=== PATIENT | female | born 1975 | race Caucasian/White ===

== ENCOUNTER 2020-12-21 11:19 | Outpatient (REF) | payer OTHER, SELFPAY ==
[2020-12-21 11:38] LABS: COVID-19 Test Negative (Negative)
== END 2020-12-21 11:20 | disposition home or self-care (01) ==
LOC: HO.EMPCOV 11:19
PROVIDERS: Visit Provider Internal Medicine
DX: Z20.822 Contact with and (suspected) exposure to COVID-19 (principal)
CPT/HCPCS: 36415; 87635; C9803

== ENCOUNTER 2023-04-30 18:46 | Emergency (ER) | payer OTHER, SELFPAY ==
--- NOTE | ~2023-04-30 | CT_ITS ---
EXAMINATION: CT ABDOMEN AND PELVIS WITHOUT CONTRAST CLINICAL INFORMATION: Left flank pain with question of kidney stones COMPARISON: CT abdomen pelvis 08/05/2016 TECHNIQUE: Multidetector volumetric imaging was performed from the superior aspect of the liver through the pubic symphysis. Sagittal and coronal reformatted images were obtained on the technologist's workstation. This CT examination was performed using dose optimization techniques as appropriate, variously including the following: *Automated exposure control *Adjustment of mA and/or kV according to patient size (this includes techniques or standardized protocols for targeted exams where dose is matched to indication/reason for exam; i.e. extremities or head) *Use of iterative reconstruction technique DLP: 709 mGy-cm FINDINGS: LUNG BASES: Some small micronodules are present at the lung bases (for example 3 mm right middle lobe 4:47). No pleural effusions or consolidations. LIVER, GALLBLADDER, AND BILIARY TREE: The liver is enlarged measuring 20.8 cm in cephalocaudad dimension and demonstrates decreased attenuation consistent with hepatic steatosis. No focal hepatic lesion or biliary ductal dilatation is present. Status post cholecystectomy. PANCREAS: Unremarkable. Some coarse calcifications are seen in the tail of the pancreas. SPLEEN: Unremarkable. ADRENAL GLANDS: Unremarkable. KIDNEYS AND URETERS: The kidneys are normal in size and shape. Again seen are findings consistent with medullary nephrocalcinosis with faint calcifications throughout the medullary regions of both kidneys. Some larger calculi are present the largest being in the left upper pole measuring 3 mm. There is mild left-sided pelvocaliectasis with dilatation of the ureter down to the level of a 6 mm stone in the mid to distal ureter. The stone measures 677 Hounsfield units. BLADDER: Unremarkable. GASTROINTESTINAL TRACT: The small and large bowel are unremarkable. The appendix is not seen with certainty but there is no evidence of appendicitis appendicitis. ABDOMINAL WALL: Small periumbilical hernia seen containing only fat. LYMPH NODES: No retroperitoneal lymphadenopathy. VASCULAR: Unremarkable. PELVIC VISCERA: Unremarkable. OSSEOUS STRUCTURES: Unremarkable. CT/CT abdomen pelvis wo IV con IMPRESSION: 1. Obstructing 6 mm mid to distal left ureteral calculus with associated hydronephrosis. 2. Incidental note made of enlarged fatty liver, cholecystectomy and coarse calcifications in the tail of the pancreas. Fleischner guidelines were followed.
[2023-04-30 20:00] VITALS: BP 122/77; PULSE 77; RESP 18; TEMP 36.8; O2SAT 94; BMI 37.8
--- NOTE | 2023-04-30 20:01 | ED.ABDPAIN ---
HPI - Abdominal Pain General Chief Complaint: General Medical Stated Complaint: kidney stones Time Seen by Provider: 05/01/23 00:59 Source: patient Mode of arrival: ambulatory Limitations: no limitations History of Present Illness HPI narrative: Patient's history of frequent kidney stones lastone was 2 years ago comes here for for 3 days of left flank pain getting worse with nausea no vomiting does have hematuria no fever no chills no vomiting Related Data Previous Rx's Medication Instructions Recorded hydromorphone 2 mg tablet 2 mg PO Q6H PRN pain #14 tabs 05/01/23 (Dilaudid) ondansetron 4 mg disintegrating 4 mg PO Q6-8H PRN nausea and 05/01/23 tablet vomiting #10 tabs tamsulosin 0.4 mg capsule (Flomax) 0.4 mg PO BEDTIME #10 caps 05/01/23 Allergies Allergy/AdvReac Type Severity Reaction Status Date / Time erythromycin base Allergy Severe HIVES, Unverified 08/12/20 16:58 [ERYTHROMYCIN BASE] SWELLING morphine [MORPHINE] Allergy Severe SWELLING,HI Unverified 08/12/20 16:58 VES mushroom Allergy Severe SWELLING/HI Unverified 08/12/20 16:58 VES codeine [Codeine] Allergy Intermediate HIVES/SWELL Unverified 08/12/20 16:58 ING meperidine [From Demerol] Allergy Intermediate HIVES/SWELL Unverified 08/12/20 16:58 ING metronidazole [From Flagyl] Allergy Intermediate HIVES/SWELL Unverified 08/12/20 16:58 ING oxycodone [From Tylox] Allergy Intermediate HIVES/SWELL Unverified 08/12/20 16:58 ING Penicillins Allergy Intermediate HIVES/SWELL Unverified 08/12/20 16:58 ING Sulfa (Sulfonamide Allergy Intermediate HIVES/SWELL Unverified 08/12/20 16:58 Antibiotics) ING tramadol [TRAMADOL] Allergy Unknown SWELLING Unverified 08/12/20 16:58 ondansetron [From ZOFRAN] AdvReac Intermediate VOMITING Unverified 08/12/20 16:58 codeine Allergy Unknown swelling, Uncoded 08/07/16 00:00 hives demerol Allergy Unknown swelling Uncoded 08/07/16 00:00 hives e-mycin Allergy Unknown swelling, Uncoded 08/07/16 00:00 hives morphine Allergy Unknown swelling, Uncoded 08/07/16 00:00 hives PCN Allergy Unknown swelling, Uncoded 08/07/16 00:00 hives sulfa Allergy Unknown swelling, Uncoded 08/07/16 00:00 hives toradol Allergy Unknown swelling, Uncoded 08/07/16 00:00 hives vicodin Allergy Unknown vomiting Uncoded 08/07/16 00:00 zofran Allergy Unknown vomiting Uncoded 08/07/16 00:00 From TORADOL AdvReac Severe VOMITING Uncoded 08/12/20 16:58 Review of Systems Review of Systems Yes all other systems are reviewed and are negative PMFSH Social History Social History Advance Directives: No Advance Directives Information Provided: Yes Physical Exam ED Vital Signs: Vital Signs - 24 hr 04/30/23 20:00 04/30/23 22:29 Temperature 98.3 F 97.3 F Pulse Rate 77 79 Respiratory Rate 18 16 Blood Pressure 122/77 142/72 H Pulse Oximetry 94 98 Oxygen Delivery Method Room Air Room Air BMI result Body Mass Index 37.8 Appearance: Alert. Oriented X3. Mild distress pain level 6/10 ENT: Pharynx normal. Oral Mucosa moist Neck: Normal inspection. Neck supple. CVS: Normal heart rate and rhythm. Pulses normal. Respiratory: No respiratory distress. Equal air entry bilateral, Abdomen: Soft and nontender. Bowel sounds are present, , left CVA tenderness Skin: Skin warm and dry. Normal skin color. Normal skin turgor. Neuro: Oriented X 3. Course Course Course Narrative: Patient complains of left flank pain radiating to left groin typical of multiple prior episodes of kidney stones, she is nauseous no vomiting no fever She has had stones which needed to be treated with lithotripsy CT scan urinalysis labs ordered, patient is given Toradol in triage as well as Zofran This is rapid medical exam in triage pending full evaluation in the department by provider Medical Decision Making Lab Data MDM Lab Attestation statement: I reviewed the patient's lab results. 04/30/23 22:41 04/30/23 22:41 Labs: Lab Results 04/30/23 04/30/23 04/30/23 Range/Units 22:41 22:41 22:41 WBC 10.7 (4.8-10.8) X10*3/uL RBC 4.96 (4.20-5.50) X10*6/uL Hgb 13.4 (12.0-16.0) g/dl Hct 41.8 (37.0-47.0) % MCV 84.3 (80.0-98.0) fL MCH 27.0 (27.0-33.0) pg MCHC 32.1 (31.0-35.0) g/dl RDW 14.3 (11.0-16.0) % Plt Count 244 (160-400) X10*3/uL MPV 9.5 (9.4-12.3) fL Immature Gran % (Auto) 0.9 H (0.0-0.4) % Neut % (Auto) 47.8 (45-73) % Lymph % (Auto) 43.1 H (20-40) % [place] % (Auto) 5.5 (2-11) % Eos % (Auto) 2.2 (0-4) % Baso % (Auto) 0.5 (0-2) % Lymph # (Auto) 4.6 (1.2-4.9) X10*3/uL [place] # (Auto) 0.6 (0.1-1.2) X10*3/uL Eos # (Auto) 0.2 (0.0-0.4) X10*3/uL Baso # (Auto) 0.1 (0.0-0.2) X10*3/uL Abs Immat Gran (auto) 0.10 H (0.00-0.03) X10*3/uL Absolute Neuts (auto) 5.1 (2.0-8.3) x10*3/uL Absolute Nucleated RBC 0.000 (0.0-0.012) X10*3/uL Nucleated RBC % (auto) 0.0 (0.0-0.2) /100WBC Sodium 142 (135-145) mmol/L Potassium 4.1 (3.3-5.1) mmol/L Chloride 110 H (96-108) mmol/L Carbon Dioxide 20 L (22-29) mmol/L Anion Gap 16 (12-20) BUN 11 (9-16) mg/dL Creatinine 0.68 (0.5-1.4) mg/dL Estim Creat Clear Calc 104.9 Estimated GFR > 60 Random Glucose 98 (60-115) mg/dL Calcium 8.9 (8.4-10.2) mg/dL Urine Color Yellow Urine Appearance Cloudy Urine pH 6.0 (5.0-9.0) Ur Specific [place] 1.025 (1.005-1.025) Urine Protein 30 (1+) H (Neg-Trace) mg/dL Urine Glucose (UA) Negative (Negative) mg/dL Urine Ketones Trace (Negative) mg/dL Urine Blood Large (3+) H (Negative) Urine Nitrite Negative (Negative) Ur Leukocyte Esterase Negative (Negative) Urine RBC >20 H (0-2) /HPF Urine WBC 6-10 H (0-5) /HPF Ur Squamous Epith Cells 11-20 (0-2) /HPF Urine Bacteria 1+ (None Seen) Hyaline Casts 3-5 (0-2) /LPF Radiology Impression Discussion of test interpretation with radiology: I have reviewed the radiologist's reading. Radiologist Impression: RDER #: [id number] CT/CT abdomen pelvis wo IV con IMPRESSION: 1.? Obstructing 6 mm mid to distal left ureteral calculus with associated hydronephrosis. 2.? Incidental note made of enlarged fatty liver, cholecystectomy and coarse calcifications in the tail of the pancreas. ? Discharge Plan Discharge Clinical Impression: Left ureteral calculus Patient Disposition: Home, Self-Care Instructions: Ureteral Stones (ED) Additional Instructions: Drink plenty of fluids pain medication as prescribed Flomax 1 tablet daily until stone passes follow-up with your urologist if pain continues Prescriptions: New hydromorphone [Dilaudid] 2 mg tablet 2 mg PO Q6H PRN (Reason: pain) Qty: 14 0RF Rx Instructions: Partial Fill upon patient request. ondansetron 4 mg tablet,disintegrating 4 mg PO Q6-8H PRN (Reason: nausea and vomiting) Qty: 10 0RF tamsulosin [Flomax] 0.4 mg capsule 0.4 mg PO BEDTIME Qty: 10 0RF
[2023-04-30 22:29] VITALS: BP 142/72; PULSE 79; RESP 16; TEMP 36.3; O2SAT 98
--- NOTE | 2023-04-30 22:43 | MHC.EDTECH ---
PATIENT BLOOD DRAWN ,URINE SAMPLE COLLECTED AND SENT TO LAB ,VITALS SIGN RE CHECK .
[2023-04-30 22:45] LABS: MANUAL DIFF FLAG NO
[2023-04-30 22:46] LABS: Basophils Absolute Auto 0.1 X10*3/uL (0.0-0.2); Basophils Percent Auto 0.5 % (0-2); Eosinophils Absolute Auto 0.2 X10*3/uL (0.0-0.4); Eosinophils Percent Auto 2.2 % (0-4); Hematocrit 41.8 % (37.0-47.0); Hemoglobin 13.4 g/dl (12.0-16.0); Imm Gran Pct Auto 0.9 % (0.0-0.4); Lymphocytes Absolute Auto 4.6 X10*3/uL (1.2-4.9); Lymphocytes Percent Auto 43.1 % (20-40); Mean Corpuscular HGB Conc 32.1 g/dl (31.0-35.0); Mean Corpuscular Volume 84.3 fL (80.0-98.0); Mean Platelet Volume 9.5 fL (9.4-12.3); Monocytes Absolute Auto 0.6 X10*3/uL (0.1-1.2); Monocytes Percent Auto 5.5 % (2-11); Neutrophils Absolute Auto 5.1 x10*3/uL (2.0-8.3); Neutrophils Percent Auto 47.8 % (45-73); Platelet Count 244 X10*3/uL (160-400); Red Blood Count 4.96 X10*6/uL (4.20-5.50); Red Cell Distribution Width 14.3 % (11.0-16.0); White Blood Count 10.7 X10*3/uL (4.8-10.8)
[2023-04-30 22:47] LABS: Appearance Urine Cloudy; Color Urine Yellow; Glucose Urine UA Negative (Negative); Leukocyte Esterase Urine Negative (Negative); Nitrite Urine Negative (Negative); Specific Gravity - Urine 1.025 (1.005-1.025); UMIC TRIGGER UACC YES; Urine Blood Large (3+) (Negative); Urine Ketones Trace mg/dL (Negative); Urine Protein 30 (1+) mg/dL (Neg-Trace)
[2023-04-30 22:49] LABS: Bacteria Urine 1+ (None Seen); RBC Urine >20 /HPF (0-2); UACC Culture Trigger YES
[2023-04-30 23:04] LABS: Anion Gap 16 (12-20); Blood Urea Nitrogen 11 mg/dL (9-16); Calcium 8.9 mg/dL (8.4-10.2); Carbon Dioxide 20 mmol/L (22-29); Chloride 110 mmol/L (96-108); Creatinine Clr Calc Pharmacy 104.9; Estimated Glomerular Filt Rate > 60; Glucose Random 98 mg/dL (60-115); Potassium 4.1 mmol/L (3.3-5.1); Sodium 142 mmol/L (135-145)
[2023-05-01 02:05] VITALS: BP 141/71; PULSE 68; RESP 12; O2SAT 96
[2023-05-01] MEDS: HYDROmorphone HCl 2 MG/ML VIAL IVPUSH (02:17)
[2023-05-01] MEDS: ondansetron HCL 4 MG/2 ML VIAL IVPUSH (02:18)
[2023-05-01] MEDS: Ketorolac Tromethamine 30 MG/ML VIAL IVPUSH (02:18)
[2023-05-01] MEDS: Tamsulosin HCL 0.4 MG CAPSULE PO (02:19)
[2023-05-01] MEDS: 0.9 % Sodium Chloride 1,000 ML 999 ML IV (02:20)
[2023-05-01] MEDS: Prochlorperazine Edisylate 10 MG/2 ML VIAL IVPUSH (03:15)
--- NOTE | 2023-05-01 03:18 | PC.NURSE ---
Pt reports feeling nausea. MD notified and new orders entered. Pt medicated as ordered. Tolerated well.
[2023-05-01] MEDS: Ondansetron ODT 4 MG TAB.RAPDIS TRANSLINGU (05:43)
== END 2023-05-01 05:45 | disposition home or self-care (01) ==
PROVIDERS: Physician Assistant Medical; Emergency Provider Internal Medicine
DX: N13.2 Hydronephrosis with renal and ureteral calculous obstruction (principal); R10.9 Unspecified abdominal pain; K76.0 Fatty (change of) liver, not elsewhere classified; K86.89 Other specified diseases of pancreas; Z87.442 Personal history of urinary calculi
CPT/HCPCS: 36415; 74176; 80048; 81001; 85025; 87086; 96361; 96374; 96375; 99284; J1170; J1885; J2405

== ENCOUNTER 2024-09-08 00:41 | Emergency (ER) | payer SELFPAY ==
--- NOTE | ~2024-09-08 | CT_ITS ---
EXAMINATION: CT ABDOMEN AND PELVIS WITHOUT CONTRAST CLINICAL INFORMATION: Pain. COMPARISON: April 30, 2023. TECHNIQUE: Multidetector volumetric imaging was performed from the superior aspect of the liver through the pubic symphysis. Sagittal and coronal reformatted images were obtained on the technologist's workstation. This CT examination was performed using dose optimization techniques as appropriate, variously including the following: *Automated exposure control *Adjustment of mA and/or kV according to patient size (this includes techniques or standardized protocols for targeted exams where dose is matched to indication/reason for exam; i.e. extremities or head) *Use of iterative reconstruction technique DLP: 846 mGy-cm FINDINGS: LUNG BASES: The visualized lung bases are unremarkable. LIVER, GALLBLADDER, AND BILIARY TREE: The liver is of mild diminished attenuation. No focal liver lesions are seen. There is no intrahepatic biliary duct dilatation. There has been a prior cholecystectomy. PANCREAS: Unremarkable. SPLEEN: Unremarkable. ADRENAL GLANDS: Unremarkable. KIDNEYS AND URETERS: The kidneys are normal in size and position. The renal pyramids are hyperdense. There multiple bilateral renal calculi measuring up to 9 mm lower pole right kidney. There is mild left hydronephrosis and hydroureter extending into the pelvis to the level of a 5 mm calculus distal left ureter. BLADDER: Unremarkable. GASTROINTESTINAL TRACT: The small and large bowel are unremarkable. The appendix is unremarkable. ABDOMINAL WALL: No significant hernia is appreciated. LYMPH NODES: Normal. VASCULAR: Unremarkable. PELVIC VISCERA: Unremarkable. OSSEOUS STRUCTURES: Unremarkable. CT/CT abdomen pelvis wo IV con IMPRESSION: 1. Mild left hydronephrosis and hydroureter extending into the pelvis to the level of a 5 mm calculus distal left ureter. 2. Multiple bilateral renal calculi and hyperdense renal pyramids which can be seen with medullary nephrocalcinosis. 3. Mild fatty infiltration of the liver. Fleischner guidelines were followed. Electronically signed by: Loki Poole MD 09/08/2024 03:51 AM EDT
[2024-09-08 00:49] VITALS: BP 157/100; PULSE 88; RESP 20; TEMP 5373.8; TEMP 9705; O2SAT 97; BMI 37.8
--- NOTE | 2024-09-08 00:56 | ECG_ITS ---
Test Reason : GRES Blood Pressure : / mmHG Vent. Rate : 070 BPM Atrial Rate : 070 BPM P-R Int : 170 ms QRS Dur : 076 ms QT Int : 400 ms P-R-T Axes : 012 -02 024 degrees QTc Int : 432 ms Normal sinus rhythm Possible Inferior infarct (cited on or before 08-SEP-2024) Abnormal ECG When compared with ECG of 28-JUN-2020 08:57, No significant change was found Referred By: Alexandre Min Electronically Signed By:ASHLEY BORJA
[2024-09-08] MEDS: HYDROmorphone HCl 0.5 MG/0.5 ML SYRINGE IVPUSH ×2 (01:06→04:23)
[2024-09-08] MEDS: Metoclopramide HCl 10 MG/2 ML VIAL IVPUSH (01:06)
--- OUTSIDE RECORDS SUMMARY | 2024-09-08 01:08 | XMS_ITS | Continuity of Care Document ---
Author Organization [facility] Adult Address [address] [place] [address]- Care Team Providers Care Portable Trackman Name Role Phone Ema CORTEZ, Woody Primary Care Physician ( [phone] Encounter [facility] Date(s): 10/03/22 - 11/02/[address] [address]- Allergies, Adverse Reactions, Alerts Substance Reaction Severity Status codeine facial swelling, hives, trouble breathing Active erythromycin facial swelling, dif ficulty breathing swell Active penicillin facial swelling, dif ficulty breathing swell Active morphine facial swelling, dif ficulty breathing swell Active sulfa drugs facial swelling, dif ficulty breathing swell Active Toradol facial swelling, difficulty breathing Active Zofran facial swelling, difficulty breathing Active Percocet facial swelling, difficulty breathing Active Tylox facial swelling, difficulty breathing Active Vicodin facial swelling, difficulty breathing Active Demerol difficulty breathing , full facial swelling swell Active Mushrooms facial swelling, difficulty breathing Active Paxlovid rash Active Immunizations Given and Recorded Vaccine Date Status Refusal Reason SARS-CoV-2 (COVID-19) mRNA BNT-162b2 vac 12/06/20 Recorded SARS-CoV-2 (COVID-19) mRNA BNT-162b2 vac 11/16/20 Recorded influenza virus vaccine, inactivated 09/05/20 Kvng rded influenza virus vaccine, inactivated 09/17/16 Kvng rded influenza virus vaccine, inactivated 10/31/15 Give n tetanus/diphtheria/pertussis, acel(Tdap) 03/07/19 Given Measles/Mumps/Rubella Virus Vaccine 02/15/18 Recor ded Measles/Mumps/Rubella Virus Vaccine 10/28/13 Recor ded Measles/Mumps/Rubella Virus Vaccine 05/06/76 Given pneumococcal 23-valent vaccine 10/31/15 Given tetanus-diphtheria toxoids (Td) 09/04/15 Recorded tetanus-diphtheria toxoids (Td) 1 05/23/07 Given Diphth/Pertussis,Acel/Tetanus (oldterm) 01/13/97 G iven Diphth/Pertussis,Acel/Tetanus (oldterm) 10/26/79 G iven Diphth/Pertussis,Acel/Tetanus (oldterm) 75 G iven Diphth/Pertussis,Acel/Tetanus (oldterm) 75 G iven Diphth/Pertussis,Acel/Tetanus (oldterm) 75 G iven Poliovirus Vaccine, Inactivated 08/18/80 Given Poliovirus Vaccine, Inactivated 11/11/76 Given Poliovirus Vaccine, Inactivated 75 Given Poliovirus Vaccine, Inactivated 75 Given Poliovirus Vaccine, Inactivated 75 Given Not Given Vaccine Date Status Refusal Reason pneumococcal 23-valent vaccine 06/26/14 Not Given Patient Refuses 1Admin Note: VIS GIVEN TO PATIENT. Medications diclofenac 1% topical gel 1 application, Topically, 4 times a day, PRN Pain , Mild, not to exceed 8 grams/day/single joint ofupper extremities, # 100 Gm, 0 Refills, Maintenance, 08/27/22 16:44:00 EDT, Gel, [facility]/pharmacy #[id number], Partial fill upon patient request if the prescript... Start Date: 08/27/22 Status: Ordered losartan 25 mg oral tablet 2 tablet = 50 mg, By Mouth, Daily, # 30 tablet, 5 Refills, 08/21/22 10:34:00 EDT, [facility]/pharmacy #1130, 156, cm, 08/09/22 8:36:00 EDT, Height, 100, kg, 08/07/22 10:52:00 EDT, Dry Weight Start Date: 08/21/22 Status: Ordered omeprazole 40 mg oral enteric coated capsule See Instructions, TAKE 1 CAPSULE EVERY DAY BEFORE A MEAL FOR 30 DAYS, # 30 capsule, 2 Refills, Maintenance, 08/06/22 10:11:00 EDT, [id number], 155, cm, 07/14/22 9:07:00 EDT, Height, 100, kg, 06/07/21 2:39:00 EDT, Dry Weight Start Date: 08/06/22 Status: Ordered predniSONE 10 mg oral tablet See Instructions, 4 tablet By Mouth Daily for 3 days, 3 tabs for 3 days, 2 tabs for 3 days, 1 tab for 3 days, # 30 tablet, 0 Refills, Maintenance, 09/29/22 16:41:00 EDT, [id number], Partial fill upon patient request if the prescription is for... Start Date: 09/29/22 Status: Ordered Ventolin HFA 108 mcg/inh inhalation aerosol with adapter 2 puffs, Inhalation, Every 6 hours, PRN NEEDED FOR WHEEZING/SHORTNESS OF BREATH, # 18 each, 0 Refills, Maintenance, 10/23/22 13:56:00 EST, [id number], 156, cm, 09/29/22 15:57:00 EDT, Height, 100, kg, 08/07/22 10:52:00 EDT, Dry Weight Start Date: 10/23/22 Status: Ordered verapamil 40 mg oral tablet 2 tablet, By Mouth, Daily, # 60 tablet, 5 Refills, Maintenance, 10/06/22 13:05:00 EST, [facility], 156, cm, 09/29/22 15:57:00 EDT, Height, 100, kg, 08/07/22 10:52:00 EDT, Dry Weight Start Date: 10/06/22 Status: Ordered Problem List Condition Confirmation Course Effective Dates Status H ealth Status Informant Atypical nevi Confirmed Active EIN (endometrial intraepithelial neoplasia) Confirmed Active GERD (gastroesophageal reflux disease) Confirmed Active Gout Confirmed Active Hemiplegic migraine Confirmed Active Hidradenitis suppurativa Confirmed Active Hyperlipidemia Confirmed Active Hypertension Confirmed Active Medullary sponge kidney Confirmed Active Severe obesity Confirmed Active Ureterolithiasis Confirmed Active Social History Social History Type Response Tobacco Other: Quit June 27. Sex Female Patient Care team information Care Team Personnel Name: Ana Diaz RN Position: S RN Member Role: Primary Care Nurse Name: Rita Mccall RN Position: S RN Member Role: Primary Care Nurse Name: Woody Boo MD Position: S Primary Care Physician Member Role: PCP Address: Address: [address] [place] [address] [address] [place] [address]- Name: Shannon Dai RN Position: [facility] RN Member Role: Primary Care Nurse Name: Mady Simental RN Position: [facility] RN Member Role: Primary Care Nurse Name: Meek Shin RN Position: [facility] RN Member Role: Primary Care Nurse Name: Chayito Reeves RN Position: [facility] AMB Nurse Member Role: Primary Care Nurse Care Team Related Persons Name: MICHELLE BROOKS Address: home [address] [address] Name: STEPHEN BROOKS Address: home [address] [place] [address] Name: PATRICIA BERNARDO Address: home [address] [place] [address]
--- OUTSIDE RECORDS SUMMARY | 2024-09-08 01:08 | XMS_ITS | Continuity of Care Document ---
Author Organization [facility] Adult Address [address] [place] [address]- Care Team Providers Care Vibration Technician Name Role Phone Ema CORTEZ, Woody Primary Care Physician Encounter [facility] Date(s): 02/23/23 - 03/25/[address] [address]- Allergies, Adverse Reactions, Alerts Substance Reaction Severity [...] 0 Refills, Maintenance, 08/27/22 16:44:00 EDT, Gel, [id number], Partial fill upon patient request if the prescript... Start Date: 08/27/22 Status: Ordered Diflucan 150 mg oral tablet 1 tablet = 150 mg, By Mouth, Once, # 1 tablet, 0 Refills, Soft Stop, 03/19/23 10:27:00 EDT, [facility]t,[id number], Partial fill upon patient request if the prescription is for a schedule II opioid drug., 156, cm, 09/29/22 15:57:00 EDT, Height, 10... Start Date: 03/19/23 Status: Ordered losartan 25 mg oral tablet 2 tablet = 50 mg, By Mouth, Daily, for 30 days, # 60 tablet, 6 Refills, Physician Stop 07/11/23 11:33:00 EDT, 12/13/22 11:33:00 EST, [id number], 156, cm, 09/29/22 15:57:00 EDT, Height, 100, kg, 08/07/22 10:52:00 EDT, Dry Weight Start Date: 12/13/22 Stop Date: 07/11/23 Status: Ordered omeprazole 40 mg oral enteric coated capsule See Instructions, TAKE 1 CAPSULE BY MOUTH EVERY DAY BEFORE MEALS, # 90 capsule, 0 Refills, Maintenance, 02/07/23 11:02:00 EDT, [id number], 156, cm, 09/29/22 15:57:00 EDT, Height, 100, kg, 08/07/22 10:52:00 EDT, Dry Weight Start Date: 02/07/23 Status: Ordered predniSONE 10 mg oral tablet [...] each, 0 Refills, Maintenance, 10/23/22 13:56:00 EST, [facility], 156, cm, 09/29/22 15:57:00 EDT, Height, 100, kg, 08/07/22 10:52:00 EDT, Dry Weight Start Date: 10/23/22 Status: Ordered verapamil 40 mg oral tablet 2 tablet, By Mouth, Daily, # 60 tablet, 5 Refills, Maintenance, 10/06/22 13:05:00 EST, [facility], 156, cm, 09/29/22 15:57:00 EDT, Height, 100, [...] Team Personnel Name: Ana Diaz RN Position: [facility] RN Member Role: Primary Care Nurse Name: Rita Mccall RN Position: [facility] RN Member Role: Primary Care Nurse Name: Woody Boo MD Position: [facility] Primary Care Physician Member Role: PCP Address: Address: [address] [place] [id number] Name: Shannon Dai RN Position: [facility] RN Member Role: Primary Care Nurse Name: Mady Simental RN Position: [facility] RN Member Role: Primary Care Nurse Name: Chayito Reeves RN Position: [facility] Nurse Member Role: Primary Care Nurse Care Team Related Persons Name: MICHELLE BROOKS Address: home [address] [address] Name: STEPHEN BROOKS Address: home [address] [place] [address] Name: PATRICIA BERNARDO Address: home [address] [place] [address]
--- OUTSIDE RECORDS SUMMARY | 2024-09-08 01:08 | XMS_ITS | Continuity of Care Document ---
Author Organization [facility] Adult Address [address] [place] [address]- Care Team Providers Care Computer Education Professor Name Role Phone Ema CORTEZ, Woody Primary Care Physician Encounter [facility] Date(s): 02/25/20 - 03/06/20 [facility] Adult [address] [place] [address]- [facility] Attending Physician: AdmRory [email or web address] Admitting Physician: Admtr, Ar8 Referring Physician: Admtr, Ar8 Allergies, Adverse Reactions, Alerts Substance Reaction Severity [...] Active Mushrooms facial swelling, difficulty breathing Active Immunizations Given and Recorded Vaccine Date Status Refusal Reason tetanus/diphtheria/pertussis, acel(Tdap) 03/07/19 Given influenza virus vaccine, inactivated 10/31/15 Give n pneumococcal 23-valent vaccine 10/31/15 Given tetanus-diphtheria toxoids (Td) 1 05/23/07 Given Diphth/Pertussis,Acel/Tetanus (oldterm) 01/13/97 G iven Diphth/Pertussis,Acel/Tetanus (oldterm) 10/26/79 G iven Diphth/Pertussis,Acel/Tetanus (oldterm) 75 G iven Diphth/Pertussis,Acel/Tetanus (oldterm) 75 G iven Diphth/Pertussis,Acel/Tetanus (oldterm) 75 G iven Poliovirus Vaccine, Inactivated 08/18/80 Given Poliovirus Vaccine, Inactivated 11/11/76 Given Poliovirus Vaccine, Inactivated 75 Given Poliovirus Vaccine, Inactivated 75 Given Poliovirus Vaccine, Inactivated 75 Given Measles/Mumps/Rubella Virus Vaccine 05/06/76 Given Not Given Vaccine Date Status Refusal Reason pneumococcal 23-valent vaccine 06/26/14 Not Given Patient Refuses 1Admin Note: VIS GIVEN TO PATIENT. Medications Colace sodium 100 mg oral capsule 100 mg, 1, capsule, By Mouth, 2 times a day, PRN, # 30 capsule, Refills 0, Tot. Refills 0, Maintenance, for constipation, 10/04/19 8:48:53 EST, Route to Pharmacy Electronically, [id number], [facility]/pharmacy #[id number] Start Date: 10/04/19 Stop Date: 10/18/19 Status: Ordered -Gastroview 66%-10% oral and rectal solution See Instructions, follow instructions provided, # 1 each, 0 Refills, Maintenance, 12/26/19 13:45:00EST, [facility], follow instructions provided, 157.2, cm, 12/26/19 13:26:00 EST, Height, 97.8, kg, 12/26/19 13:26:00 EST, Dry Weight Start Date: 12/26/19 Status: Ordered omeprazole 40 mg oral enteric coated capsule 1 capsule = 40 mg, By Mouth, Daily, # 90 capsule, 10 Refills, Maintenance, 12/05/19 9:09:00 EST, ECCapsule, [facility]/pharmacy #1130, 157.2, cm, 12/05/19 8:46:00 EST, Height, 98.4, kg, 12/05/19 8:46:00 EST, Dry Weight Start Date: 12/05/19 Status: Ordered Senna-Time 8.6 mg oral tablet 2 tablet = 17.2 mg, By Mouth, Daily at bedtime, PRN as needed for constipation, # 50 tablet, 0 Refills, Maintenance, 10/16/19 10:02:33 EST Start Date: 10/16/19 Status: Ordered verapamil 40 mg oral tablet 2 tablet = 80 mg, By Mouth, Daily, # 60 tablet, 5 Refills, Maintenance, 10/22/19 9:41:22 EST Start Date: 10/22/19 Stop Date: 04/19/20 Status: Ordered Problem List Condition Effective Dates Status Health Status Inform ant Atypical nevi(Confirmed) Active 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 Hemiplegic migraine(Confirmed) Active Hyperlipidemia(Confirmed) Active Hypertension(Confirmed) Active Medullary sponge kidney(Confirmed) Active Obesity(Confirmed) Active Ureterolithiasis(Confirmed) Active Social History Social History Type Response Smoking Status Current some day smo ker; Other: smoking only a few cigs a week; entered on: 02/14/16 Sex Female
--- OUTSIDE RECORDS SUMMARY | 2024-09-08 01:09 | XMS_ITS | Continuity of Care Document ---
Author Organization [facility] Adult Address [address] [place] [address]- Care Team Providers Care Clerk Of Scales Name Role Phone Ema CORTEZ, Woody Primary Care Physician Encounter [facility] Date(s): 06/06/21 - 07/06/21 [facility] Adult [address] [place] [address]- Allergies, Adverse Reactions, Alerts Substance Reaction Severity [...] 1Admin Note: VIS GIVEN TO PATIENT. Medications fluconazole 150 mg oral tablet 1 tablet = 150 mg, By Mouth, Once, epeat dose if still having symptoms in 72 hours, # 2 tablet, 0 Refills, Soft Stop, 06/20/21 12:02:00 EDT, Tablet, [facility]/pharmacy #[id number], Partial fill upon patient request if the prescription is for a schedule II opioid... Start Date: 06/20/21 Status: Ordered losartan 25 mg oral tablet 1 tablet = 25 mg, By Mouth, Daily, # 30 tablet, 5 Refills, Maintenance, 01/31/21 18:36:00 EST, Tablet, [facility]/pharmacy #[id number], 157.2, cm, 01/14/21 9:06:00 EST, Height, 97.8, kg, 12/26/19 13:26:00 EST, Dry Weight Start Date: 01/31/21 Status: Ordered omeprazole 40 mg oral enteric coated capsule See Instructions, TAKE 1 CAPSULE EVERY DAY BEFORE A MEAL FOR 30 DAYS, # 30 capsule, 2 Refills, Maintenance, [facility], 155, cm, 06/07/21 12:07:00 EDT, Height, 100, kg, 06/07/21 2:39:00 EDT, DryWeight Start Date: 06/09/21 Status: Ordered verapamil 40 mg oral tablet 2 tablet = 80 mg, By Mouth, Daily, # 60 tablet, 5 Refills, Maintenance, 03/12/21 12:35:00 EDT, [facility], 157.2, cm, 01/14/21 9:06:00 EST, Height, 97.8, kg, 12/26/19 13:26:00 EST, Dry Weight Start Date: 03/12/21 Stop Date: 09/08/21 Status: Ordered Problem List Condition Effective Dates [...]
--- OUTSIDE RECORDS SUMMARY | 2024-09-08 01:09 | XMS_ITS | Continuity of Care Document ---
Author Organization [facility] Address [address] [place] [address]- Care Team Providers Care Strand Forming Machine Operator Name Role Phone Woody Boo MD Primary Care Physician Encounter [facility] Date(s): 04/03/22 - 05/03/22 [facility] [address] [place] [address]- Attending Physician: Admtr, Rory8 Admitting Physician: Admtr, Ar8 Referring Physician: Admtr, [...] 1Admin Note: VIS GIVEN TO PATIENT. Medications losartan 25 mg oral tablet 1 tablet, By Mouth, Daily, # 30 tablet, 5 Refills, 03/09/22 15:48:00 EDT, [facility], 155, cm, 03/08/22 11:00:00 EDT, Height, 100, kg, 06/07/21 2:39:00 EDT, Dry Weight Start Date: 03/09/22 Status: Ordered omeprazole 40 mg oral enteric coated capsule See Instructions, TAKE 1 CAPSULE EVERY DAY BEFORE A MEAL FOR 30 DAYS, # 30 capsule, 2 Refills, [facility], 155, cm, 03/08/22 11:00:00 EDT, Height, 100, kg, 06/07/21 2:39:00 EDT, Dry Weight Start Date: 04/27/22 Status: Ordered verapamil 40 mg oral tablet 2 tablet, By Mouth, Daily, # 60 tablet, 2 Refills, [facility], 155, cm, 03/08/22 11:00:00 EDT,Height, 100, kg, 06/07/21 2:39:00 EDT, Dry Weight Start Date: 04/15/22 Status: Ordered Problem List Condition Effective Dates Status Health Status Inform ant Atypical nevi(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
--- OUTSIDE RECORDS SUMMARY | 2024-09-08 01:09 | XMS_ITS | Continuity of Care Document ---
Author Organization [facility] ter Address [address] [place] [address]- Care Team Providers Care Drawer In Stitch Bonding Machine Name Role Phone Ema CORTEZ, Woody Primary Care Physician Encounter [facility] Date(s): 11/13/19 - 11/13/[address] [address]- [facility] Attending Physician: Rodger CORTEZ, Roly Mendoza Allergies, Adverse Reactions, Alerts Substance Reaction Severity [...] 1Admin Note: VIS GIVEN TO PATIENT. Medications Benadryl 25 mg oral capsule 1 capsule = 25 mg, By Mouth, 3 times a day, PRN for itching, # 30 capsule, 0 Refills, Maintenance, 10/22/19 18:53:20 EST, Capsule Start Date: 10/22/19 Status: Ordered Colace sodium 100 mg oral capsule 100 mg, 1, capsule, By Mouth, 2 times a day, PRN, # 30 capsule, Refills 0, Tot. Refills 0, Maintenance, for constipation, 10/04/19 8:48:53 EST, Route to Pharmacy Electronically, [id number], [facility]/pharmacy #1130 Start Date: 10/04/19 Stop Date: 10/18/19 Status: Ordered Diflucan 150 mg oral tablet 1 tablet = 150 mg, By Mouth, Once, # 1 tablet, 1 Refills, Soft Stop, 11/12/19 11:30:00 EST, Tablet,[facility]/pharmacy #1130, 157.2, cm, 11/12/19 10:54:00 EST, Height, 96.5, kg, 11/12/19 10:54:00 EST, Dry Weight Start Date: 11/12/19 Status: Ordered Dilaudid 2 mg oral tablet 1 tablet = 2 mg, By Mouth, Every 4 hours, PRN as needed for pain, 0 Refills, Maintenance, 10/22/19 18:53:33 EST, Tablet, Partial fill upon patient request Start Date: 10/22/19 Status: Ordered omeprazole 40 mg oral enteric coated capsule 1 capsule = 40 mg, By Mouth, Daily, # 30 capsule, 0 Refills, Maintenance, 10/16/19 10:02:21 EST Start Date: 10/16/19 Status: Ordered oxybutynin 10 mg/24 hr oral tablet, extended release 1 tablet = 10 mg, By Mouth, Daily, # 14 tablet, 0 Refills, Maintenance, 10/23/19 12:21:57 EST, ER Tablet Start Date: 10/23/19 Stop Date: 11/06/19 Status: Ordered prochlorperazine 5 mg oral tablet 1 tablet = 5 mg, By Mouth, 3 times a day, PRN Vomiting, # 10 tablet, 0 Refills, Maintenance, 09/28/19 15:25:21 EST, Tablet Start Date: 09/28/19 Status: Ordered Senna-Time 8.6 mg oral tablet [...] History Social History Type Response Smoking Status Former smoker entered on: 09/29/16 Sex Female
--- OUTSIDE RECORDS SUMMARY | 2024-09-08 01:09 | XMS_ITS | Continuity of Care Document ---
Author Organization [facility] Adult Address [address] [place] [address]- Care Team Providers Care Lumber Stacker Operator Name Role Phone Ema CORTEZ, Woody Primary Care Physician ( [phone] Encounter [facility] Date(s): 08/08/22 - 09/07/22 [facility] [address] [place] [address]- Allergies, Adverse Reactions, Alerts Substance Reaction Severity [...] Kvng rded influenza virus vaccine, inactivated 09/17/16 Knvg rded influenza virus vaccine, inactivated 10/31/15 Give [...] the prescript... Start Date: 08/27/22 Status: Ordered doxycycline hyclate 100 mg oral capsule 1 capsule = 100 mg, By Mouth, 2 times a day, for 10 days, # 20 capsule, 0 Refills, Acute 09/08/22 9:30:00 EDT, 08/29/22 9:30:00 EDT, Capsule, [facility], Partial fill upon patient request if the prescription is for a schedule II opioid drug.,... Start Date: 08/29/22 Stop Date: 09/08/22 Status: Ordered losartan 25 mg oral tablet 2 tablet = 50 mg, By Mouth, Daily, # 30 tablet, 5 Refills, 08/21/22 10:34:00 EDT, [facility], 156, cm, 08/09/22 8:36:00 EDT, Height, 100, kg, 08/07/22 10:52:00 EDT, Dry Weight Start Date: 08/21/22 Status: Ordered omeprazole 40 mg oral enteric coated capsule See Instructions, TAKE 1 CAPSULE EVERY DAY BEFORE A MEAL FOR 30 DAYS, # 30 capsule, 2 Refills, Maintenance, 08/06/22 10:11:00 EDT, [email or web address], 155, cm, 07/14/22 9:07:00 EDT, Height, 100, kg, 06/07/21 2:39:00 EDT, Dry Weight Start Date: 08/06/22 Status: Ordered verapamil 40 mg oral tablet 2 tablet, By Mouth, Daily, # 60 tablet, 2 Refills, [facility], 155, cm, 03/08/22 11:00:00 EDT,Height, 100, kg, 06/07/21 2:39:00 EDT, Dry Weight Start Date: 07/04/22 Status: Ordered Problem List Condition Confirmation Course [...] 27. Sex Female Patient Care team information Personnel Name: Woody Boo MD Address: Address: [address] [place], [place] [address]
--- OUTSIDE RECORDS SUMMARY | 2024-09-08 01:09 | XMS_ITS | Continuity of Care Document ---
Author Organization [facility] Address [address] [place] [address]- Care Team Providers Care Clinical Statistics Manager Name Role Phone Woody Boo MD Primary Care Physician Encounter [facility] Date(s): 09/17/19 - 11/20/19 [facility] [address] [place] [address]- [facility] Attending Physician: Clemencia Og MD Admitting Physician: Clemencia Og MD Referring Physician: Woody Boo MD Allergies, Adverse Reactions, Alerts Substance Reaction Severity [...] 10/04/19 8:48:53 EST, Route to Pharmacy Electronically, [id number], [facility]/pharmacy #1130 Start Date: 10/04/19 Stop Date: 10/18/19 Status: Ordered Diflucan 150 mg oral tablet 1 tablet = 150 mg, By Mouth, Once, # 1 tablet, 1 Refills, Soft Stop, 11/12/19 11:30:00 EST, Tablet,[facility]/pharmacy #1130, 157.2, cm, 11/12/19 10:54:00 EST, Height, [...]
--- OUTSIDE RECORDS SUMMARY | 2024-09-08 01:09 | XMS_ITS | Continuity of Care Document ---
Author Organization [facility] Address [address] [place] [address]- Care Team Providers Care Visiting Professor Name Role Phone Woody Boo MD Primary Care Physician [facility]counter [facility] Date(s): 05/16/23 - 06/20/[address] [address] Attending Physician: Tommy Marie MD, I Admitting Physician: Tommy Marie MD, I Referring Physician: Tommy Marie MD, I Allergies, Adverse Reactions, Alerts Substance Reaction Severity Status codeine facial swelling, hives, trouble breathing Active Percocet facial swelling, difficulty breathing Active erythromycin facial swelling, dif ficulty breathing swell Active morphine facial swelling, dif ficulty breathing swell Active penicillin facial swelling, dif ficulty breathing swell Active sulfa drugs facial swelling, dif ficulty breathing swell Active Toradol facial swelling, difficulty breathing Active Vicodin facial swelling, difficulty breathing Active Zofran facial swelling, difficulty breathing Active Tylox facial swelling, difficulty breathing Active Demerol difficulty [...] 1Admin Note: VIS GIVEN TO PATIENT. Medications albuterol CFC free 90 mcg/inh inhalation aerosol 2, puffs, Inhalation, Every 4 hours, PRN, or cough, # 1 each, Refills 0, Tot. Refills 0, Maintenance, 05/08/23 13:47:00 EDT, Route to Pharmacy Electronically, [id number], [facility]/pharmacy #0693, 156, cm, 05/08/23 13:27:00 EDT, He... Start Date: 05/08/23 Stop Date: 06/07/23 Status: Ordered diclofenac 1% topical gel 1 application, Topically, 4 times a day, PRN Pain , Mild, not to exceed 8 grams/day/single joint ofupper extremities, # 100 Gm, 0 Refills, Maintenance, 08/27/22 16:44:00 EDT, Gel, [facility]/pharmacy #1130, Partial fill upon patient request if the prescript... Start Date: 08/27/22 Status: Ordered Diflucan 150 mg oral tablet 1 tablet = 150 mg, By Mouth, Once, # 1 tablet, 0 Refills, Soft Stop, 03/19/23 10:27:00 EDT, Tablet,[facility]/pharmacy #1130, Partial fill upon patient request if the prescription is for a schedule II opioid drug., 156, cm, 09/29/22 15:57:00 EDT, Height, 10... Start Date: 03/19/23 Status: Ordered losartan 25 mg oral tablet 2 tablet = 50 mg, By Mouth, Daily, for 30 days, # 60 tablet, 6 Refills, Physician Stop 07/11/23 11:33:00 EDT, 12/13/22 11:33:00 EST, [facility]/pharmacy #1130, 156, cm, 09/29/22 15:57:00 EDT, Height, 100, kg, 08/07/22 10:52:00 EDT, Dry Weight Start Date: 12/13/22 Stop Date: 07/11/23 Status: Ordered omeprazole 40 mg oral enteric coated capsule See Instructions, TAKE 1 CAPSULE BY MOUTH EVERY DAY BEFORE A MEAL, # 90 capsule, 1 Refills, Maintenance, 05/10/23 12:47:00 EDT, [facility] STORE 73842, 156, cm, 05/08/23 13:27:00 EDT, Height, 100, kg, 08/07/22 10:52:00 EDT, Dry Weight Start Date: 05/10/23 Status: Ordered predniSONE 10 mg oral tablet See Instructions, 4 tablet By Mouth Daily for 3 days, 3 tabs for 3 days, 2 tabs for 3 days, 1 tab for 3 days, # 30 tablet, 0 Refills, Maintenance, 09/29/22 16:41:00 EDT, [facility]/pharmacy #1130, Partial fill upon patient request if the prescription is for... Start Date: 09/29/22 Status: Ordered ProAir HFA 90 mcg/inh inhalation aerosol with adapter 2, puffs, Inhalation, Every 4 hours, PRN, # 8.5 Gm, Refills 0, Tot. Refills 0, Maintenance, 03/29/23 13:11:00 EDT, Aerosol, Route to Pharmacy Electronically, [id number], [facility], 156, cm, 03/29/23 12:30:00 EDT, Hei... Start Date: 03/29/23 Status: Ordered Ventolin HFA 108 mcg/inh inhalation aerosol with adapter 2 puffs, Inhalation, Every 6 hours, PRN NEEDED FOR WHEEZING/SHORTNESS OF BREATH, # 18 each, 0 Refills, Maintenance, 10/23/22 13:56:00 EST, [facility], 156, cm, 09/29/22 15:57:00 EDT, Height, 100, kg, 08/07/22 10:52:00 EDT, Dry Weight Start Date: 10/23/22 Status: Ordered verapamil 40 mg oral tablet 2 tablet, By Mouth, Daily, # 180 tablet, 1 Refills, Maintenance, 04/05/23 13:32:00 EDT, [facility], 156, cm, 03/29/23 12:30:00 EDT, Height, 100, kg, 08/07/22 10:52:00 EDT, Dry Weight Start Date: 04/05/23 Status: Ordered Problem List Condition Confirmation Course [...] Team Personnel Name: Ana Diaz RN Position: [facility] RN Member Role: Primary Care Nurse Name: Rita Mccall RN Position: [facility] RN Member Role: Primary Care Nurse Name: Woody Boo MD Position: [facility] Physician - Primary Care Member Role: PCP Address: Address: [address] [place] [address] [address]rd [place] [address]- Name: Shannon Dai RN Position: [facility] RN Member Role: Primary Care Nurse Name: Mady Simental RN Position: [facility] RN Member Role: Primary Care Nurse Name: Chayito Reeves Position: [facility] AMB Nurse Member Role: Primary Care Nurse Care Team Related Persons Name: MICHELLE BROOKS Address: home [address] [address] Name: STEPHEN BROOKS Address: home [address] [place] [address] Name: PATRICIA BERNARDO Address: home [address] [place] [address]
--- OUTSIDE RECORDS SUMMARY | 2024-09-08 01:09 | XMS_ITS | Continuity of Care Document ---
Author Organization [facility] Address [address] [place] [address]- Care Team Providers Care Casting And Curing Operator Name Role Phone Ema CORTEZ, Woody Primary Care Physician [facility]counter [facility] Date(s): 08/14/23 - 09/13/23 [facility] [address] [place] [phone]- Allergies, Adverse Reactions, Alerts Substance Reaction Severity Status codeine facial swelling, hives, trouble breathing Active Percocet facial swelling, difficulty breathing Active Tylox facial swelling, difficulty breathing Active Demerol difficulty breathing , full facial swelling swell Active erythromycin facial swelling, dif ficulty breathing swell Active morphine facial swelling, dif ficulty breathing swell Active penicillin facial swelling, dif ficulty breathing swell Active sulfa drugs facial swelling, dif ficulty breathing swell Active Toradol facial swelling, difficulty breathing Active Vicodin facial swelling, difficulty breathing Active Zofran facial swelling, difficulty breathing Active Mushrooms facial swelling, difficulty breathing Active [...] 75 Given Poliovirus Vaccine, Inactivated 75 Given 1Admin Note: VIS GIVEN TO PATIENT. Medications albuterol 90 mcg/inh inhalation powder 2 puffs, Inhalation, Every 6 hours, PRN as needed, # 1 each, 0 Refills, Maintenance, 08/14/23 12:53:00 EDT, Powder, [facility]/pharmacy #0656, Give whichever brand is covered. Partial fill upon patient request if the prescription is for a schedule II opioid... Start Date: 08/14/23 Status: Ordered albuterol CFC free 90 mcg/inh inhalation aerosol 2, puffs, Inhalation, Every 4 hours, PRN, or cough, # 1 each, Refills 0, Tot. Refills 0, Maintenance, 05/08/23 13:47:00 EDT, Route to Pharmacy Electronically, [id number], [facility]/pharmacy #0693, 156, cm, 05/08/23 13:27:00 EDT, He... Start Date: 05/08/23 Stop Date: 06/07/23 Status: Ordered diclofenac 1% topical gel 1 application, Topically, 4 times a day, PRN Pain , Mild, not to exceed 8 grams/day/single joint ofupper extremities, # 100 Gm, 0 Refills, Maintenance, 08/27/22 16:44:00 EDT, Gel, [facility]/pharmacy #1130, Partial fill upon patient request if the prescript... Start Date: 08/27/22 Status: Ordered fluconazole 150 mg oral tablet 1 tablet = 150 mg, By Mouth, Once, repeat dose if still having symptoms in 72 hours, # 2 tablet, 0 Refills, Soft Stop, 08/31/23 12:04:00 EDT, Tablet, [facility]/pharmacy #0693, Partial fill upon patient request if the prescription is for a schedule II opioid... Start Date: 08/31/23 Status: Ordered losartan 25 mg oral tablet 2 tablet = 50 mg, By Mouth, Daily, for 30 days, # 60 tablet, 6 Refills, Physician Stop 02/19/24 16:33:00 EDT, 07/24/23 16:33:00 EDT, [facility]/pharmacy #0693, 155, cm, 05/10/23 23:27:00 EDT, Height, 100, kg, 08/07/22 10:52:00 EDT, Dry Weight Start Date: 07/24/23 Stop Date: 02/19/24 Status: Ordered omeprazole 40 mg oral enteric coated capsule See Instructions, TAKE 1 CAPSULE BY MOUTH EVERY DAY BEFORE A MEAL, # 90 capsule, 1 Refills, Maintenance, 05/10/23 12:47:00 EDT, [facility] STORE 37038, 156, cm, 05/08/23 13:27:00 EDT, Height, 100, kg, 08/07/22 10:52:00 EDT, Dry Weight Start Date: 05/10/23 Status: Ordered ProAir HFA 90 mcg/inh inhalation aerosol with adapter 2, puffs, Inhalation, Every 4 hours, PRN, # 8.5 Gm, Refills 0, Tot. Refills 0, Maintenance, 03/29/23 13:11:00 EDT, Aerosol, Route to Pharmacy Electronically, [id number], [facility]/pharmacy #1130, 156, cm, 03/29/23 12:30:00 EDT, Hei... Start Date: 03/29/23 Status: Ordered Ventolin HFA 108 mcg/inh inhalation aerosol with adapter 2 puffs, Inhalation, Every 6 hours, PRN NEEDED FOR WHEEZING/SHORTNESS OF BREATH, # 18 each, 0 Refills, Maintenance, 10/23/22 13:56:00 EST, [facility], 156, cm, 09/29/22 15:57:00 EDT, Height, 100, kg, 08/07/22 10:52:00 EDT, Dry Weight Start Date: 10/23/22 Status: Ordered verapamil 40 mg oral tablet 2 tablet, By Mouth, Daily, # 180 tablet, 1 Refills, Maintenance, 04/05/23 13:32:00 EDT, [facility], 156, cm, 03/29/23 12:30:00 EDT, Height, 100, [...] Team Personnel Name: Ana Diaz RN Position: [facility] RN Member Role: Primary Care Nurse Name: Rita Mccall RN Position: [facility] RN Member Role: Primary Care Nurse Name: Woody Boo MD Position: [facility] Physician - Primary Care Member Role: PCP Address: Address: [address] [place] [id number] Name: Shannon Dai RN Position: [facility] RN Member Role: Primary Care Nurse Name: Mady Simental RN Position: S RN Member Role: Primary Care Nurse Name: Chayito Reeves RN Position: [facility] AMB Nurse Member Role: Primary Care Nurse Care Team Related Persons Name: MICHELLE BROOKS Address: home [address] [address] Name: STEPHEN BROOKS Address: home [address] [place] [address] Name: PATRICIA BERNARDO Address: home [address] [place] [address]
--- OUTSIDE RECORDS SUMMARY | 2024-09-08 01:09 | XMS_ITS | Continuity of Care Document ---
Author Organization [facility] Address [address] [place] [address]- Care Team Providers Care Information Systems Supervisor Name Role Phone Ema CORTEZ, Woody Primary Care Physician [facility] Date(s): 10/04/22 - 11/03/[address] [address]- Allergies, Adverse Reactions, Alerts Substance Reaction Severity [...] 0 Refills, Maintenance, 08/27/22 16:44:00 EDT, Gel, [facility]/pharmacy #1130, Partial fill upon patient request if the prescript... Start Date: 08/27/22 Status: Ordered losartan 25 mg oral tablet 2 tablet = 50 mg, By Mouth, Daily, # 30 tablet, 5 Refills, 08/21/22 10:34:00 EDT, [facility]/pharmacy #1130, 156, cm, 08/09/22 8:36:00 EDT, Height, 100, kg, 08/07/22 10:52:00 EDT, Dry Weight Start Date: 08/21/22 Status: Ordered omeprazole 40 mg oral enteric coated capsule See Instructions, TAKE 1 CAPSULE EVERY DAY BEFORE A MEAL FOR 30 DAYS, # 30 capsule, 2 Refills, Maintenance, 08/06/22 10:11:00 EDT, [facility], 155, cm, 07/14/22 9:07:00 EDT, Height, 100, [...] each, 0 Refills, Maintenance, 10/23/22 13:56:00 EST, [facility], 156, cm, 09/29/22 15:57:00 EDT, Height, 100, kg, 08/07/22 10:52:00 EDT, Dry Weight Start Date: 10/23/22 Status: Ordered verapamil 40 mg oral tablet 2 tablet, By Mouth, Daily, # 60 tablet, 5 Refills, Maintenance, 10/06/22 13:05:00 EST, [facility], 156, cm, 09/29/22 15:57:00 EDT, Height, 100, [...] Care Physician Member Role: PCP Address: Address: [address] [place] [address] [address] [place] [address]- Name: Shannon Dai RN Position: [facility] RN Member Role: Primary Care Nurse Name: Mady Simental RN Position: [facility] RN Member Role: Primary Care Nurse Name: Meek Shin RN Position: [facility] RN Member Role: Primary Care Nurse Name: Chayito Reeves RN Position: [facility] AMB Nurse Member Role: Primary Care Nurse Care Team Related Persons Name: MICHELLE BROOKS Address: home [address] [address] Name: STEPHEN BROOKS Address: home [address] [place] [address] Name: PATRICIA BERNARDO Address: home [address] [place] [address]
--- OUTSIDE RECORDS SUMMARY | 2024-09-08 01:09 | XMS_ITS | Continuity of Care Document ---
Author Organization [facility] Address [address] [place] [address]- Care Team Providers Care Delinquency Counselor Name Role Phone Ema CORTEZ, Woody Primary Care Physician [facility] Date[facility]s): 08/09/22 - 09/08/22 [facility] [address] [place] [phone]- Allergies, Adverse Reactions, Alerts Substance Reaction Severity [...] 0 Refills, Maintenance, 08/27/22 16:44:00 EDT, Gel, [facility]/pharmacy #1130, Partial fill upon patient request if the prescript... Start Date: 08/27/22 Status: Ordered losartan 25 mg oral tablet 2 tablet = 50 mg, By Mouth, Daily, # 30 tablet, 5 Refills, 08/21/22 10:34:00 EDT, [facility]/pharmacy #1130, 156, cm, 08/09/22 8:36:00 EDT, Height, 100, kg, 08/07/22 10:52:00 EDT, Dry Weight Start Date: 08/21/22 Status: Ordered omeprazole 40 mg oral enteric coated capsule See Instructions, TAKE 1 CAPSULE EVERY DAY BEFORE A MEAL FOR 30 DAYS, # 30 capsule, 2 Refills, Maintenance, 08/06/22 10:11:00 EDT, [facility], 155, cm, 07/14/22 9:07:00 EDT, Height, 100, kg, 06/07/21 2:39:00 EDT, Dry Weight Start Date: 08/06/22 Status: Ordered verapamil 40 mg oral tablet 2 tablet, By Mouth, Daily, # 60 tablet, 2 Refills, [facility], 155, cm, 03/08/22 11:00:00 EDT,Height, 100, kg, [...] Personnel Name: Woody Boo MD Address: [facility] 3rd [address] [place], [place] [address]
--- OUTSIDE RECORDS SUMMARY | 2024-09-08 01:09 | XMS_ITS | Continuity of Care Document ---
Author Organization [facility] Address [address] [place] [address]- Care Team Providers Care Hot Strip Mill Supervisor Name Role Phone Ema CORTEZ, Woody Primary Care Physician [place] [facility] [place] 06[place]12/20 - 06/19/20 [facility] [address] [place] [address]- [facility] Attending Physician: Damir Adam Referring Physician: Negra CORTEZ, Rory Yan Allergies, Adverse Reactions, Alerts Substance Reaction Severity [...] Active Percocet facial swelling, difficulty breathing Active Vicodin facial swelling, difficulty breathing Active Demerol difficulty breathing , full facial swelling swell Active Mushrooms facial swelling, difficulty breathing Active Tylox facial swelling, difficulty breathing Active Immunizations Given [...] 10/04/19 8:48:53 EST, Route to Pharmacy Electronically, [id number], [facility]/pharmacy #1130 Start Date: 10/04/19 Stop Date: 10/18/19 Status: Ordered omeprazole 40 mg oral enteric coated capsule 1 capsule = 40 mg, By Mouth, Daily, # 90 capsule, 10 Refills, Maintenance, 12/05/19 9:09:00 EST, ECCapsule, [facility]/pharmacy #1130, 157.2, cm, 12/05/19 8:46:00 EST, [...] sponge kidney(Confirmed) Active Obesity(Confirmed) Active Ureterolithiasis(Confirmed) Active Vital Signs Most recent to oldest [Reference Range]: 1 Height 157.2 cm (06/12/20 10:19 AM) Oxygen Saturation [94-100 %] 100 % (06/12/20 10:19 AM) Pulse Rate [55-90 bpm] 100 bpm *H* (06/12/20 10:19 AM) Blood Pressure [90-138/55-84 mm Hg] 144/ 97mm Hg *H* (06/12/20 10:19 AM) Respiratory Rate [16-30 br/min] 18 br/mi n (06/12/20 10:19 AM) Temperature [96.8-100.4 DegF] 99.4 DegF (06/12/20 10:19 AM) Blood pressure sites Arm, left (06/12/20 10:19 AM) Temperature Route Oral (06/12/20 10:19 AM) Social History Social History Type Response Smoking Status Current some day smo ker; Other: smoking only a few cigs a week; entered on: 02/14/16 Sex Female
--- OUTSIDE RECORDS SUMMARY | 2024-09-08 01:09 | XMS_ITS | Continuity of Care Document ---
Author Organization [facility] Adult Address [address] [place] [address]- Care Team Providers Care Timekeeper Supervisor Name Role Phone Ema CORTEZ, Woody Primary Care Physician [place] [facility] [place] 03/31/22 - 05/03/22 [facility] [address] [place] [address]- Attending Physician: Jennifer JOSEPH, Jovita Sykes Allergies, Adverse Reactions, Alerts Substance Reaction Severity [...] 30 tablet, 5 Refills, 03/09/22 15:48:00 EDT, [facility]/pharmacy #1130, 155, cm, 03/08/22 11:00:00 EDT, Height, 100, kg, 06/07/21 2:39:00 EDT, Dry Weight Start Date: 03/09/22 Status: Ordered omeprazole 40 mg oral enteric coated capsule See Instructions, TAKE 1 CAPSULE EVERY DAY BEFORE A MEAL FOR 30 DAYS, # 30 capsule, 2 Refills, [facility], 155, cm, 03/08/22 11:00:00 EDT, Height, 100, kg, 06/07/21 2:39:00 EDT, Dry Weight Start Date: 04/27/22 Status: Ordered verapamil 40 mg oral tablet 2 tablet, By Mouth, Daily, # 60 tablet, 2 Refills, [facility], 155, cm, 03/08/22 11:00:00 EDT,Height, 100, kg, [...]
--- OUTSIDE RECORDS SUMMARY | 2024-09-08 01:09 | XMS_ITS | Continuity of Care Document ---
Author Organization 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 Oncology [address] [place] [address]- [facility] Attending Physician: Clemencia Og MD Admitting Physician: Clemencia Og MD Referring Physician: Aaron CORTEZ, Frederick Allergies, Adverse Reactions, Alerts Substance Reaction Severity [...] 10/04/19 8:48:53 EST, Route to Pharmacy Electronically, [id number], [facility]/pharmacy #1130 Start Date: 10/04/19 Stop Date: 10/18/19 Status: Ordered Diflucan 150 mg oral tablet 1 tablet = 150 mg, By Mouth, Once, # 1 tablet, 1 Refills, Soft Stop, 11/12/19 11:30:00 EST, Tablet,[facility]/pharmacy #1130, 157.2, cm, 11/12/19 10:54:00 EST, Height, [...]
--- OUTSIDE RECORDS SUMMARY | 2024-09-08 01:09 | XMS_ITS | Continuity of Care Document ---
Author Organization [facility] ter Address [address] [place] [address]- Care Team Providers Care Activity Aide Name Role Phone Woody Boo MD Primary Care Physician Encounter [facility] [place] Date(s): 11/24/19 - 11/25/[address] [address]- [facility] Encounter Diagnosis Renal colic on right side(Final) - 11/25/19 Discharge Disposition: A-D/C Home Attending Physician: Edgardo Rubio MD Admitting Physician: Edgardo Rubio MD Referring Physician: Not on Staff, Referring MD Allergies, Adverse Reactions, Alerts Substance Reaction [...] 10/04/19 8:48:53 EST, Route to Pharmacy Electronically, [id number], [facility]/pharmacy #1130 Start Date: 10/04/19 Stop Date: 10/18/19 Status: Ordered Diflucan 150 mg oral tablet 1 tablet = 150 mg, By Mouth, Once, # 1 tablet, 1 Refills, Soft Stop, 11/12/19 11:30:00 EST, Tablet,[facility]/pharmacy #1130, 157.2, cm, 11/12/19 10:54:00 EST, Height, [...] Most recent to oldest [Reference Range]: 1 2 3 Weight 98.4 kg (11/24/19 8:01 PM) Oxygen Saturation [94-100 %] 96 % (11/25/19 5:40 AM) 99 % (11/25/19 1:57 AM) 97 % (11/24/19 8:01 PM) Pulse Rate [55-90 bpm] 75 bpm (11/25/19 5:40 AM) 74 bpm (11/25/19 1:57 AM) 87 bpm (11/24/19 8:01 PM) Blood Pressure [90-138/55-84 mm Hg] 125/80mm Hg (11/25/19 5:40 AM) 126/91mm Hg (11/25/19 1:57 AM) 145/89mm Hg *H* (11/24/19 8:01 PM) Respiratory Rate [16-30 br/min] 16 br/min (11/25/19 5:40 AM) 16 br/min (11/25/19 1:57 AM) 16 br/min (11/24/19 8:01 PM) Temperature [96.8-100.4 DegF] 97.7 DegF (11/25/19 1:57 AM) 98.3 DegF (11/24/19 8:01 PM) Mode of Delivery (Oxygen) Room air (11/25/19 5:40 AM) Room air (11/25/19 1:57 AM) Room air (11/24/19 8:01 PM) Blood pressure sites Arm, left (11/25/19 1:57 AM) Arm, left (11/24/19 8:01 PM) Temperature Route Oral (11/25/19 1:57 AM) Oral (11/24/19 8:01 PM) Dry Weight 98.4 kg (11/24/19 8:01 PM) Weight Obtained Via Standing scale (11/24/19 8:01 PM) Social History Social History Type Response Smoking Status Former smoker entered on: 09/29/16 Sex Female
--- OUTSIDE RECORDS SUMMARY | 2024-09-08 01:09 | XMS_ITS | Continuity of Care Document ---
Author Organization [facility] Address [address] [place] [address]- Care Team Providers Care Hydrostatic Tester Name Role Phone Ema CORTEZ, Woody Primary Care Physician Encounter [facility] Date(s): 02/18/21 - 03/20/21 [facility] [address] [place] [address]- Allergies, Adverse Reactions, Alerts Substance Reaction Severity [...] Medications losartan 25 mg oral tablet 1 tablet = 25 mg, By Mouth, Daily, # 30 tablet, 5 Refills, Maintenance, 01/31/21 18:36:00 EST, [facility]t, [facility], 157.2, cm, 01/14/21 9:06:00 EST, Height, 97.8, kg, 12/26/19 13:26:00 EST, Dry Weight Start Date: 01/31/21 Status: Ordered omeprazole 40 mg oral enteric coated capsule 1 capsule = 40 mg, By Mouth, Daily, before a meal, # 30 capsule, 5 Refills, Maintenance, 12/14/20 11:15:00 EST, EC Capsule, [facility], Partial fill upon patient request if the prescription is for a schedule II opioid drug., 157.2, cm, ... Start Date: 12/14/20 Stop Date: 06/12/21 Status: Ordered verapamil 40 mg oral tablet [...] a few cigs a week; entered on: 3/21/16 Sex Female
--- OUTSIDE RECORDS SUMMARY | 2024-09-08 01:09 | XMS_ITS | Continuity of Care Document ---
Author Organization [facility] Address [address] [place] [address]- Care Team Providers Care Doll Wig Maker Name Role Phone Ema CORTEZ, Woody Primary Care Physician [place] [facility] [place] Date[place]s): 08/14/23 - 08/21/23 [facility] [address] [place] [address]- Encounter Diagnosis Cough(Discharge Diagnosis) - 08/14/23 Acute bronchitis(Discharge Diagnosis) - 08/14/23 Attending Physician: Roxane Guillen MD Referring Physician: Woody Boo MD Allergies, [...] 0 Refills, Maintenance, 08/14/23 12:53:00 EDT, Powder, [facility]/pharmacy #0669, Give whichever brand is covered. Partial fill upon patient request if the prescription is for a schedule II opioid... Start Date: 08/14/23 Status: Ordered albuterol CFC free 90 mcg/inh inhalation aerosol 2, puffs, Inhalation, Every 4 hours, PRN, or cough, # 1 each, Refills 0, Tot. Refills 0, Maintenance, 05/08/23 13:47:00 EDT, Route to Pharmacy Electronically, [id number], [facility]/pharmacy #0693, 156, cm, 05/08/23 13:27:00 EDT, He... Start Date: 05/08/23 Stop Date: 06/07/23 Status: Ordered benzonatate 200 mg oral capsule 1 capsule = 200 mg, By Mouth, 3 times a day, PRN as needed for cough, for 14 days, # 42 capsule, 0 Refills, Acute 08/28/23 12:53:00 EDT, 08/14/23 12:53:00 EDT, Capsule, [facility]/pharmacy #0693, Partial fill upon patient request if the prescription is for a... Start Date: 08/14/23 Stop Date: 08/28/23 Status: Ordered diclofenac 1% topical gel 1 [...] Stop 02/19/24 16:33:00 EDT, 07/24/23 16:33:00 EDT, [facility], 155, cm, 05/10/23 23:27:00 EDT, Height, 100, kg, 08/07/22 10:52:00 EDT, Dry Weight Start Date: 07/24/23 Stop Date: 02/19/24 Status: Ordered omeprazole 40 mg oral enteric coated capsule See Instructions, TAKE 1 CAPSULE BY MOUTH EVERY DAY BEFORE A MEAL, # 90 capsule, 1 Refills, Maintenance, 05/10/23 12:47:00 EDT, [facility], 156, cm, 05/08/23 13:27:00 EDT, Height, 100, kg, 08/07/22 10:52:00 EDT, Dry Weight Start Date: 05/10/23 Status: Ordered ProAir HFA 90 mcg/inh inhalation aerosol with adapter 2, puffs, Inhalation, Every 4 hours, PRN, # 8.5 Gm, Refills 0, Tot. Refills 0, Maintenance, 03/29/23 13:11:00 EDT, Aerosol, Route to Pharmacy Electronically, [id number], [facility]/pharmacy #1130, 156, cm, 03/29/23 12:30:00 EDT, Hei... Start Date: 03/29/23 Status: Ordered Ventolin HFA 108 mcg/inh inhalation aerosol with adapter 2 puffs, Inhalation, Every 6 hours, PRN NEEDED FOR WHEEZING/SHORTNESS OF BREATH, # 18 each, 0 Refills, Maintenance, 10/23/22 13:56:00 EST, [facility], 156, cm, 09/29/22 15:57:00 EDT, Height, 100, kg, 08/07/22 10:52:00 EDT, Dry Weight Start Date: 10/23/22 Status: Ordered verapamil 40 mg oral tablet 2 tablet, By Mouth, Daily, # 180 tablet, 1 Refills, Maintenance, 04/05/23 13:32:00 EDT, [facility], 156, cm, 03/29/23 12:30:00 EDT, Height, 100, [...] Severe obesity Confirmed Active Ureterolithiasis Confirmed Active Diagnosis Diagnosis Type Effective Dates Health Status Clinical Service Informant Cough Discharge Diagnosis 08/14/23 Acute bronchitis Discharge Diagnosis 08/14/23 Vital Signs Most recent to oldest [Reference Range]: 1 Height 155 cm (08/14/23 11:27 AM) Oxygen Saturation [94-100 %] 99 % (08/14/23 11:27 AM) Pulse Rate [55-90 bpm] 86 bpm (08/14/23 11:27 AM) Blood Pressure [90-138/55-84 mm Hg] 128/ 82mm Hg (08/14/23 11:27 AM) Respiratory Rate [16-30 br/min] 18 br/mi n (08/14/23 11:27 AM) Temperature [96.8-100.4 DegF] 98 DegF (08/14/23 11:27 AM) Mode of Delivery (Oxygen) Room air (08/14/23 11:27 AM) Blood pressure sites Arm, right (08/14/23 11:27 AM) Temperature Route Axillary (08/14/23 11:27 AM) Social History Social History Type Response Tobacco Other: Quit June 27. Sex Female Note * Alice Rai: PERFORM, SIGN, VERIFY Event Display: Patient Education/Instruction Authored Date: [id number] [facility] *[facility] Clinical Summary Name CHRISTIAN BROOKS Age 48 Years 1975 PCP Woody Boo MD PCP Visit Date 08/14/2023 09:56:00 Additional Instructions: Scheduled Appointments?? Future Appointments ?*[facility] [address],??[address] ?Phone:??--?Fax:??-- ?Appt. Date:??09/26/2023?3:45 PM ?Scheduled Provider:??Woody Boo MD Follow-Up Instructions ?? Diagnosis Cough, unspecified; Acute bronchitis, unspecified Medications: Please continue your medications until treatment is completed or stopped by your provider. Discuss any questions related to medications with your provider. New Medications [facility]/pharmacy #9800, [address] [place] [phone], [phone] Benzonatate (benzonatate 200 mg oral capsule) 1 capsule Oral 3 times a day as needed as needed for cough for 14 Days. Refills: 0. Next Dose: Medications to Continue Taking That Have Changed [facility]/pharmacy #0138, [address] [place] [phone], [phone] - Albuterol (albuterol 90 mcg/inh inhalation powder) 2 puff(s) Inhalation every 6 hours as needed. Refills: 0. Next Dose: - PredniSONE (predniSONE 20 mg oral tablet) 2 tab(s) Oral Daily for 5 Days. with food or milk. Refills: 0. Next Dose: These medications were not printed or sent to your pharmacy - Albuterol (albuterol CFC free 90 mcg/inh inhalation aerosol) 2 puff(s) Inhalation every 4 hours as needed Wheezing/Shortness of Breath for 30 Days. or cough. Refills: 0. Next Dose: - Albuterol (ProAir HFA 90 mcg/inh inhalation aerosol with adapter) 2 puff(s) Inhalation every 4 hours as needed Wheezing/Shortness of Breath. Refills: 0. Next Dose: - Albuterol (Ventolin HFA 108 mcg/inh inhalation aerosol with adapter) 2 puff(s) Inhalation every 6hours as needed NEEDED FOR WHEEZING/SHORTNESS OF BREATH. Refills: 0. Next Dose: Medications to Continue with No Changes These medications were not printed or sent to your pharmacy Diclofenac Topical (diclofenac 1% topical gel) 1 donato Topically 4 times a day as needed Pain , Mild.not to exceed 8 grams/day/single joint of upper extremities. Refills: 0. Next Dose: Fluconazole (Diflucan 150 mg oral tablet) 1 tab(s) Oral once. Refills: 0. Next Dose: Losartan (losartan 25 mg oral tablet) 2 tab(s) Oral Daily for 30 Days. Refills: 6. Next Dose: Omeprazole (omeprazole 40 mg oral enteric coated capsule) TAKE 1 CAPSULE BY MOUTH EVERY DAY BEFORE A MEAL. Refills: 1. Next Dose: Verapamil (verapamil 40 mg oral tablet) 2 tab(s) Oral Daily. Refills: 1. Next Dose: Allergy Info:?? Paxlovid; Mushrooms; Demerol; Vicodin; Tylox; Percocet; Zofran; Toradol; sulfa drugs; morphine; penicillin; erythromycin; codeine Medications Given This Visit Future Orders ?No future orders Vital Signs Height 155 cm Weight BMI Blood Pressure 128 mm Hg/82 mm Hg Temperature 98 DegF Pulse Rate 86 bpm Respiratory Rate 18 br/min 02 Sat Mode of Delivery 99 %/Room air You can now view a summary of your hospital visit from the comfort of your home through a free online portal called [employer]. [employer] is a website that allows you to securely view your medical information including discharge summary, medications and follow-up visits. ??You can alsosend a secure electronic message to your doctor???s office to request appointments, renew medications or just ask a question. You can enroll at [email or web address] or register during your next office visit. Disclaimer:?? The information provided is of a general nature and is intended to be used in conjunction with the recommendations and advice of your health care practitioner. ??Every effort has been made to ensure that the information provided is accurate and complete at the time it is provided to you however, as your needs change, or, as new ??information becomes available, different or additional instructions may be required. If you have questions, please consult with your primary care provider or pharmacist, as appropriate. ??This information is not intended to serve as substitution for assessment and evaluation by a qualified health care provider. If you do not have a primary care provider, you may find a [facility] provider by calling [facility] at [phone]. [facility], in keeping with [facility] guidance, no longer requires face masks for staff, patientsor visitors in most situations. Similar to time spent indoors at other locations, there is the chance that you were exposed to respiratory viruses during your time with us (such as flu or COVID-19).? If you develop symptoms concerning for a viral respiratory infection, please seek testing (and treatment if indicated) from your medical provider or home test kit. For information about the plan of care including goals and instructions for your diagnosis, please see the patient education orders section of this document. Patient Education Materials?? The content of this educational material or handout may have been modified, supplemented, or adapted from its original content and format to support your individualized medical care. Patient Care team information Care Team Personnel Name: Ana Diaz RN Position: [facility] RN Member Role: Primary Care Nurse Name: Rita Mccall RN Position: [facility] RN Member Role: Primary Care Nurse Name: Woody Boo MD Position: [facility] Physician - Primary Care Member Role: PCP Address: Address: [address] [place] [address] [address] [place], [place] [address] Name: Shannon Dai RN Position: S RN Member Role: Primary Care Nurse Name: Mady Simental RN Position: S RN Member Role: Primary Care Nurse Name: Chayito Reeves RN Position: [facility] [place] Nurse Member Role: Primary Care Nurse Care Team Related Persons Name: MICHELLE BROOKS Address: home [address] [address] Name: STEPHEN BROOKS Address: home [address] [place] [address] Name: PATRICIA BERNARDO Address: home [address] [place] [address]
--- OUTSIDE RECORDS SUMMARY | 2024-09-08 01:09 | XMS_ITS | Continuity of Care Document ---
Author Organization [facility] Address [address] [place] [address]- Care Team Providers Care Wreath Machine Tender Name Role Phone Ema CORTEZ, Woody Primary Care Physician Encounter [facility] Date(s): 06/08/21 - 07/08/21 [facility] [address] [place] [address]- Allergies, Adverse Reactions, Alerts Substance Reaction Severity [...] Refills, Soft Stop, 06/20/21 12:02:00 EDT, Tablet, [facility]/pharmacy #1130, Partial fill upon patient request if the prescription is for a schedule II opioid... Start Date: 06/20/21 Status: Ordered losartan 25 mg oral tablet 1 tablet = 25 mg, By Mouth, Daily, # 30 tablet, 5 Refills, Maintenance, 01/31/21 18:36:00 EST, Tablet, [facility]/pharmacy #1130, 157.2, cm, 01/14/21 9:06:00 EST, Height, 97.8, kg, 12/26/19 13:26:00 EST, Dry Weight Start Date: 01/31/21 Status: Ordered omeprazole 40 mg oral enteric coated capsule See Instructions, TAKE 1 CAPSULE EVERY DAY BEFORE A MEAL FOR 30 DAYS, # 30 capsule, 2 Refills, Maintenance, [facility], 155, cm, 06/07/21 12:07:00 EDT, Height, 100, [...]
--- OUTSIDE RECORDS SUMMARY | 2024-09-08 01:09 | XMS_ITS | Continuity of Care Document ---
Author Organization [facility] Address [address] [place] [address]- Care Team Providers Care Second Grade Teacher Name Role Phone Woody Boo MD Primary Care Physician [place] [facility] [place] 07[place]/21 [facility] [address] [place] [address]- Attending Physician: Woody Boo MD Allergies, Adverse Reactions, [...] Refills, Soft Stop, 06/20/21 12:02:00 EDT, Tablet, [facility]/pharmacy #1130, Partial fill upon patient request if the prescription is for a schedule II opioid... Start Date: 06/20/21 Status: Ordered losartan 25 mg oral tablet 1 tablet = 25 mg, By Mouth, Daily, # 30 tablet, 5 Refills, Maintenance, 01/31/21 18:36:00 EST, Tablet, [facility]/pharmacy #1130, 157.2, cm, 01/14/21 9:06:00 EST, Height, 97.8, kg, 12/26/19 13:26:00 EST, Dry Weight Start Date: 01/31/21 Status: Ordered omeprazole 40 mg oral enteric coated capsule See Instructions, TAKE 1 CAPSULE EVERY DAY BEFORE A MEAL FOR 30 DAYS, # 30 capsule, 2 Refills, Maintenance, [facility], 155, cm, 06/07/21 12:07:00 EDT, Height, 100, [...]
--- OUTSIDE RECORDS SUMMARY | 2024-09-08 01:09 | XMS_ITS | Continuity of Care Document ---
Author Organization [facility] Address [address] [place] [address]- Care Team Providers Care V/Stol Landing Signal Officer Name Role Phone Ema CORTEZ, Woody Primary Care Physician [place] [facility] [place] 10/26/23 - 11/25/23 [facility] [address] [place] [address]- Attending Physician: Admtr, Ar8 Admitting Physician: Admtr, Ar8 Referring Physician: Admtr, [...] 0 Refills, Maintenance, 08/27/22 16:44:00 EDT, Gel, [facility]/pharmacy #0240, Partial fill upon patient request if the prescript... Start Date: 08/27/22 Status: Ordered Flovent HFA 110 mcg/inh inhalation aerosol 0 Refills, Maintenance, 09/26/23 16:32:00 EDT, Partial fill upon patient request if the prescription is for a schedule II opioid drug. Start Date: 09/26/23 Status: Ordered losartan 50 mg oral tablet 50 mg, 1, tablet, By Mouth, Daily, # 90 tablet, Refills 3, Tot. Refills 3, Maintenance, 09/26/23 16:31:00 EDT, Route to Pharmacy Electronically, [facility]/pharmacy #4697, Partial fill upon patient request if the prescription is for a schedule II opioid drug... Start Date: 09/26/23 Status: Ordered omeprazole 40 mg oral enteric coated capsule See Instructions, TAKE 1 CAPSULE BY MOUTH EVERY DAY BEFORE A MEAL, # 90 capsule, 0 Refills, Maintenance, 10/19/23 6:11:00 EST, [facility], 155, cm, 09/26/23 15:55:00 EDT, Height, 100, kg, 08/07/22 10:52:00 EDT, Dry Weight Start Date: 10/19/23 Status: Ordered Ventolin HFA 108 mcg/inh inhalation aerosol with adapter 2 puffs, Inhalation, Every 6 hours, PRN NEEDED FOR WHEEZING/SHORTNESS OF BREATH, # 18 each, 0 Refills, Maintenance, 10/23/22 13:56:00 EST, [facility], 156, cm, 09/29/22 15:57:00 EDT, Height, 100, kg, 08/07/22 10:52:00 EDT, Dry Weight Start Date: 10/23/22 Status: Ordered verapamil 80 mg oral tablet 1 tablet = 80 mg, By Mouth, Daily, # 90 tablet, 3 Refills, Maintenance, 09/26/23 16:31:00 EDT, Tablet, [facility]/pharmacy #0693, Partial fill upon patient request if the prescription is for a schedule II opioid drug., 155, cm, 09/26/23 15:55:00 EDT, Height,... Start Date: 09/26/23 Stop Date: 09/20/24 Status: Ordered Problem List Condition Confirmation Course [...] Tobacco Other: Quit June 27. Sex Female Hospital Consult note * Event Display: Inpatient Consult Note, Non- Authored Date: Patient Care team information Care Team Personnel Name: Ana Diaz RN Position: S RN Member Role: Primary Care Nurse Name: Rita Mccall RN Position: S RN Member Role: Primary Care Nurse Name: Woody Boo MD Position: S Physician - Primary Care Member Role: PCP Address: Address: [address] [place] [address] [address] [place] [address]- [place] Name: Shannon Dai RN Position: [facility] RN Member Role: Primary Care Nurse Name: Mady Simental RN Position: S RN Member Role: Primary Care Nurse Name: Chayito Reeves RN Position: [facility] Nurse Member Role: Primary Care Nurse Care Team Related Persons Name: MICHELLE BROOKS Address: home [address] [address] Name: CECILIA STEPHEN Address: home [address] [place] [address] Name: PATRICIA BERNARDO Address: home [address] [place] [address]
--- OUTSIDE RECORDS SUMMARY | 2024-09-08 01:09 | XMS_ITS | Continuity of Care Document ---
Author Organization [facility] Address [address] [place] [address]- Care Team Providers Care End Matcher Name Role Phone Woody Boo MD Primary Care Physician Encounter [facility] Date(s): 08/29/22 - 09/05/22 [facility] [address] [place] [id number]- Encounter Diagnosis Hyperlipidemia(Discharge Diagnosis) - 08/29/22 Hypertension(Discharge Diagnosis) - 08/29/22 Hemiplegic migraine(Discharge Diagnosis) - 08/29/22 Atypical nevi(Discharge Diagnosis) - 08/29/22 Medullary sponge kidney(Discharge Diagnosis) - 08/29/22 Severe obesity(Discharge Diagnosis) - 08/29/22 Annual physical exam(Discharge Diagnosis) - 08/29/22 GERD (gastroesophageal reflux disease)(Discharge Diagnosis) - 08/29/22 Attending Physician: Woody Boo MD Allergies, Adverse [...] 30 tablet, 5 Refills, 08/21/22 10:34:00 EDT, [facility]/pharmacy #[id number], 156, cm, 08/09/22 8:36:00 EDT, Height, 100, kg, 08/07/22 10:52:00 EDT, Dry Weight Start Date: 08/21/22 Status: Ordered omeprazole 40 mg oral enteric coated capsule See Instructions, TAKE 1 CAPSULE EVERY DAY BEFORE A MEAL FOR 30 DAYS, # 30 capsule, 2 Refills, Maintenance, 08/06/22 10:11:00 EDT, [id number], 155, cm, 07/14/22 9:07:00 EDT, Height, 100, kg, 06/07/21 2:39:00 EDT, Dry Weight Start Date: 08/06/22 Status: Ordered verapamil 40 mg oral tablet 2 tablet, By Mouth, Daily, # 60 tablet, 2 Refills, [id number], 155, cm, 03/08/22 11:00:00 EDT,Height, 100, kg, [...] Effective Dates Health Status Clinical Service Informant Hyperlipidemia Discharge Diagnosis 08/29/22 Hypertension Discharge Diagnosis 08/29/22 Hemiplegic migraine Discharge Diagnosis 08/29/22 Atypical nevi Discharge Diagnosis 08/29/22 Medullary sponge kidney Discharge Diagnosis 08/29/22 Severe obesity Discharge Diagnosis 08/29/22 Annual physical exam Discharge Diagnosis 08/29/22 GERD (gastroesophageal reflux disease) Discharge Diagnosis 08/29/22 Procedures Procedure Date Related Diagnosis Body Site Status Hysterectomy Completed Vital Signs Most recent to oldest [Reference Range]: 1 Height 156 cm (08/29/22 8:57 AM) Weight 102.5 kg (08/29/22 8:57 AM) Oxygen Saturation [94-100 %] 100 % (08/29/22 8:57 AM) Pulse Rate [55-90 bpm] 94 bpm *H* (08/29/22 8:57 AM) Body Mass Index [18.5-24.99 kg/m2] 42.12 kg/m2 *>HHI* (08/29/22 8:57 AM) Blood Pressure [90-138/55-84 mm Hg] 123/ 80mm Hg (08/29/22 8:57 AM) Temperature [96.8-100.4 DegF] 98.8 DegF (08/29/22 8:57 AM) Mode of Delivery (Oxygen) Room air (08/29/22 8:57 AM) Blood pressure sites Arm, left (08/29/22 8:57 AM) Temperature Route Temporal (08/29/22 8:57 AM) Weight Obtained Via Standing scale (08/29/22 8:57 AM) Social History Social History Type Response Tobacco Other: Quit June 27. Sex Female Patient Care team information Personnel Name: Ema CORTEZ, [facility] Address: Address: [address] [place], [place] [address]
--- OUTSIDE RECORDS SUMMARY | 2024-09-08 01:09 | XMS_ITS | Continuity of Care Document ---
Author Organization [facility] Address [address] [place] [address]- Care Team Providers Care Blood Bank Attendant Name Role Phone Woody Boo MD Primary Care Physician ( [phone] [facility] Date(s): 09/22/21 - 09/22/[address] [address]- Discharge Disposition: A-D/C Home Attending Physician: Ashley Escudero MD Admitting Physician: Ashley Escudero MD Referring Physician: Not on Staff, Referring MD Allergies, Adverse Reactions, Alerts Substance Reaction Severity Status codeine facial swelling, hives, trouble breathing Active Zofran facial swelling, difficulty breathing Active Mushrooms facial swelling, difficulty breathing Active erythromycin facial swelling, dif ficulty breathing swell Active morphine facial swelling, dif ficulty breathing swell Active penicillin facial swelling, dif ficulty breathing swell Active sulfa drugs facial swelling, dif ficulty breathing swell Active Toradol facial swelling, difficulty breathing Active Vicodin facial swelling, difficulty breathing Active Percocet facial swelling, difficulty breathing Active Tylox facial swelling, difficulty breathing Active Demerol difficulty breathing , full facial swelling swell Active Immunizations Given and Recorded Vaccine Date [...] Refills, Soft Stop, 06/20/21 12:02:00 EDT, Tablet, [facility]/pharmacy #[id number], Partial fill upon patient request if the prescription is for a schedule II opioid... Start Date: 06/20/21 Status: Ordered losartan 25 mg oral tablet 1 tablet, By Mouth, Daily, # 30 tablet, 5 Refills, [facility], 155, cm, 06/22/21 15:06:00 EDT,Height, 100, kg, 06/07/21 2:39:00 EDT, Dry Weight Start Date: 08/31/21 Status: Ordered omeprazole 40 mg oral enteric coated capsule See Instructions, TAKE 1 CAPSULE EVERY DAY BEFORE A MEAL FOR 30 DAYS, # 30 capsule, 2 Refills, [facility], 155, cm, 06/22/21 15:06:00 EDT, Height, 100, kg, 06/07/21 2:39:00 EDT, Dry Weight Start Date: 09/12/21 Status: Ordered SUMAtriptan 50 mg oral tablet 1 tablet = 50 mg, By Mouth, Once, PRN for migraine headache, take at onset of bad migraine. no refill in under 30 days, use sparingly, # 12 tablet, 5 Refills, Soft Stop, 09/16/21 14:20:00 EDT, Tablet, [id number], Partial fill upon patient req... Start Date: 09/16/21 Status: Ordered topiramate 50 mg oral tablet 1 tablet = 50 mg, By Mouth, Daily at bedtime, Week 1 take 1/2 tab, then 1 tab at bedtime, # 30 tablet, 6 Refills, Maintenance, 09/16/21 14:18:00 EDT, Tablet, [facility]/pharmacy #[id number], Partial fill upon patient request if the prescription is for a schedule I... Start Date: 09/16/21 Stop Date: 04/14/22 Status: Ordered valacyclovir 1 gm oral tablet 1 tablet = 1 Gm, By Mouth, 2 times a day, for 7 days, # 14 tablet, 1 Refills, Acute 09/26/21 15:15:00 EDT, 09/12/21 15:15:00 EDT, Tablet, [id number], Partial fill upon patient request, 155, cm, 06/22/21 15:06:00 EDT, Height, 100, kg, 06/07/21... 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 Hemiplegic migraine(Confirmed) Active Hyperlipidemia(Confirmed) Active Hypertension(Confirmed) Active Medullary sponge kidney(Confirmed) Active Obesity(Confirmed) Active Ureterolithiasis(Confirmed) Active Results Radiology Reports * Exam Date Time Procedure Performing Provider Status 09/22/21 12:02 PM Chest 2 Views Frontal and Lat Jenifer Chris; Auth (Verified) Notes: (Chest 2 Views Frontal and Lat) Reason For Exam: Shortness of Breath RESULT: Chest 2 Views Frontal and Lat Chest 2 Views Frontal and Lat Hx of Present Illness: pt states started Topamax on Sunday has been feeling heaviness since thenand having blurred vision . Stopped the new med on Sunday. Called PCP and told to come to ED for further eval. States gait is off ; Reason: Shortness of Breath; Clinical Question(s): Pneumonia COMPARISON: 08/25/2018 FINDINGS: LINES AND TUBES: None. LUNGS AND PLEURA: Clear lungs. Normal pulmonary vascularity. No pleural effusion. No pneumothorax. HEART, MEDIASTINUM AND ESME: Heart is normal in size. Normal upper mediastinal and hilar contour. BONES AND SOFT TISSUES: No acute abnormality. Calcific tendinitis of the right rotator cuff. IMPRESSION: No acute abnormality. WSN: [id number] Ordering Physician: Claribel Hutchins Dictated By: Michael Carroll MD Dictated Date/Time: 09/22/21 12:27 p Reviewed By: Michael Carroll MD Signed By: Michael Carroll MD Signed Date/Time: 09/22/21 12:27 pm Transcribed By: STEPHANIE Transcribed Date/Time: 09/22/21 12:24 pm Vital Signs Most recent to oldest [Reference Range]: 1 2 Oxygen Saturation [94-100 %] 98 % (09/22/21 12:35 PM) 100 % (09/22/21 10:07 AM) Pulse Rate [55-90 bpm] 96 bpm *H* (09/22/21 12:35 PM) 110 bpm *H* (09/22/21 10:07 AM) Blood Pressure [90-138/55-84 mm Hg] 140/ 88mm Hg *H* (09/22/21 12:35 PM) 150/97mm Hg *H* (09/22/21 10:00 AM) Respiratory Rate [16-30 br/min] 18 br/mi n (09/22/21 12:35 PM) 18 br/min (09/22/21 10:00 AM) Temperature [96.8-100.4 DegF] 98.8 DegF (09/22/21 10:00 AM) Mode of Delivery (Oxygen) Room air (09/22/21 12:35 PM) Room air (09/22/21 10:07 AM) Blood pressure sites Arm, left (09/22/21 12:35 PM) Arm, right (09/22/21 10:00 AM) Temperature Route Oral (09/22/21 10:00 AM) Social History Social History Type Response Smoking Status Current some day smo ker; Other: smoking only a few cigs a week; entered on: 02/14/16 Sex Female
--- OUTSIDE RECORDS SUMMARY | 2024-09-08 01:09 | XMS_ITS | Continuity of Care Document ---
Author Organization [facility] Address [address] [place] [id number]- Care Team Providers Care Door Cutter Name Role Phone Ema CORTEZ, Woody Primary Care Physician Encounter [facility] Date(s): 08/09/22 - 08/16/22 [facility] [address] [place] [address]- Encounter Diagnosis Hypertension(Discharge Diagnosis) - 08/09/22 Breast pain, left(Discharge Diagnosis) - 08/09/22 Left upper quadrant pain(Discharge Diagnosis) - 08/09/22 Chest pain(Discharge Diagnosis) - 08/09/22 Attending Physician: Silverio Robert MD Allergies, Adverse Reactions, Alerts Substance Reaction [...] Active Vicodin facial swelling, difficulty breathing Active Mushrooms facial swelling, difficulty breathing Active Demerol difficulty [...] PATIENT. Medications losartan 25 mg oral tablet 2 tablet = 50 mg, By Mouth, Daily, # 30 tablet, 5 Refills, 03/09/22 15:48:00 EDT, [facility]/pharmacy #[id number], 155, cm, 03/08/22 11:00:00 EDT, Height, 100, kg, 06/07/21 2:39:00 EDT, Dry Weight Start Date: 03/09/22 Status: Ordered omeprazole 40 mg oral enteric coated capsule See Instructions, TAKE 1 CAPSULE EVERY DAY BEFORE A MEAL FOR 30 DAYS, # 30 capsule, 2 Refills, Maintenance, 08/06/22 10:11:00 EDT, [facility], 155, cm, 07/14/22 9:07:00 EDT, Height, 100, kg, 06/07/21 2:39:00 EDT, Dry Weight Start Date: 08/06/22 Status: Ordered verapamil 40 mg oral tablet 2 tablet, By Mouth, Daily, # 60 tablet, 2 Refills, [facility], 155, cm, 03/08/22 11:00:00 EDT,Height, 100, kg, 06/07/21 2:39:00 EDT, Dry Weight Start Date: 07/04/22 Status: Ordered Problem List Condition Effective Dates Status Health Status Inform ant Atypical nevi(Confirmed) Active 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 Hemiplegic migraine(Confirmed) Active Hyperlipidemia(Confirmed) Active Hypertension(Confirmed) Active Medullary sponge kidney(Confirmed) Active Obesity(Confirmed) Active Severe obesity(Confirmed) Active Ureterolithiasis(Confirmed) Active Diagnosis Diagnosis Type Effective Dates Health Status Clinical Service Informant Hypertension Discharge Diagnosis 08/09/22 Chest pain Discharge Diagnosis 08/09/22 Breast pain, left Discharge Diagnosis 08/09/22 Left upper quadrant pain Discharge Diagnosis 08/09/22 Vital Signs Most recent to oldest [Reference Range]: 1 2 Height 156 cm (08/09/22 8:36 AM) 156 cm (08/09/22 8:31 AM) Weight 100.8 kg (08/09/22 8:31 AM) Oxygen Saturation [94-100 %] 96 % (08/09/22 8:31 AM) Pulse Rate [55-90 bpm] 103 bpm *H* (08/09/22 8:31 AM) Body Mass Index [18.5-24.99] 41.42 *>HHI* (08/09/22 8:31 AM) Blood Pressure [90-138/55-84 mm Hg] 116/ 79mm Hg (08/09/22 8:36 AM) 144/91mm Hg *H* (08/09/22 8:31 AM) Mode of Delivery (Oxygen) Room air (08/09/22 8:31 AM) Blood pressure sites Arm, left (08/09/22 8:36 AM) Arm, left (08/09/22 8:31 AM) Weight Obtained Via Standing scale (08/09/22 8:31 AM) Social History Social History Type Response Tobacco Other: Quit June 27. Sex Female Care Team Personnel Name: Ema CORTEZ, [facility] Address: [address] [place] [address] [address] [place], [place] [address]
--- OUTSIDE RECORDS SUMMARY | 2024-09-08 01:09 | XMS_ITS | Continuity of Care Document ---
Author Organization [facility] Address [address] [place] [id number]- Care Team Providers Care Pulpwood Cutter Name Role Phone Ema CORTEZ, Woody Primary Care Physician Encounter [facility] Date(s): 04/19/21 - 04/21/[address] [address] Discharge Disposition: A-D/C Home Attending Physician: Silverio Salas MD Admitting Physician: Trevon CORTEZ, Ishan Ugalde Referring Physician: Not on Staff, Referring MD [...] 1Admin Note: VIS GIVEN TO PATIENT. Medications acetaminophen 325 mg oral tablet 650 mg, 2, tablet, By Mouth, Every 4 hours, PRN, for 14 days, # 50 tablet, Refills 0, Tot. Refills 0, Acute 04/29/21 18:50:00 EDT, Pain , Moderate, 04/15/21 18:50:00 EDT, Route to Pharmacy Electronically, [facility]/pharmacy #[id number], Partial fill upon patient... Start Date: 04/15/21 Stop Date: 04/29/21 Status: Ordered acetaminophen 325 mg oral tablet 650 mg, Tablet, By Mouth, Every 4 hours, PRN for Pain , Mild, Routine, 04/19/21 17:59:00 EDT Start Date: 04/19/21 Stop Date: 04/21/21 Status: Discontinued ibuprofen 600 mg oral tablet 600 mg, 1, tablet, By Mouth, Every 6 hours, PRN, for 7 days, # 40 tablet, Refills 0, Tot. Refills 0, Acute 04/22/21 18:50:00 EDT, Pain , Moderate, 04/15/21 18:50:00 EDT, Route to Pharmacy Electronically, [facility]/pharmacy #[id number], Partial fill upon patient r... Start Date: 04/15/21 Stop Date: 04/22/21 Status: Ordered losartan 25 mg oral tablet 25 mg, Tablet, By Mouth, 04/21/21 9:00:00 EDT Start Date: 04/21/21 Stop Date: 04/21/21 Status: Completed losartan 25 mg oral tablet 1 tablet = 25 mg, By Mouth, Daily, # 30 tablet, 5 Refills, Maintenance, 01/31/21 18:36:00 EST, Tablet, [id number], 157.2, cm, 01/14/21 9:06:00 EST, Height, 97.8, kg, 12/26/19 13:26:00 EST, Dry Weight Start Date: 01/31/21 Status: Ordered Macrobid macrocrystals-monohydrate 100 mg oral capsule 1 capsule = 100 mg, By Mouth, 2 times a day, for 3 days, # 6 capsule, 0 Refills, Acute 04/24/21 8:28:00 EDT, 04/21/21 8:28:00 EDT, Capsule, [facility]/pharmacy #[id number], Partial fill upon patient request if the prescription is for a schedule II opioid drug., 15... Start Date: 04/21/21 Stop Date: 04/24/21 Status: Ordered omeprazole 40 mg oral enteric coated capsule 1 capsule = 40 mg, By Mouth, Daily, before a meal, # 30 capsule, 5 Refills, Maintenance, 12/14/20 11:15:00 EST, EC Capsule, [facility]/pharmacy #[id number], Partial fill upon patient request if the prescription is for a schedule II opioid drug., 157.2, cm, ... Start Date: 12/14/20 Stop Date: 06/12/21 Status: Ordered Reglan 10 mg oral tablet 1 tablet = 10 mg, By Mouth, Every 6 hours, PRN Nausea & Vomiting, for 7 days, # 20 tablet, 0 Refills, Acute 04/22/21 18:48:00 EDT, 04/15/21 18:48:00 EDT, Tablet, [facility]/pharmacy #[id number], Partial fill upon patient request if the prescription is for a schedu... 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 Results Radiology Reports * Exam Date Time Procedure Performing Provider Status 04/20/21 5:29 PM C-Arm < 1 Hour Karen Man; Janak (Verified) Notes: (C-Arm < 1 Hour) Reason For Exam: right stone removal RESULT: C-Arm < 1 Hour Urethrocystography Retrograde, C-Arm < 1 Hour INDICATION: Reason: right stone removal; Special Instructions: TT 27min, FT 14sec, 4.6739mGy COMPARISONS: CT abdomen and pelvis, 04/15/2021 TECHNIQUE: Fluoroscopy support was provided. There was no radiologist in attendance. Fluoroscopy time: 14.6 seconds Technologist time: 27 minutes Exposure: 4.67 mGy 2 fluoroscopic images and dose summary were saved. FINDINGS: Fluoroscopic images were obtained during retrograde urethrocystography. Initial image demonstrates contrast injection into the right ureter, with filling defect measuring approximately 8 mm in the distal ureter, corresponding to the obstructing stone is seen on CT. Subsequent image demonstrates passage of guidewire through the right ureter, coiling in the expected region of the renal pelvis. Overlying surgical clips incidentally noted in the right upper quadrant are compatible with prior cholecystectomy. See procedural note for further details. IMPRESSION: See above. WSN: [id number] Ordering Physician: León Dillard Dictated By: Rosaura Aguiar MD Dictated Date/Time: 04/20/21 8:01 pm Reviewed By: Rosaura Aguiar MD Signed By: Rosaura Aguiar MD Signed Date/Time: 04/20/21 8:01 pm Transcribed By: STEPHANIE Transcribed Date/Time: 04/20/21 7:58 pm * Exam Date Time Procedure Performing Provider Status 04/20/21 5:29 PM Urethrocystography Retrograde Karen Man; Janak (Verified) Notes: (Urethrocystography Retrograde) Reason For Exam: right stone removal RESULT: Urethrocystography Retrograde Urethrocystography Retrograde, C-Arm < 1 Hour INDICATION: Reason: right stone removal; Special Instructions: TT 27min, FT 14sec, 4.6739mGy COMPARISONS: CT abdomen and pelvis, 04/15/2021 TECHNIQUE: Fluoroscopy support was provided. There was no radiologist in attendance. Fluoroscopy time: 14.6 seconds Technologist time: 27 minutes Exposure: 4.67 mGy 2 fluoroscopic images and dose summary were saved. FINDINGS: Fluoroscopic images were obtained during retrograde urethrocystography. Initial image demonstrates contrast injection into the right ureter, with filling defect measuring approximately 8 mm in the distal ureter, corresponding to the obstructing stone is seen on CT. Subsequent image demonstrates passage of guidewire through the right ureter, coiling in the expected region of the renal pelvis. Overlying surgical clips incidentally noted in the right upper quadrant are compatible with prior cholecystectomy. See procedural note for further details. IMPRESSION: See above. WSN: [id number] Ordering Physician: León Dillard Dictated By: Rosaura Aguiar MD Dictated Date/Time: 04/20/21 8:01 pm Reviewed By: Rosaura Aguiar MD Signed By: Rosaura Aguiar MD Signed Date/Time: 04/20/21 8:01 pm Transcribed By: STEPHANIE Transcribed Date/Time: 04/20/21 7:58 pm Vital Signs Most recent to oldest [Reference Range]: 1 2 3 Weight 100.80 kg (04/20/21 3:17 PM) 100.80 kg (04/19/21 3:31 PM) Oxygen Saturation [94-100 %] 97 % (04/21/21 8:07 AM) 94 % (04/21/21 3:40 AM) 93 % *L* (04/20/21 11:39 PM) Pulse Rate [55-90 bpm] 74 bpm (04/21/21 8:07 AM) 72 bpm (04/21/21 8:07 AM) 81 bpm (04/21/21 3:40 AM) Blood Pressure [90-138/55-84 mm Hg] 128/67mm Hg (04/21/21 8:07 AM) 128/67mm Hg (04/21/21 8:07 AM) 128/67mm Hg (04/21/21 8:07 AM) Respiratory Rate [16-30 br/min] 18 br/min (04/21/21 8:07 AM) 18 br/min (04/21/21 5:17 AM) 18 br/min (04/21/21 3:40 AM) Temperature [96.8-100.4 DegF] 97.6 DegF (04/21/21 8:07 AM) 98.3 DegF (04/21/21 3:40 AM) 98.7 DegF (04/20/21 11:39 PM) Liters per Minute 5 L/min (04/20/21 5:30 PM) Mode of Delivery (Oxygen) Room air (04/21/21 8:07 AM) Room air (04/21/21 3:40 AM) Room air (04/20/21 11:39 PM) Blood pressure sites Arm, left (04/21/21 8:07 AM) Arm, left (04/21/21 3:40 AM) Arm, left (04/20/21 11:39 PM) Temperature Route Oral (04/21/21 8:07 AM) Oral (04/21/21 3:40 AM) Oral (04/20/21 11:39 PM) Weight Obtained Via Standing scale (04/19/21 3:31 PM) Social History Social History Type Response Smoking Status Current some day smo ker; Other: smoking only a few cigs a week; entered on: 02/14/16 Sex Female
--- OUTSIDE RECORDS SUMMARY | 2024-09-08 01:09 | XMS_ITS | Continuity of Care Document ---
Author Organization [facility] Address [address] [place] [address]- Care Team Providers Care Home Care Coordinator Name Role Phone Ema CORTEZ, Woody Primary Care Physician Encounter [facility] Date(s): 01/08/23 - 02/07/23 [facility] [address] [place] [id number]- Allergies, Adverse Reactions, Alerts Substance Reaction Severity Status codeine facial swelling, hives, trouble breathing Active Percocet facial swelling, difficulty breathing Active Tylox facial swelling, difficulty breathing Active Demerol difficulty breathing , full facial swelling swell Active Paxlovid rash Active erythromycin facial swelling, dif ficulty breathing swell Active morphine facial swelling, dif ficulty breathing swell Active Mushrooms facial swelling, difficulty breathing Active penicillin facial swelling, dif ficulty breathing swell Active sulfa drugs facial swelling, dif ficulty breathing swell Active Toradol facial swelling, difficulty breathing Active Vicodin facial swelling, difficulty breathing Active Zofran facial swelling, difficulty breathing Active Immunizations Given [...] 0 Refills, Maintenance, 08/27/22 16:44:00 EDT, Gel, [facility]/pharmacy #[id number], Partial fill [...] tablet, 0 Refills, Maintenance, 09/29/22 16:41:00 EDT, [facility]/pharmacy #[id number], Partial fill upon patient request if the prescription is for... Start Date: 09/29/22 Status: Ordered Ventolin HFA 108 mcg/inh inhalation aerosol with adapter 2 puffs, Inhalation, Every 6 hours, PRN NEEDED FOR WHEEZING/SHORTNESS OF BREATH, # 18 each, 0 Refills, Maintenance, 10/23/22 13:56:00 EST, [facility], 156, cm, 09/29/22 15:57:00 EDT, Height, 100, kg, 08/07/22 10:52:00 EDT, Dry Weight Start Date: 10/23/22 Status: Ordered verapamil 40 mg oral tablet 2 tablet, By Mouth, Daily, # 60 tablet, 5 Refills, Maintenance, 10/06/22 13:05:00 EST, [facility]1475, 156, cm, 09/29/22 15:57:00 EDT, Height, 100, [...] Care Nurse Name: Woody Boo MD Position: [facility] Primary Care Physician Member Role: PCP Address: Address: [address] [place] [address] 3rd Floor [facility] [place] [address]- Name: Shannon Dai RN Position: S RN Member Role: Primary Care Nurse Name: Mady Simental RN Position: S RN Member Role: Primary Care Nurse Name: Chayito Reeves RN Position: [facility] AMB Nurse Member Role: Primary Care Nurse Care Team Related Persons Name: MICHELLE BROOKS Address: home [address] [address] Name: STEPHEN BROOKS Address: home [address] [place] [address] Name: PATRICIA BERNARDO Address: home [address] [place] [address]
--- OUTSIDE RECORDS SUMMARY | 2024-09-08 01:09 | XMS_ITS | Continuity of Care Document ---
Author Organization [facility] Address [address] [place] [address]- Care Team Providers Care Oil Pipe Inspector Name Role Phone Woody Boo MD Primary Care Physician Encounter [facility] Date(s): 12/26/19 - 01/28/20 [facility] [address] [place] [address]- [facility] Attending Physician: Clemencia Og MD Admitting [...] 10/04/19 8:48:53 EST, Route to Pharmacy Electronically, [id number], [facility]/pharmacy #1130 Start Date: 10/04/19 Stop Date: 10/18/19 Status: Ordered -Gastroview 66%-10% oral and rectal solution See Instructions, follow instructions provided, # 1 each, 0 Refills, Maintenance, 12/26/19 13:45:00EST, [facility], follow instructions provided, 157.2, cm, 12/26/19 13:26:00 EST, Height, 97.8, kg, 12/26/19 13:26:00 EST, Dry Weight Start Date: 12/26/19 Status: Ordered omeprazole 40 mg oral enteric coated capsule 1 capsule = 40 mg, By Mouth, Daily, # 90 capsule, 10 Refills, Maintenance, 12/05/19 9:09:00 EST, ECCapsule, [facility]/pharmacy #1130, 157.2, cm, 12/05/19 8:46:00 EST, Height, [...]
--- OUTSIDE RECORDS SUMMARY | 2024-09-08 01:09 | XMS_ITS | Continuity of Care Document ---
Author Organization [facility] Adult Address [address] [place] [address]- Care Team Providers Care Beater Room Supervisor Name Role Phone Ema CORTEZ, [facility] Primary Care Physician [facility]counter [facility] Date(s): 12/02/20 - 01/01/21 [facility] Adult [address] [place] [address]- Allergies, Adverse Reactions, Alerts Substance Reaction Severity [...] mg, By Mouth, Daily, # 30 tablet, 4 Refills, Maintenance, 09/13/20 13:41:00 EDT, Tablet, [facility], 157.2, cm, 09/13/20 12:59:00 EDT, Height, 97.8, kg, 12/26/19 13:26:00 EST, Dry Weight Start Date: 09/13/20 Status: Ordered omeprazole 40 mg oral enteric [...] mg, By Mouth, Daily, # 60 tablet, 2 Refills, Maintenance, 12/08/20 7:44:00 EST, [facility], 157.2, cm, 09/13/20 13:42:00 EDT, Height, 97.8, kg, 12/26/19 13:26:00 EST, Dry Weight Start Date: 12/08/20 Stop Date: 03/08/21 Status: Ordered Problem List Condition Effective Dates [...]
--- OUTSIDE RECORDS SUMMARY | 2024-09-08 01:10 | XMS_ITS | Continuity of Care Document ---
Author Organization [facility] Address [address] [place] [address]- Care Team Providers Care Impregnator Operator Name Role Phone Woody Boo MD Primary Care Physician Encounter [facility] Date(s): 10/17/23 - 11/16/23 [facility] [address] [place], [place] [address] Attending Physician: Admtr, Ar8 Admitting Physician: Admtr, [...] 0 Refills, Maintenance, 08/27/22 16:44:00 EDT, Gel, [facility]/pharmacy #6958, Partial fill upon patient request if the [...] 09/26/23 16:31:00 EDT, Route to Pharmacy Electronically, [facility]/pharmacy #[id number], Partial fill upon patient request if the prescription is for a schedule II opioid drug... Start Date: 09/26/23 Status: Ordered omeprazole 40 mg oral enteric coated capsule See Instructions, TAKE 1 CAPSULE BY MOUTH EVERY DAY BEFORE A MEAL, # 90 capsule, 0 Refills, Maintenance, 10/19/23 6:11:00 EST, [facility] STORE 58861, 155, cm, 09/26/23 15:55:00 EDT, Height, 100, kg, 08/07/22 10:52:00 EDT, Dry Weight Start Date: 10/19/23 Status: Ordered Ventolin HFA 108 mcg/inh inhalation aerosol with adapter 2 puffs, Inhalation, Every 6 hours, PRN NEEDED FOR WHEEZING/SHORTNESS OF BREATH, # 18 each, 0 Refills, Maintenance, 10/23/22 13:56:00 EST, Departing STORE 52953, 156, cm, 09/29/22 15:57:00 EDT, Height, 100, kg, 08/07/22 10:52:00 EDT, Dry Weight Start Date: 10/23/22 Status: Ordered verapamil 80 mg oral tablet 1 tablet = 80 mg, By Mouth, Daily, # 90 tablet, 3 Refills, Maintenance, 09/26/23 16:31:00 EDT, Tablet, [facility]/pharmacy #[id number], Partial fill upon patient request [...] Care Nurse Name: Woody Boo MD Position: [facility] Physician - Primary Care Member Role: PCP Address: Address: [address] [place] [address] [address]rd [place] [address]- Name: Shannon Dai RN Position: S RN Member Role: Primary Care Nurse Name: Mady Simental RN Position: [facility] RN Member Role: Primary Care Nurse Name: Lala MELENDEZ, Chayito Position: [facility] [place] Nurse Member Role: Primary Care Nurse Care Team Related Persons Name: MICHELLE BROOKS Address: home [address] [address] Name: CECILIA STEPHEN Address: home [address] [place] [address] Name: PATRICIA BERNARDO Address: home [address] [place] [address]
--- OUTSIDE RECORDS SUMMARY | 2024-09-08 01:10 | XMS_ITS | Continuity of Care Document ---
Author Organization [facility] Adult Address [address] [place] [address]- Care Team Providers Care Assistant Professor Of Mathematics Name Role Phone Ema CORTEZ, Woody Primary Care Physician Encounter [facility] Date(s): 05/09/24 - 06/08/[address] [address]- Allergies, Adverse Reactions, Alerts Substance Reaction Severity Status codeine facial swelling, hives, trouble breathing Active penicillin facial swelling, dif ficulty breathing swell Active sulfa drugs facial swelling, dif ficulty breathing swell Active Zofran facial swelling, difficulty breathing Active Demerol difficulty breathing , full facial swelling swell Active Mushrooms facial swelling, difficulty breathing Active erythromycin facial swelling, dif ficulty breathing swell Active morphine facial swelling, dif ficulty breathing swell Active Toradol facial swelling, difficulty breathing Active Vicodin facial swelling, difficulty breathing Active Percocet facial swelling, difficulty breathing Active Tylox facial swelling, difficulty breathing Active Paxlovid rash [...] 0 Refills, Maintenance, 08/27/22 16:44:00 EDT, Gel, [facility]/pharmacy #1130, Partial fill upon [...] 09/26/23 16:31:00 EDT, Route to Pharmacy Electronically, [facility]/pharmacy #[id number], Partial fill upon patient request if the prescription is for a schedule II opioid drug... Start Date: 09/26/23 Status: Ordered omeprazole 40 mg oral enteric coated capsule See Instructions, TAKE 1 CAPSULE BY MOUTH EVERY DAY BEFORE A MEAL, # 90 capsule, 0 Refills, Maintenance, 05/19/24 12:39:00 EDT, [facility] STORE 76554, 155, cm, 09/26/23 15:55:00 EDT, Height, 100, kg, 08/07/22 10:52:00 EDT, Dry Weight Start Date: 05/19/24 Status: Ordered Ventolin HFA 108 mcg/inh inhalation aerosol with adapter 2 puffs, Inhalation, Every 6 hours, PRN NEEDED FOR WHEEZING/SHORTNESS OF BREATH, # 18 each, 0 Refills, Maintenance, 10/23/22 13:56:00 EST, [facility], 156, cm, 09/29/22 15:57:00 EDT, Height, 100, kg, 08/07/22 10:52:00 EDT, Dry Weight Start Date: 10/23/22 Status: Ordered verapamil 80 mg oral tablet 1 tablet = 80 mg, By Mouth, Daily, # 90 tablet, 3 Refills, Maintenance, 09/26/23 16:31:00 EDT, Tablet, [facility]/pharmacy #[id number], Partial fill upon patient [...] Team Personnel Name: Ana Diaz RN Position: [facility] RN Member Role: Primary Care Nurse Name: Rita Mccall RN Position: [facility] ED RN W/OE and Tasks Member Role: Primary Care Nurse Name: Woody Boo MD Position: [facility] Physician - Primary Care Member Role: PCP Address: Address: [address] [place] [address] 3rd [place] [address]- Name: Shannon Dai RN Position: [facility] RN Member Role: Primary Care Nurse Name: Mady Simental RN Position: [facility] RN Member Role: Primary Care Nurse Name: Chayito Reeves RN Position: [facility] Nurse Member Role: Primary Care Nurse Care Team Related Persons Name: MICHELLE BROOKS Address: home [address] [address] Name: CECILIA STEPHEN Address: home [address] [place] [address] Name: PATRICIA BERNARDO Address: home [address] [place] [address]
--- OUTSIDE RECORDS SUMMARY | 2024-09-08 01:10 | XMS_ITS | Continuity of Care Document ---
Author Organization [facility] Address [address] [place] [address]- Care Team Providers Care Geophysical Operator Name Role Phone Ema CORTEZ, Woody Primary Care Physician [facility]counter [facility] Date(s): 06/12/20 - 07/12/20 [facility] [address] [place] [address]- [facility] Attending Physician: AdmRory [email or web address] Admitting Physician: Admtr, [...] 10/04/19 8:48:53 EST, Route to Pharmacy Electronically, [id number], [facility]/pharmacy #1130 Start Date: 10/04/19 Stop Date: 10/18/19 Status: Ordered omeprazole 40 mg oral enteric coated capsule 1 capsule = 40 mg, By Mouth, Daily, # 90 capsule, 10 Refills, Maintenance, 12/05/19 9:09:00 EST, ECCapsule, [facility]/pharmacy #1130, 157.2, cm, 12/05/19 8:46:00 EST, [...]
--- OUTSIDE RECORDS SUMMARY | 2024-09-08 01:10 | XMS_ITS | Continuity of Care Document ---
Author Organization [facility] Adult Address [address] [place] [address]- Care Team Providers Care Marking Room Supervisor Name Role Phone Ema CORTEZ, Woody Primary Care Physician [facility]counter [facility] Date(s): 08/11/21 - 09/10/21 [facility] Adult [address] [place] [address]- Allergies, Adverse Reactions, Alerts Substance Reaction Severity [...] Refills, Soft Stop, 06/20/21 12:02:00 EDT, Tablet, [facility], Partial fill upon patient request if the prescription is for a schedule II opioid... Start Date: 06/20/21 Status: Ordered losartan 25 mg oral tablet 1 tablet, By Mouth, Daily, # 30 tablet, 5 Refills, [facility], 155, cm, 06/22/21 15:06:00 EDT,Height, 100, kg, 06/07/21 2:39:00 EDT, Dry Weight Start Date: 08/31/21 Status: Ordered omeprazole 40 mg oral enteric coated capsule See Instructions, TAKE 1 CAPSULE EVERY DAY BEFORE A MEAL FOR 30 DAYS, # 30 capsule, 2 Refills, Maintenance, [facility], 155, cm, 06/07/21 12:07:00 EDT, Height, 100, kg, 06/07/21 2:39:00 EDT, DryWeight Start Date: 06/09/21 Status: Ordered verapamil 40 mg oral tablet 2 tablet, By Mouth, Daily, # 60 tablet, 5 Refills, [facility], 155, cm, 06/22/21 15:06:00 EDT,Height, 100, kg, [...]
--- OUTSIDE RECORDS SUMMARY | 2024-09-08 01:10 | XMS_ITS | Continuity of Care Document ---
Author Organization [facility] Adult Address [address] [place] [address]- Care Team Providers Care Cook At School Name Role Phone Woody Boo MD Primary Care Physician ( [phone] Encounter [facility] Date(s): 01/14/21 - 02/13/21 [facility] Adult [address] [place] [address]- Attending Physician: Admtr, Rory8 Admitting Physician: Admtr, Ar8 Referring Physician: Admtr, Ar8 Allergies, Adverse Reactions, Alerts Substance Reaction Severity Status codeine facial swelling, hives, trouble breathing Active penicillin facial swelling, dif ficulty breathing swell Active sulfa drugs facial swelling, dif ficulty breathing swell Active Toradol facial swelling, difficulty breathing Active Percocet facial [...]
--- OUTSIDE RECORDS SUMMARY | 2024-09-08 01:10 | XMS_ITS | Continuity of Care Document ---
Author Organization [facility] Adult Address [address] [place] [address]- Care Team Providers Care Income Tax Investigator Name Role Phone Ema CORTEZ, Woody Primary Care Physician ( [phone] Encounter [facility] Date(s): 05/08/23 - 06/07/23 [facility] Adult [address] [place] [address]- Allergies, Adverse Reactions, Alerts Substance Reaction Severity Status codeine facial swelling, hives, trouble breathing Active Percocet facial swelling, difficulty breathing Active Demerol difficulty [...] Active Tylox facial swelling, difficulty breathing Active Mushrooms facial [...] 05/08/23 13:47:00 EDT, Route to Pharmacy Electronically, [id number], [facility]/pharmacy #[id number], 156, cm, 05/08/23 13:27:00 EDT, He... Start Date: 05/08/23 Stop Date: 06/07/23 Status: Ordered diclofenac 1% topical gel 1 application, Topically, 4 times a day, PRN Pain , Mild, not to exceed 8 grams/day/single joint ofupper extremities, # 100 Gm, 0 Refills, Maintenance, 08/27/22 16:44:00 EDT, Gel, [facility]/pharmacy #1130, Partial fill upon patient request if the prescript... Start Date: 08/27/22 Status: Ordered Diflucan 150 mg oral tablet 1 tablet = 150 mg, By Mouth, Once, # 1 tablet, 0 Refills, Soft Stop, 03/19/23 10:27:00 EDT, Tablet,[facility]/pharmacy #1130, Partial fill upon patient request [...] capsule, 1 Refills, Maintenance, 05/10/23 12:47:00 EDT, [facility] STORE 02445, 156, cm, 05/08/23 13:27:00 EDT, Height, 100, [...] 13:11:00 EDT, Aerosol, Route to Pharmacy Electronically, [id number], [facility], 156, cm, 03/29/23 12:30:00 EDT, Hei... Start Date: 03/29/23 Status: Ordered Ventolin HFA 108 mcg/inh inhalation aerosol with adapter 2 puffs, Inhalation, Every 6 hours, PRN NEEDED FOR WHEEZING/SHORTNESS OF BREATH, # 18 each, 0 Refills, Maintenance, 10/23/22 13:56:00 EST, [facility], 156, cm, 09/29/22 15:57:00 EDT, Height, 100, kg, 08/07/22 10:52:00 EDT, Dry Weight Start Date: 10/23/22 Status: Ordered verapamil 40 mg oral tablet 2 tablet, By Mouth, Daily, # 180 tablet, 1 Refills, Maintenance, 04/05/23 13:32:00 EDT, [facility], 156, cm, 03/29/23 12:30:00 EDT, Height, 100, [...] Team Personnel Name: Ana Diaz RN Position: [facility] RN Member Role: Primary Care Nurse Name: Rita Mccall RN Position: [facility] RN Member Role: Primary Care Nurse Name: Woody Boo MD Position: [facility] Physician - Primary Care Member Role: PCP Address: Address: [address] [place] [address] [address] [place], [place] [address] Name: Shannon Dai RN Position: [facility] RN Member Role: Primary Care Nurse Name: Mady Simental RN Position: [facility] RN Member Role: Primary Care Nurse Name: Chayito Reeves Position: [facility] Nurse Member Role: Primary Care Nurse Care Team Related Persons Name: CECILIA MICHELLE Address: home [address] [address] Name: STEPHEN BROOKS Address: home [address] [place] [address] Name: PATRICIA BERNARDO Address: home [address] [place] [address]
--- OUTSIDE RECORDS SUMMARY | 2024-09-08 01:10 | XMS_ITS | Continuity of Care Document ---
Author Organization [facility] Address [address] [place] [address]- Care Team Providers Care Hospitality Internship Name Role Phone Ema CORTEZ, Woody Primary Care Physician Encounter [facility] Date(s): 02/18/21 - 03/20/21 [facility] [address] [place] [address]- Allergies, Adverse Reactions, Alerts Substance Reaction Severity [...]
--- OUTSIDE RECORDS SUMMARY | 2024-09-08 01:10 | XMS_ITS | Continuity of Care Document ---
Author Organization [facility] Adult Address [address] [place] [address]- Care Team Providers Care Technical Photographer Name Role Phone Woody Boo MD Primary Care Physician Encounter [facility] Date(s): 06/22/21 - 07/22/21 [facility] Adult [address] [place] [address]- Attending Physician: Admtr, Ar8 Admitting Physician: Admtr, [...] Refills, Soft Stop, 06/20/21 12:02:00 EDT, Tablet, [facility]/pharmacy #1130, Partial fill upon patient request if the prescription is for a schedule II opioid... Start Date: 06/20/21 Status: Ordered losartan 25 mg oral tablet 1 tablet = 25 mg, By Mouth, Daily, # 30 tablet, 5 Refills, Maintenance, 01/31/21 18:36:00 EST, Tablet, [facility]/pharmacy #1130, 157.2, cm, 01/14/21 9:06:00 EST, Height, 97.8, kg, 12/26/19 13:26:00 EST, Dry Weight Start Date: 01/31/21 Status: Ordered omeprazole 40 mg oral enteric coated capsule See Instructions, TAKE 1 CAPSULE EVERY DAY BEFORE A MEAL FOR 30 DAYS, # 30 capsule, 2 Refills, Maintenance, [facility], 155, cm, 06/07/21 12:07:00 EDT, Height, 100, [...]
--- OUTSIDE RECORDS SUMMARY | 2024-09-08 01:10 | XMS_ITS | Continuity of Care Document ---
Author Organization [facility] Adult Address [address] [place] [address]- Care Team Providers Care Machine Operator Farmworker Name Role Phone Woody Boo MD Primary Care Physician Encounter [facility] Date(s): 02/25/20 - 03/03/20 [facility] Adult [address] [place] [address] [facility] Encounter Diagnosis Fever(Discharge Diagnosis) - 02/25/20 Contact with and (suspected) exposure to other viral communicable diseases (Discharge Diagnosis) - 02/25/20 Viral gastroenteritis(Discharge Diagnosis) - 02/25/20 Attending Physician: Woody Boo MD Allergies, Adverse [...] 10/04/19 8:48:53 EST, Route to Pharmacy Electronically, [id number], [facility]/pharmacy #1130 Start Date: 10/04/19 Stop Date: 10/18/19 Status: Ordered MD-Gastroview 66%-10% oral and rectal solution See Instructions, follow instructions provided, # 1 each, 0 Refills, Maintenance, 12/26/19 13:45:00EST, [facility], follow instructions provided, 157.2, cm, 12/26/19 13:26:00 EST, Height, 97.8, kg, 12/26/19 13:26:00 EST, Dry Weight Start Date: 12/26/19 Status: Ordered omeprazole 40 mg oral enteric coated capsule 1 capsule = 40 mg, By Mouth, Daily, # 90 capsule, 10 Refills, Maintenance, 12/05/19 9:09:00 EST, ECCapsule, [facility]/pharmacy #1130, 157.2, cm, 12/05/19 8:46:00 EST, Height, [...] sponge kidney(Confirmed) Active Obesity(Confirmed) Active Ureterolithiasis(Confirmed) Active Diagnosis Diagnosis Type Effective Dates Health Status Clinical Service Informant Fever Discharge Diagnosis 02/25/20 Contact with and (suspected) exposure to other viral communicable diseases Discharge Diagnosis 02/25/20 Viral gastroenteritis Discharge Diagnosis 02/25/20 Social History Social History Type Response Smoking Status Current some day smo ker; Other: smoking only a few cigs a week; entered on: 02/14/16 Sex Female
--- OUTSIDE RECORDS SUMMARY | 2024-09-08 01:10 | XMS_ITS | Continuity of Care Document ---
Author Organization [facility] Adult Address [address] [place] [address]- Care Team Providers Care Nurse School Name Role Phone Ema CORTEZ, Woody Primary Care Physician ( [phone] [place] [facility] [place] 04/17[place]22 - 05/17/22 [facility] Adult [address] [place] [address]- Allergies, Adverse Reactions, Alerts Substance Reaction Severity Status codeine facial swelling, hives, trouble breathing Active penicillin facial swelling, dif ficulty breathing swell Active sulfa drugs facial swelling, dif ficulty breathing swell Active Toradol facial swelling, difficulty breathing Active Vicodin facial swelling, difficulty breathing Active erythromycin facial swelling, dif ficulty breathing swell Active morphine facial swelling, dif ficulty breathing swell Active Mushrooms facial swelling, difficulty breathing Active Zofran facial [...] # 30 capsule, 2 Refills, [facility], 155, cm, 03/08/22 11:00:00 EDT, Height, 100, kg, 06/07/21 2:39:00 EDT, Dry Weight Start Date: 04/27/22 Status: Ordered verapamil 40 mg oral tablet 2 tablet, By Mouth, Daily, # 60 tablet, 2 Refills, [facility] STORE 59388, 155, cm, 03/08/22 11:00:00 EDT,Height, 100, kg, [...]
--- OUTSIDE RECORDS SUMMARY | 2024-09-08 01:10 | XMS_ITS | Continuity of Care Document ---
Author Organization [facility] Address [address] [place] [address]- Care Team Providers Care Skylights Assembler Name Role Phone Woody Boo MD Primary Care Physician Encounter [facility] Date(s): 11/12/19 - 12/25/19 [facility] [address] [place] [address] [facility] Attending Physician: Clemencia Og MD [...] 10/04/19 8:48:53 EST, Route to Pharmacy Electronically, [id number], [facility]/pharmacy #1130 Start Date: 10/04/19 Stop Date: 10/18/19 Status: Ordered Diflucan 150 mg oral tablet 1 tablet = 150 mg, By Mouth, Once, # 1 tablet, 1 Refills, Soft Stop, 11/12/19 11:30:00 EST, Tablet,[facility]/pharmacy #1130, 157.2, cm, 11/12/19 10:54:00 EST, Height, [...] 10 Refills, Maintenance, 12/05/19 9:09:00 EST, ECCapsule, [facility]/pharmacy #1130, 157.2, cm, 12/05/19 8:46:00 EST, Height, 98.4, kg, 12/05/19 8:46:00 EST, Dry Weight Start Date: 12/05/19 Status: Ordered omeprazole 40 mg oral enteric [...]
--- OUTSIDE RECORDS SUMMARY | 2024-09-08 01:10 | XMS_ITS | Continuity of Care Document ---
Author Organization [facility] Address [address] [place] [address]- Care Team Providers Care Corn Grinder Name Role Phone Ema CORTEZ, Woody Primary Care Physician En[place] [facility] [place] Date(s): 08/27/22 - 09/03/22 [facility] [address] [place], [place] [address] Attending Physician: Emigdio Doe DO Referring Physician: Woody Boo MD Allergies, Adverse [...] Refills, Maintenance, 08/06/22 10:11:00 EDT, [facility], 155, cm, 07/14/22 9:07:00 EDT, Height, 100, kg, 06/07/21 2:39:00 EDT, Dry Weight Start Date: 08/06/22 Status: Ordered predniSONE 20 mg oral tablet See Instructions, Start on 3 tablets by mouth for 3 days; 2 tablets by mouth for 3 days; 1 tablet by mouth x 3 days, # 18 tablet, 0 Refills, Acute 09/05/22 23:00:00 EDT, 08/27/22 16:40:00 EDT, Tablet, [facility]/pharmacy #1130, Partial fill upon... Start Date: 08/27/22 Stop Date: 09/05/22 Status: Ordered verapamil 40 mg oral tablet 2 tablet, By Mouth, Daily, # 60 tablet, 2 Refills, [facility] 54630, 155, cm, 03/08/22 11:00:00 EDT,Height, 100, kg, [...] Severe obesity Confirmed Active Ureterolithiasis Confirmed Active Vital Signs Most recent to oldest [Reference Range]: 1 Height 156 cm (08/27/22 1:25 PM) Oxygen Saturation [94-100 %] 97 % (08/27/22 1:25 PM) Pulse Rate [55-90 bpm] 83 bpm (08/27/22 1:25 PM) Blood Pressure [90-138/55-84 mm Hg] 134/ 87mm Hg (08/27/22 1:25 PM) Respiratory Rate [16-30 br/min] 18 br/mi n (08/27/22 1:25 PM) Temperature [96.8-100.4 DegF] 97.7 DegF (08/27/22 1:25 PM) Mode of Delivery (Oxygen) Room air (08/27/22 1:25 PM) Blood pressure sites Arm, left (08/27/22 1:25 PM) Temperature Route Temporal (08/27/22 1:25 PM) Social History Social History Type Response Tobacco Other: Quit June 27. Sex Female Patient Care team information Personnel Name: Ema CORTEZ, [facility] Address: Address: [address] [place] [address] [address]rd [address] [place], [place] [address]
--- OUTSIDE RECORDS SUMMARY | 2024-09-08 01:10 | XMS_ITS | Continuity of Care Document ---
Author Organization [facility] Address [address] [place] [address]- Care Team Providers Care Plant Sprayer Name Role Phone [facility]olay [facility]oo [facility] Primary [facility] Physician En[facility] Date(s): 12/26/19 - 01/05/20 [facility] [address] [place] [address]- [facility] Attending Physician: Admserena, Dianne Admitting Physician: AdmtrDianne Referring Physician: Admtr, Ar8 Allergies, Adverse Reactions, [...] 10/04/19 8:48:53 EST, Route to Pharmacy Electronically, [id number], [facility]/pharmacy #[id number] Start Date: 10/04/19 Stop Date: 10/18/19 Status: Ordered -Gastroview 66%-10% oral and rectal solution See Instructions, follow instructions provided, # 1 each, 0 Refills, Maintenance, 12/26/19 13:45:00EST, [facility], follow instructions provided, 157.2, cm, 12/26/19 13:26:00 EST, Height, 97.8, kg, 12/26/19 13:26:00 EST, Dry Weight Start Date: 12/26/19 Status: Ordered omeprazole 40 mg oral enteric coated capsule 1 capsule = 40 mg, By Mouth, Daily, # 90 capsule, 10 Refills, Maintenance, 12/05/19 9:09:00 EST, ECCapsule, [facility]/pharmacy #[id number], 157.2, cm, 12/05/19 8:46:00 EST, Height, [...]
--- OUTSIDE RECORDS SUMMARY | 2024-09-08 01:10 | XMS_ITS | Continuity of Care Document ---
Author Organization [facility] Address [address] [place] [address]- Care Team Providers Care Distribution Lead Name Role Phone Ema CORTEZ, Woody Primary Care Physician Encounter [facility] Date(s): 05/19/24 - 06/18/[address] [address]- Allergies, Adverse Reactions, Alerts Substance Reaction Severity [...] swelling, difficulty breathing Active Paxlovid rash Active Demerol difficulty breathing , full facial [...] EDT, Gel, [facility]/pharmacy #[id number], Partial fill upon patient request [...] Pharmacy Electronically, [facility]/pharmacy #[id number], Partial fill upon patient request if the prescription is for a schedule II opioid drug... Start Date: 09/26/23 Status: Ordered omeprazole 40 mg oral enteric coated capsule See Instructions, TAKE 1 CAPSULE BY MOUTH EVERY DAY BEFORE A MEAL, # 90 capsule, 0 Refills, Maintenance, 05/19/24 12:39:00 EDT, [facility] STORE [id number], 155, cm, 09/26/23 15:55:00 EDT, Height, 100, kg, 08/07/22 10:52:00 EDT, Dry Weight Start Date: 05/19/24 Status: Ordered Ventolin HFA 108 mcg/inh inhalation aerosol with adapter 2 puffs, Inhalation, Every 6 hours, PRN NEEDED FOR WHEEZING/SHORTNESS OF BREATH, # 18 each, 0 Refills, Maintenance, 10/23/22 13:56:00 EST, [id number], 156, cm, 09/29/22 15:57:00 EDT, Height, 100, [...] Team Personnel Name: Ana Diaz RN Position: [facility] RN Member Role: Primary Care Nurse Name: Rita Mccall RN Position: [facility] ED RN W/OE and Tasks Member Role: Primary Care Nurse Name: Woody Boo MD Position: [facility] Physician - Primary Care Member Role: PCP Address: Address: [address] [place] [address] [address]rd [place] [address]- Name: Shannon Dai RN Position: [facility] RN Member Role: Primary Care Nurse Name: Mady Simental RN Position: [facility] RN Member Role: Primary Care Nurse Name: Chayito Reeves RN Position: [facility] Nurse Member Role: Primary Care Nurse Care Team Related Persons Name: MICHELLE BROOKS Address: home [address] [address] Name: CECILIA STEPHEN Address: home [address] [place] [address] Name: PATRICIA BERNARDO Address: home [address] [place] [address]
--- OUTSIDE RECORDS SUMMARY | 2024-09-08 01:10 | XMS_ITS | Continuity of Care Document ---
Author Organization [facility] Address [address] [place] [address]- Care Team Providers Care Shuttlecock Assembler Name Role Phone Ema CORTEZ, Woody Primary Care Physician ( [phone] Encounter [facility] Date(s): 03/29/23 - 04/28/23 [facility] [address] [place] [address]- Allergies, Adverse Reactions, Alerts Substance Reaction Severity [...] Virus Vaccine 05/06/76 Given pneumococcal 23-valent vaccine 12/6/15 Given tetanus-diphtheria toxoids (Td) 09/04/15 Recorded tetanus-diphtheria [...] capsule, 0 Refills, Maintenance, 02/07/23 11:02:00 EDT, [id number], 156, cm, 09/29/22 15:57:00 EDT, Height, 100, kg, 08/07/22 10:52:00 EDT, Dry Weight Start Date: 02/07/23 Status: Ordered predniSONE 10 mg oral tablet See Instructions, 4 tablet By Mouth Daily for 3 days, 3 tabs for 3 days, 2 tabs for 3 days, 1 tab for 3 days, # 30 tablet, 0 Refills, Maintenance, 09/29/22 16:41:00 EDT, [facility]/pharmacy #[id number], Partial fill upon patient request if the prescription is for... Start Date: 09/29/22 Status: Ordered ProAir HFA 90 mcg/inh inhalation aerosol with adapter 2, puffs, Inhalation, Every 4 hours, PRN, # 8.5 Gm, Refills 0, Tot. Refills 0, Maintenance, 03/29/23 13:11:00 EDT, Aerosol, Route to Pharmacy Electronically, [id number], [facility]/pharmacy #[id number], 156, cm, 03/29/23 12:30:00 EDT, Hei... Start Date: 03/29/23 Status: Ordered Ventolin HFA 108 mcg/inh inhalation aerosol with adapter 2 puffs, Inhalation, Every 6 hours, PRN NEEDED FOR WHEEZING/SHORTNESS OF BREATH, # 18 each, 0 Refills, Maintenance, 10/23/22 13:56:00 EST, [facility], 156, cm, 09/29/22 15:57:00 EDT, Height, 100, kg, 08/07/22 10:52:00 EDT, Dry Weight Start Date: 10/23/22 Status: Ordered verapamil 40 mg oral tablet 2 tablet, By Mouth, Daily, # 180 tablet, 1 Refills, Maintenance, 04/05/23 13:32:00 EDT, [facility], 156, cm, 03/29/23 12:30:00 EDT, Height, 100, [...] Team Personnel Name: Ana Diaz RN Position: [facility] RN Member Role: Primary Care Nurse Name: Rita Mccall RN Position: S RN Member Role: Primary Care Nurse Name: Woody Boo MD Position: S Physician - Primary Care Member Role: PCP Address: Address: [address] [place] [address] [address] [place], [place] [address] Name: Shannon Dai RN Position: S RN Member Role: Primary Care Nurse Name: Mady Simental RN Position: S RN Member Role: Primary Care Nurse Name: Chayito Reeves Position: [facility] AMB Nurse Member Role: Primary Care Nurse Care Team Related Persons Name: FÁTIMA BROOKSHLEEN Address: home [address] [address] Name: STEPHEN BROOKS Address: home [address] [place] [address] Name: PATRICIA BERNARDO Address: home [address] [place] [address]
--- OUTSIDE RECORDS SUMMARY | 2024-09-08 01:10 | XMS_ITS | Continuity of Care Document ---
Author Organization [facility] Address [address] [place] [address]- Care Team Providers Care Fruit Thinner Name Role Phone Ema CORTEZ, Woody Primary Care Physician ( [phone] Encounter [facility] Date(s): 01/09/23 - 02/08/23 [facility] [address] [place] [address]- Attending Physician: Admtr, Ar8 Admitting Physician: Admtr, [...] 0 Refills, Maintenance, 08/27/22 16:44:00 EDT, Gel, [facility]/pharmacy #[id number], Partial fill upon patient request if [...] each, 0 Refills, Maintenance, 10/23/22 13:56:00 EST, [facility], 156, cm, 09/29/22 15:57:00 EDT, Height, 100, kg, 08/07/22 10:52:00 EDT, Dry Weight Start Date: 10/23/22 Status: Ordered verapamil 40 mg oral tablet 2 tablet, By Mouth, Daily, # 60 tablet, 5 Refills, Maintenance, 10/06/22 13:05:00 EST, [facility], 156, cm, 09/29/22 15:57:00 EDT, Height, 100, [...] Care Nurse Name: Woody Boo MD Position: [facility] Primary Care Physician Member Role: PCP Address: Address: [address] [place] [address] 3rd [place] [address]- Name: Shannon Dai RN Position: [facility] RN Member Role: Primary Care Nurse Name: Mady Simental RN Position: [facility] RN Member Role: Primary Care Nurse Name: Chayito Reeves RN Position: [facility] Nurse Member Role: Primary Care Nurse Care Team Related Persons Name: MICHELLE BROOKS Address: home [address] [address] Name: STEPHEN BROOKS Address: home [address] [place] [address] Name: PATRICIA BERNARDO Address: home [address] [place] [address]
--- OUTSIDE RECORDS SUMMARY | 2024-09-08 01:10 | XMS_ITS | Continuity of Care Document ---
Author Organization [facility] Adult Address [address] [place] [address]- Care Team Providers Care Pipe Coverer And Insulator Name Role Phone Ema CORTEZ, Woody Primary Care Physician ( [phone] Encounter [facility] Date(s): 09/29/22 - 10/06/[address] [address]- Encounter Diagnosis Chest heaviness(Discharge Diagnosis) - 09/29/22 COVID-19 virus infection(Discharge Diagnosis) - 09/29/22 Bilateral leg pain(Discharge Diagnosis) - 09/29/22 Attending Physician: Lesley Borges MD Referring Physician: Ema CORTEZ, Woody Allergies, Adverse Reactions, Alerts Substance Reaction Severity Status codeine facial swelling, hives, trouble breathing Active erythromycin facial swelling, dif ficulty breathing swell Active penicillin facial swelling, dif ficulty breathing swell Active morphine facial swelling, dif ficulty breathing swell Active sulfa drugs facial swelling, dif ficulty breathing swell Active Toradol facial swelling, difficulty breathing Active Zofran facial swelling, difficulty breathing Active Vicodin facial swelling, difficulty breathing Active Demerol difficulty breathing , full facial swelling swell Active Mushrooms facial swelling, difficulty breathing Active Paxlovid rash Active Percocet facial swelling, difficulty breathing Active [...] 1Admin Note: VIS GIVEN TO PATIENT. Medications Albuterol (Eqv-ProAir HFA) 90 mcg/inh inhalation aerosol 2 puffs, Inhalation, Every 6 hours, PRN Wheezing/Shortness of Breath, # 8.5 Gm, 0 Refills, Maintenance, 09/29/22 16:41:00 EDT, [id number], Partial fill upon patient request if the prescription is for a schedule II opioid drug., 2 puffs Inhalat... Start Date: 09/29/22 Status: Ordered diclofenac 1% topical gel 1 [...] Refills, Maintenance, 08/06/22 10:11:00 EDT, [facility], 155, cm, 07/14/22 9:07:00 EDT, Height, 100, [...] is for... Start Date: 09/29/22 Status: Ordered verapamil 40 mg oral tablet 2 tablet, By Mouth, Daily, # 60 tablet, 5 Refills, Maintenance, 10/06/22 13:05:00 EST, [facility], 156, cm, 09/29/22 15:57:00 EDT, Height, 100, [...] Diagnosis Diagnosis Type Effective Dates Health Status inical Service Informant Chest heaviness Discharge Diagnosis 09/29/22 COVID-19 virus infection Discharge Diagnosis 09/29/22 Bilateral leg pain Discharge Diagnosis 09/29/22 Vital Signs Most recent to oldest [Reference Range]: 1 Height 156 cm (09/29/22 3:57 PM) Weight 101.5 kg (09/29/22 3:57 PM) Oxygen Saturation [94-100 %] 96 % (09/29/22 3:57 PM) Pulse Rate [55-90 bpm] 92 bpm *H* (09/29/22 3:57 PM) Body Mass Index [18.5-24.99 kg/m2] 41.71 kg/m2 *>HHI* (09/29/22 3:57 PM) Blood Pressure [90-138/55-84 mm Hg] 134/ 84mm Hg (09/29/22 3:57 PM) Temperature [96.8-100.4 DegF] 98.3 DegF (09/29/22 3:57 PM) Mode of Delivery (Oxygen) Room air (09/29/22 3:57 PM) Temperature Route Oral (09/29/22 3:57 PM) Social History Social History Type Response Tobacco Other: Quit June 27. Sex Female EKG study * Event Display: ECG 12-Lead Authored Date: Please click on pdf link to open report * Event Display: ECG 12-Lead Authored Date: Ventricular Rate: 83 BPM Atrial Rate: 83 BPM P-R Interval: 156 ms QRS Duration: 68 ms Q-T Interval: 392 ms QTC Calculation(Bazett): 460 ms P [place]: 48 degrees R Mayodan: 10 degrees T [place]odan: 43 degrees Normal sinus rhythm Normal ECG When compared with ECG of 07-AUG-2022 10:51, No significant change was found Confirmed by FERNANDO BOLANOS MD ([id number]) on 09/30/2022 4:23:59 PM [place]: FERNANDO BOLANOS MD Note * Keri Gan: PERFORM, SIGN, VERIFY Event Display: Patient Education/Instruction Authored Date: [facility] *BMP [facility] Clinical Summary Name CHRISTIAN BROOKS Age 47 Years 1975 PCP Woody Boo MD PCP Visit Date 09/29/2022 15:55:00 Additional Instructions: Scheduled Appointments?? Future Appointments ?No Future Appointments Scheduled Follow-Up Instructions ?? Diagnosis Pain in right leg; COVID-19; Other chest pain Medications: Please continue your medications until treatment is completed or stopped by your provider. Discuss any questions related to medications with your provider. Medications to Continue with No Changes These medications were not printed or sent to your pharmacy Diclofenac Topical (diclofenac 1% topical gel) 1 donato Topically 4 times a day as needed Pain , Mild.not to exceed 8 grams/day/single joint of upper extremities. Refills: 0. Next Dose: Losartan (losartan 25 mg oral tablet) 2 tab(s) Oral Daily. Refills: 5. Next Dose: Omeprazole (omeprazole 40 mg oral enteric coated capsule) TAKE 1 CAPSULE EVERY DAY BEFORE A MEAL FOR 30 DAYS. Refills: 2. Next Dose: Verapamil (verapamil 40 mg oral tablet) 2 tab(s) Oral Daily. Refills: 2. Next Dose: Allergy Info:?? Paxlovid; Mushrooms; Demerol; Vicodin; Tylox; Percocet; Zofran; Toradol; sulfa drugs; morphine; penicillin; erythromycin; codeine Medications Given This Visit Future Orders ?CPK Total Only? Order Date:09/29/22?- Complete on or after?09/29/22 ?CBC? Order Date:09/29/22?- Complete on or after?09/29/22 ?Chest 2 Views Frontal and Lat? Order Date:09/29/22?- Complete on or after?09/29/22 ?Renal Panel? Order Date:09/29/22?- Complete on or after?09/29/22 ?D Dimer? Order Date:09/29/22?- Complete on or after?09/29/22 Vital Signs Height 156 cm Weight 101.5 kg BMI 41.71 kg/m2 Blood Pressure 134 mm Hg/84 mm Hg Temperature 98.3 DegF Pulse Rate 92 bpm Respiratory Rate 02 Sat Mode of Delivery 96 %/Room air You can now view a summary of your hospital visit from the comfort of your home through a free online portal called [employer]. [employer] is a website that allows you to securely view your medical information including discharge summary, medications and follow-up visits. ??You can alsosend a secure electronic message to your doctor???s office to request appointments, renew medications or just ask a question. You can enroll at [email or web address] or register during your next [...] primary care provider, you may find a [facility] provider by calling [email or web address] Link at [phone]. For information about the plan of care [...] Team Personnel Name: Ana Diaz RN Position: [facility] RN Member Role: Primary Care Nurse Name: Rita Mccall RN Position: [facility] RN Member Role: Primary Care Nurse Name: Woody Boo MD Position: [facility] Primary Care Physician Member Role: PCP Address: Address: [address] [place] [address] [address] [place] [address]- Name: Shannon Dai RN Position: [facility] RN Member Role: Primary Care Nurse Name: Mady Simental RN Position: [facility] RN Member Role: Primary Care Nurse Name: Meek Shin RN Position: [facility] RN Member Role: Primary Care Nurse Name: Chayito Reeves RN Position: [facility] AMB Nurse Member Role: Primary Care Nurse Care Team Related Persons Name: MICHELLE BROOKS Address: home [address] [address] Name: STEPHEN BROOKS Address: home [address] [place] [address] Name: PATRICIA BERNARDO Address: home [address] [place] [address]
--- OUTSIDE RECORDS SUMMARY | 2024-09-08 01:10 | XMS_ITS | Continuity of Care Document ---
Author Organization [facility] Address [address] [place] [address]- Care Team Providers Care Accounting Manager Controller Name Role Phone Woody Boo MD Primary Care Physician [place] [facility] Date[place]s): 05/10/23 - 05/11/[address] [address]- Discharge Disposition: A-D/C Walkout Attending Physician: Not on Staff, Attending MD Admitting Physician: Not on Staff, Admitting MD Referring Physician: Not on Staff, Referring [...] 05/08/23 13:47:00 EDT, Route to Pharmacy Electronically, [id number], [facility]/pharmacy #[id number], 156, cm, 05/08/23 13:27:00 EDT, He... Start Date: 05/08/23 Stop Date: 06/07/23 Status: Ordered azithromycin 250 mg oral tablet See Instructions, Take 2 tablets by mouth once on day 1, then 1 tablet by mouth once on days 2 through 5., # 6 tablet, 0 Refills, Acute 05/16/23 13:13:00 EDT, 05/11/23 13:12:00 EDT, [facility]/pharmacy #[id number], Partial fill upon patient request if the prescrip... Start Date: 05/11/23 Stop Date: 05/16/23 Status: Ordered diclofenac 1% topical gel 1 [...] Height, 10... Start Date: 03/19/23 Status: Ordered doxycycline hyclate 100 mg oral capsule 1 capsule = 100 mg, By Mouth, 2 times a day, for 7 days, Take with food, but avoid at the same timeas dairy, # 14 capsule, 0 Refills, Acute 05/15/23 13:47:00 EDT, 05/08/23 13:47:00 EDT, C[facility], [id number], Partial fill upon patient request i... Start Date: 05/08/23 Stop Date: 05/15/23 Status: Ordered losartan 25 mg oral tablet [...] Refills, Maintenance, 05/10/23 12:47:00 EDT, [facility], 156, cm, 05/08/23 13:27:00 EDT, Height, 100, kg, 08/07/22 10:52:00 EDT, Dry Weight Start Date: 05/10/23 Status: Ordered predniSONE 10 mg oral tablet See Instructions, 4 tablet By Mouth Daily for 3 days, 3 tabs for 3 days, 2 tabs for 3 days, 1 tab for 3 days, # 30 tablet, 0 Refills, Maintenance, 09/29/22 16:41:00 EDT, [facility]/pharmacy #[id number], Partial fill upon patient request if the prescription is for... Start Date: 09/29/22 Status: Ordered predniSONE 10 mg oral tablet See Instructions, 4 tab x 3d, 3 tab x 3d, 2 tab x 3d, 1 tab x 3d. First dose now, then in AM. Take w/ food., # 30 tablet, 0 Refills, Acute 05/26/23 13:47:00 EDT, 05/08/23 13:47:00 EDT, [facility]/pharmacy #[id number], Partial fill upon patient request if the presc... Start Date: 05/08/23 Stop Date: 05/26/23 Status: Ordered ProAir HFA 90 mcg/inh inhalation aerosol with adapter 2, puffs, Inhalation, Every 4 hours, PRN, # 8.5 Gm, Refills 0, Tot. Refills 0, Maintenance, 03/29/23 13:11:00 EDT, Aerosol, Route to Pharmacy Electronically, [id number], [facility]/pharmacy #[id number], 156, cm, 03/29/23 12:30:00 EDT, Hei... Start Date: 03/29/23 Status: Ordered Tessalon Perles 100 mg oral capsule 1 capsule = 100 mg, By Mouth, 3 times a day, PRN Cough, for 10 days, # 30 capsule, 0 Refills, Acute05/21/23 12:25:00 EDT, 05/11/23 12:25:00 EDT, Capsule, [facility]/pharmacy #1130, Partial fill upon patient request if the prescription is for a schedule II o... Start Date: 05/11/23 Stop Date: 05/21/23 Status: Ordered Ventolin HFA 108 mcg/inh inhalation aerosol with adapter 2 puffs, Inhalation, Every 6 hours, PRN NEEDED FOR WHEEZING/SHORTNESS OF BREATH, # 18 each, 0 Refills, Maintenance, 10/23/22 13:56:00 EST, [facility], 156, cm, 09/29/22 15:57:00 EDT, Height, 100, kg, 08/07/22 10:52:00 EDT, Dry Weight Start Date: 10/23/22 Status: Ordered verapamil 40 mg oral tablet 2 tablet, By Mouth, Daily, # 180 tablet, 1 Refills, Maintenance, 04/05/23 13:32:00 EDT, [facility], 156, cm, 03/29/23 12:30:00 EDT, Height, 100, [...] to oldest [Reference Range]: 1 2 Height 155 cm (05/10/23 11: PM) Weight 97.7 kg (05/10/23 PM) Oxygen Saturation [94-100 %] 100 % (05/10/23 PM) 100 % (05/10/23 PM) Pulse Rate [55-90 bpm] 74 bpm (05/10/23: PM) 87 bpm (05/10/23 PM) Body Mass Index [18.5-24.99 kg/m2] 40.67 kg/m2 *>HHI* (05/10/23 PM) Blood Pressure [90-138/55-84 mm Hg] 148/ 103mm Hg *H* (05/10/23 PM) Respiratory Rate [16-30 br/min] 17 br/mi n (05/10/23 PM) Temperature [96.8-100.4 DegF] 97.9 DegF (05/10/23: PM) Mode of Delivery (Oxygen) Room air (05/10/23 11: PM) Room air (6/15/23 11:23 PM) Blood pressure sites Arm, left (05/10/23 11:27 PM) Temperature Route Oral (05/10/23 11:27 PM) Weight Obtained Via Patient/family state d (05/10/23 11:27 PM) Social History Social History Type Response Tobacco Other: Quit June 27. Sex Female Patient Care team information Care Team Personnel Name: Ana Diaz RN Position: S RN Member Role: Primary Care Nurse Name: Rita Mccall RN Position: S RN Member Role: Primary Care Nurse Name: Woody Boo MD Position: [facility] Physician - Primary Care Member Role: PCP Address: Address: [address] [place] [id number] Name: Shannon Dai RN Position: [facility] RN Member Role: Primary Care Nurse Name: Mady Simental RN Position: [facility] RN Member Role: Primary Care Nurse Name: Chayito Reeves Position: [facility] Nurse Member Role: Primary Care Nurse Care Team Related Persons Name: MICHELLE BROOKS Address: home [address] [address] Name: STEPHEN BROOKS Address: home [address] [place] [address] Name: PATRICIA BERNARDO Address: home [address] [place] [address]
--- OUTSIDE RECORDS SUMMARY | 2024-09-08 01:10 | XMS_ITS | Continuity of Care Document ---
Author Organization [facility] Address [address] [place] [address]- Care Team Providers Care Assistant Office Manager Name Role Phone Ema CORTEZ, Woody Primary Care Physician Encounter [facility] Date(s): 05/08/23 - 06/07/23 [facility] [address] [place], [place] [address] Attending Physician: Admtr, Ar8 Admitting Physician: Admtr, [...] 05/08/23 13:47:00 EDT, Route to Pharmacy Electronically, [id number], [facility]/pharmacy #[id number], 156, cm, 05/08/23 13:27:00 EDT, He... Start Date: 05/08/23 Stop Date: 06/07/23 Status: Ordered diclofenac 1% topical gel 1 application, Topically, 4 times a day, PRN Pain , Mild, not to exceed 8 grams/day/single joint ofupper extremities, # 100 Gm, 0 Refills, Maintenance, 08/27/22 16:44:00 EDT, Gel, [facility]/pharmacy #1130, Partial fill upon patient request if the prescript... Start Date: 08/27/22 Status: Ordered Diflucan 150 mg oral tablet 1 tablet = 150 mg, By Mouth, Once, # 1 tablet, 0 Refills, Soft Stop, 03/19/23 10:27:00 EDT, Tablet,[facility]/pharmacy #1130, Partial fill upon patient request if the prescription is for a schedule II opioid drug., 156, cm, 09/29/22 15:57:00 EDT, Height, 10... Start Date: 03/19/23 Status: Ordered losartan 25 mg oral tablet 2 tablet = 50 mg, By Mouth, Daily, for 30 days, # 60 tablet, 6 Refills, Physician Stop 07/11/23 11:33:00 EDT, 12/13/22 11:33:00 EST, [facility]/pharmacy #1130, 156, cm, 09/29/22 15:57:00 EDT, Height, 100, kg, 08/07/22 10:52:00 EDT, Dry Weight Start Date: 12/13/22 Stop Date: 07/11/23 Status: Ordered omeprazole 40 mg oral enteric coated capsule See Instructions, TAKE 1 CAPSULE BY MOUTH EVERY DAY BEFORE A MEAL, # 90 capsule, 1 Refills, Maintenance, 05/10/23 12:47:00 EDT, [facility] STORE 12[facility], 156, cm, 05/08/23 13:27:00 EDT, Height, 100, kg, 08/07/22 10:52:00 EDT, Dry Weight Start Date: 05/10/23 Status: Ordered predniSONE 10 mg oral tablet See Instructions, 4 tablet By Mouth Daily for 3 days, 3 tabs for 3 days, 2 tabs for 3 days, 1 tab for 3 days, # 30 tablet, 0 Refills, Maintenance, 09/29/22 16:41:00 EDT, [facility]/pharmacy #1130, Partial fill upon patient request if the prescription is for... Start Date: 09/29/22 Status: Ordered ProAir HFA 90 mcg/inh inhalation aerosol with adapter 2, puffs, Inhalation, Every 4 hours, PRN, # 8.5 Gm, Refills 0, Tot. Refills 0, Maintenance, 03/29/23 13:11:00 EDT, Aerosol, Route to Pharmacy Electronically, [id number], [facility]/pharmacy #1130, 156, cm, 03/29/23 12:30:00 EDT, Hei... Start Date: 03/29/23 Status: Ordered Ventolin HFA 108 mcg/inh inhalation aerosol with adapter 2 puffs, Inhalation, Every 6 hours, PRN NEEDED FOR WHEEZING/SHORTNESS OF BREATH, # 18 each, 0 Refills, Maintenance, 10/23/22 13:56:00 EST, [facility], 156, cm, 09/29/22 15:57:00 EDT, Height, 100, kg, 08/07/22 10:52:00 EDT, Dry Weight Start Date: 10/23/22 Status: Ordered verapamil 40 mg oral tablet 2 tablet, By Mouth, Daily, # 180 tablet, 1 Refills, Maintenance, 04/05/23 13:32:00 EDT, [facility], 156, cm, 03/29/23 12:30:00 EDT, Height, 100, [...] Team Personnel Name: Ana Diaz RN Position: [facility] RN Member Role: Primary Care Nurse Name: Rita Mccall RN Position: [facility] RN Member Role: Primary Care Nurse Name: Woody Boo MD Position: [facility] Physician - Primary Care Member Role: PCP Address: Address: [address] [place] [address] [address]rd [place] [address]- Name: Shannon Dai RN Position: [facility] RN Member Role: Primary Care Nurse Name: Mady Simental RN Position: S RN Member Role: Primary Care Nurse Name: Chayito Reeves Position: [facility] AMB Nurse Member Role: Primary Care Nurse Care Team Related Persons Name: MICHELLE BROOKS Address: home [address] [address] Name: STEPHEN BROOKS Address: home [address] [place] [address] Name: PATRICIA BERNARDO Address: home [address] [place] [address]
--- OUTSIDE RECORDS SUMMARY | 2024-09-08 01:10 | XMS_ITS | Continuity of Care Document ---
Author Organization [facility] ter Address [address] [place] [address]- Care Team Providers Care Hand Rounder Name Role Phone Woody Boo MD Primary Care Physician Encounter [facility] [place] Date(s): 06/06/21 - 06/07/[address] [address]- Encounter Diagnosis Headache(Final) - 06/06/21 Dizziness(Final) - 06/06/21 Discharge Disposition: A-D/C Home Attending Physician: Eve Combs MD Admitting Physician: Josias Graham MD Referring Physician: Not on Staff, Referring [...] PATIENT. Medications losartan 25 mg oral tablet 25 mg, Tablet, By Mouth, 06/07/21 9:00:00 EDT Start Date: 06/07/21 Stop Date: 06/07/21 Status: Completed losartan 25 mg oral tablet 1 tablet = 25 mg, By Mouth, Daily, # 30 tablet, 5 Refills, Maintenance, 01/31/21 18:36:00 EST, Tablet, [facility], 157.2, cm, 01/14/21 9:06:00 EST, Height, 97.8, kg, 12/26/19 13:26:00 EST, Dry Weight Start Date: 01/31/21 Status: Ordered meclizine 12.5 mg oral tablet 1 tablet = 12.5 mg, By Mouth, 3 times a day, PRN for dizziness, for 3 days, # 24 tablet, 0 Refills,Acute 06/10/21 16:13:00 EDT, 06/07/21 16:13:00 EDT, Tablet, [facility], Partial fill upon patient request if the prescription is for a schedule... Start Date: 06/07/21 Stop Date: 06/10/21 Status: Ordered omeprazole 40 mg oral enteric coated capsule 1 capsule = 40 mg, By Mouth, Daily, before a meal, # 30 capsule, 5 Refills, Maintenance, 12/14/20 11:15:00 EST, EC Capsule, [facility], Partial fill upon patient request if the prescription is for a schedule II opioid drug., 157.2, cm, ... Start Date: 12/14/20 Stop Date: 06/12/21 Status: Ordered outpatient PT for Vestibular rehabilitation for dx of BPPV outpatient PT for Vestibular rehabilitation for dx of BPPV, See Instructions, # 1 each, Refills 0, Tot. Refills 0, Maintenance, outpatient PT for Vestibular rehabilitation for dx of BPPV, 06/07/21 18:00:00 EDT, Supply Start Date: 06/07/21 Status: Ordered prochlorperazine 5 mg oral tablet 1 tablet = 5 mg, By Mouth, 2 times a day, for 3 days, prn for nausea and vomiting, # 6 tablet, 0 Refills, Acute 06/10/21 16:31:00 EDT, 06/07/21 16:31:00 EDT, Tablet, [facility]/pharmacy #1130, Partial fill upon patient request if the prescription is for a sc... 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 migraine(Confirmed) Active Hyperlipidemia(Confirmed) Active Hypertension(Confirmed) Active Medullary sponge kidney(Confirmed) Active Obesity(Confirmed) Active Ureterolithiasis(Confirmed) Active Vital Signs Most recent to oldest [Reference Range]: 1 2 3 Height 155 cm (06/07/21 12:07 PM) 155 cm (06/07/21 7:56 AM) 155 cm (06/07/21 2:39 AM) Weight 100 kg (06/07/21 2:39 AM) 100 kg (06/07/21 1:34 AM) 100 kg (06/06/21 9:06 PM) Oxygen Saturation [94-100 %] 95 % (06/07/21 12:07 PM) 98 % (06/07/21 7:56 AM) 96 % (06/07/21 1:34 AM) Pulse Rate [55-90 bpm] 84 bpm (06/07/21 12:07 PM) 81 bpm (06/07/21 8:57 AM) 81 bpm (06/07/21 7:56 AM) Body Mass Index [18.5-24.99] 41.62 *>HHI* (06/07/21 2:39 AM) 41.62 *>HHI* (06/07/21 1:34 AM) 41.62 *>HHI* (06/06/21 9:06 PM) Blood Pressure [90-138/55-84 mm Hg] 121/78mm Hg (06/07/21 12:07 PM) 125/75mm Hg (06/07/21 8:57 AM) 125/75mm Hg (06/07/21 8:57 AM) Respiratory Rate [16-30 br/min] 18 br/min (06/07/21 12:07 PM) 18 br/min (06/07/21 7:56 AM) 18 br/min (06/07/21 2:39 AM) Temperature [96.8-100.4 DegF] 98 DegF (06/07/21 12:07 PM) 98 DegF (06/07/21 7:56 AM) 98.2 DegF (06/07/21 2:39 AM) Liters per Minute 0 L/min (06/06/21 12:14 PM) Mode of Delivery (Oxygen) Room air (06/07/21 12:07 PM) Room air (06/07/21 7:56 AM) Room air (06/07/21 1:34 AM) Blood pressure sites Arm, right (06/07/21 12:07 PM) Arm, right (06/07/21 7:56 AM) Arm, left (06/07/21 2:39 AM) Temperature Route Oral (06/07/21 12:07 PM) Oral (06/07/21 7:56 AM) Oral (06/07/21 2:39 AM) Dry Weight 100 kg (06/07/21 2:39 AM) 100 kg (06/07/21 1:34 AM) 100 kg (06/06/21 9:06 PM) Weight Obtained Via stated by pt (06/06/21 12:14 PM) Dry Weight Obtained Via stated by pt (06/06/21 12:14 PM) Social History Social History Type Response Smoking Status Current some day smo ker; Other: smoking only a few cigs a week; entered on: 02/14/16 Sex Female
--- OUTSIDE RECORDS SUMMARY | 2024-09-08 01:10 | XMS_ITS | Continuity of Care Document ---
Author Organization [facility] Address [address] [place] [address]- Care Team Providers Care Design Specialist Name Role Phone Ema CORTEZ, Woody Primary Care Physician ( [phone] [place] [facility] [place] 12/16/20 - 01/15/21 [facility] [address] [place] [address]- Allergies, Adverse Reactions, Alerts Substance Reaction Severity [...] Dry Weight Start Date: 09/13/20 Status: Ordered nystatin topical 111693 u/gm powder 1 application, Topically, 2 times a day, for 14 days, # 60 Gm, 1 Refills, Acute 02/11/21 9:20:00 EDT, 01/14/21 9:20:00 EST, Pow[facility], [facility], Partial fill upon patient request if the prescription is for a schedule II opioid drug., 1 applicat... Start Date: 01/14/21 Stop Date: 02/11/21 Status: Ordered omeprazole 40 mg oral enteric [...]
--- OUTSIDE RECORDS SUMMARY | 2024-09-08 01:10 | XMS_ITS | Continuity of Care Document ---
Author Organization [facility] Address [address] [place] [address]- Care Team Providers Care Hyster Machine Operator Name Role Phone Ema CORTEZ, Woody Primary Care Physician [place] [facility] [place](s): 03/29/20 - 04/28/20 [facility] [address] [place] [address]- [facility] Attending Physician: AdmDianne lyons Admitting Physician: Admtr, Ar8 Referring Physician: Admtr, [...] 10/04/19 8:48:53 EST, Route to Pharmacy Electronically, [id number], [facility]/pharmacy #1130 Start [...]
--- OUTSIDE RECORDS SUMMARY | 2024-09-08 01:10 | XMS_ITS | Continuity of Care Document ---
Author Organization [facility] Address Unknown Care Team Providers Care Medical And Scientific Illustrator Name Role Phone Woody Boo MD Primary Care Physician [place] [facility] [place] Date(s): 09/16/21 - 10/16/21 [facility] Attending Physician: AdmtrDianne Admitting Physician: AdmtrDianne Referring Physician: AdmtrDianne Allergies, Adverse Reactions, Alerts Substance Reaction Severity [...] # 30 tablet, 5 Refills, [facility], 155, cm, 06/22/21 15:06:00 EDT,Height, 100, kg, 06/07/21 2:39:00 EDT, Dry Weight Start Date: 08/31/21 Status: Ordered omeprazole 40 mg oral enteric coated capsule See Instructions, TAKE 1 CAPSULE EVERY DAY BEFORE A MEAL FOR 30 DAYS, # 30 capsule, 2 Refills, [facility], 155, cm, 06/22/21 15:06:00 EDT, Height, 100, [...] 6 Refills, Maintenance, 09/16/21 14:18:00 EDT, Tablet, [facility], Partial fill upon patient request if the prescription is for a schedule I... Start Date: 09/16/21 Stop Date: 04/14/22 Status: Ordered verapamil 40 mg oral tablet 2 tablet, By Mouth, Daily, # 60 tablet, 5 Refills, [facility], 155, cm, 06/22/21 15:06:00 EDT,Height, 100, kg, [...]
--- OUTSIDE RECORDS SUMMARY | 2024-09-08 01:10 | XMS_ITS | Continuity of Care Document ---
Author Organization [facility] Address [address] [place] [address]- Care Team Providers Care Oven Operator Automatic Name Role Phone Ema CORTEZ, Woody Primary Care Physician Encounter [facility] Date(s): 09/26/23 - 11/25/23 [facility] [address] [place] [address]- Attending Physician: Woody Boo MD Allergies, Adverse Reactions, Alerts Substance Reaction Severity Status codeine facial swelling, hives, trouble breathing Active erythromycin facial swelling, dif ficulty breathing swell Active morphine facial swelling, dif ficulty breathing swell Active Tylox facial swelling, difficulty breathing Active Mushrooms facial swelling, difficulty breathing Active Paxlovid rash Active penicillin facial swelling, dif ficulty breathing [...] 0 Refills, Maintenance, 08/27/22 16:44:00 EDT, Gel, [facility]/pharmacy #1130, Partial fill upon patient request [...] 09/26/23 16:31:00 EDT, Route to Pharmacy Electronically, [facility]/pharmacy #[id number], Partial fill upon patient request if the prescription is for a schedule II opioid drug... Start Date: 09/26/23 Status: Ordered omeprazole 40 mg oral enteric coated capsule See Instructions, TAKE 1 CAPSULE BY MOUTH EVERY DAY BEFORE A MEAL, # 90 capsule, 0 Refills, Maintenance, 10/19/23 6:11:00 EST, [facility] STORE 71292, 155, cm, 09/26/23 15:55:00 EDT, Height, 100, kg, 08/07/22 10:52:00 EDT, Dry Weight Start Date: 10/19/23 Status: Ordered Ventolin HFA 108 mcg/inh inhalation aerosol with adapter 2 puffs, Inhalation, Every 6 hours, PRN NEEDED FOR WHEEZING/SHORTNESS OF BREATH, # 18 each, 0 Refills, Maintenance, 10/23/22 13:56:00 EST, [facility], 156, cm, 09/29/22 15:57:00 EDT, Height, 100, kg, 08/07/22 10:52:00 EDT, Dry Weight Start Date: 10/23/22 Status: Ordered verapamil 80 mg oral tablet 1 tablet = 80 mg, By Mouth, Daily, # 90 tablet, 3 Refills, Maintenance, 09/26/23 16:31:00 EDT, Tablet, [facility]/pharmacy #[id number], Partial fill upon patient request [...] Care Member Role: PCP Address: Address: [address] [place] [address] [address] [place] [address]- Name: Shannon Dai RN Position: S RN Member Role: Primary Care Nurse Name: Mady Simental RN Position: S RN Member Role: Primary Care Nurse Name: Lala MELENDEZ, Chayito Position: [facility] Nurse Member Role: Primary Care Nurse Care Team Related Persons Name: MICHELLE BROOKS Address: home [address] [address] Name: STEPHEN BROOKS Address: home [address] [place] [address] Name: PATRICIA BERNARDO Address: home [address] [place] [address]
--- OUTSIDE RECORDS SUMMARY | 2024-09-08 01:10 | XMS_ITS | Continuity of Care Document ---
Author Organization [facility] Address [address] [place] [address]- Care Team Providers Care Tree Cutter Name Role Phone Ema CORTEZ, [facility] Primary Care Physician ( [phone] [place] [facility] [place](s): 10/12/20 - 11/11/20 [facility] [address] [place] [address]- Allergies, Adverse Reactions, Alerts Substance Reaction Severity [...] 1Admin Note: VIS GIVEN TO PATIENT. Medications Diflucan 150 mg oral tablet 1 tablet = 150 mg, By Mouth, Once, may repeat after 72 hours, # 2 tablet, 0 Refills, Soft Stop, 09/13/20 13:38:00 EDT, Tablet, [facility], 157.2, cm, 09/13/20 12:59:00 EDT, Height, 97.8, kg, 12/26/19 13:26:00 EST, Dry Weight Start Date: 09/13/20 Status: Ordered losartan 25 mg oral tablet 1 tablet = 25 mg, By Mouth, Daily, # 30 tablet, 4 Refills, Maintenance, 09/13/20 13:41:00 EDT, Tablet, [facility], 157.2, cm, 09/13/20 12:59:00 EDT, Height, 97.8, kg, 12/26/19 13:26:00 EST, Dry Weight Start Date: 09/13/20 Status: Ordered verapamil 40 mg oral tablet 2 tablet = 80 mg, By Mouth, Daily, # 60 tablet, 2 Refills, Maintenance, 09/02/20 15:51:00 EDT, [facility], 157.2, cm, 06/12/20 10:19:00 EDT, Height, 97.8, kg, 12/26/19 13:26:00 EST, Dry Weight Start Date: 09/02/20 Stop Date: 12/01/20 Status: Ordered Problem List Condition Effective Dates [...]
--- OUTSIDE RECORDS SUMMARY | 2024-09-08 01:10 | XMS_ITS | Continuity of Care Document ---
Author Organization [facility] Address [address] [place] [address]- Care Team Providers Care Play Writer Name Role Phone Ema CROTEZ, Woody Primary Care Physician ( [phone] [place] [facility] [place] 03[place]29[place]20 - 04/05/20 [facility] [address] [place] [address]- [facility] Attending Physician: Dick METAL ROASTER, Nereyda Allergies, Adverse Reactions, Alerts Substance Reaction Severity [...] 10/04/19 8:48:53 EST, Route to Pharmacy Electronically, [id number], [facility]/pharmacy #1130 Start Date: 10/04/19 Stop Date: 10/18/19 Status: Ordered omeprazole 40 mg oral enteric coated capsule 1 capsule = 40 mg, By Mouth, Daily, # 90 capsule, 10 Refills, Maintenance, 12/05/19 9:09:00 EST, ECCapsule, [facility]/pharmacy #1130, 157.2, cm, 12/05/19 8:46:00 EST, Height, [...]
--- OUTSIDE RECORDS SUMMARY | 2024-09-08 01:11 | XMS_ITS | Continuity of Care Document ---
Author Organization [facility] Address [address] [place] [address]- Care Team Providers Care Employment Counselor Name Role Phone Woody Boo MD Primary Care Physician ( [phone] [place] [facility] [place]): 01/14/21 - 01/21/[address] [facility] [address] [place] [address]- Encounter Diagnosis Skin rash(Discharge Diagnosis) - 01/14/21 Attending Physician: Woody Boo MD Allergies, Adverse [...] 4 Refills, Maintenance, 09/13/20 13:41:00 EDT, Tablet, [facility]/pharmacy #1130, 157.2, cm, 09/13/20 12:59:00 EDT, Height, 97.8, kg, 12/26/19 13:26:00 EST, Dry Weight Start Date: 09/13/20 Status: Ordered nystatin topical 472021 u/gm powder 1 application, Topically, 2 times a day, for 14 days, # 60 Gm, 1 Refills, Acute 02/11/21 9:20:00 EDT, 01/14/21 9:20:00 EST, Powder, [facility]/pharmacy #1130, Partial fill upon patient request if [...] Diagnosis Diagnosis Type Effective Dates Health Status Clini dawna Service Informant Skin rash Discharge Diagnosis 01/14/21 Vital Signs Most recent to oldest [Reference Range]: 1 Height 157.2 cm (01/14/21 9:06 AM) Social History Social History Type Response Smoking Status Current some day smo ker; Other: smoking only a few cigs a week; entered on: 02/14/16 Sex Female
--- OUTSIDE RECORDS SUMMARY | 2024-09-08 01:11 | XMS_ITS | Continuity of Care Document ---
Author Organization [facility] Adult Address [address] [place] [address]- Care Team Providers Care Landscape Architecture Teacher Name Role Phone Woody Boo MD Primary Care Physician [place] [facility] [place](s[place] 12/14/20 - 12/21/20 [facility] Adult [address] [place] [address]- Encounter Diagnosis Hypertension(Discharge Diagnosis) - 12/14/20 Hemiplegic migraine(Discharge Diagnosis) - 12/14/20 Medullary sponge kidney(Discharge Diagnosis) - 12/14/20 Morbid obesity(Discharge Diagnosis) - 12/14/20 GERD (gastroesophageal reflux disease)(Discharge Diagnosis) - 12/14/20 Left foot pain(Discharge Diagnosis) - 12/14/20 Attending Physician: Woody Boo MD Allergies, Adverse [...] Status Clinical Service Informant Hypertension Discharge Diagnosis 12/14/20 Hemiplegic migraine Discharge Diagnosis 12/14/20 Medullary sponge kidney Discharge Diagnosis 12/14/20 Morbid obesity Discharge Diagnosis 12/14/20 GERD (gastroesophageal reflux disease) Discharge Diagnosis 12/14/20 Left foot pain Discharge Diagnosis 12/14/20 Vital Signs Most recent to oldest [Reference Range]: 1 Height 157.2 cm (12/14/20 10:29 AM) Weight 98.9 kg (12/14/20 10:29 AM) Oxygen Saturation [94-100 %] 96 % (12/14/20 10:29 AM) Pulse Rate [55-90 bpm] 104 bpm *H* (12/14/20 10:29 AM) Body Mass Index [18.5-24.99] 40.02 *>HHI* (12/14/20 10:29 AM) Blood Pressure [90-138/55-84 mm Hg] 130/ 76mm Hg (12/14/20 10:29 AM) Mode of Delivery (Oxygen) Room air (12/14/20 10:29 AM) Blood pressure sites Arm, left (12/14/20 10:29 AM) Weight Obtained Via Standing scale (12/14/20 10:29 AM) Social History Social History Type Response Smoking Status Current some day smo ker; Other: smoking only a few cigs a week; entered on: 02/14/16 Sex Female
--- OUTSIDE RECORDS SUMMARY | 2024-09-08 01:11 | XMS_ITS | Continuity of Care Document ---
Author Organization [facility] Adult Address [address] [place] [address]- Care Team Providers Care Lining Strap Closer Name Role Phone Ema CORTEZ, Woody Primary Care Physician [place] [facility] [place] 09/29/22 - 10/29/22 [facility] [address] [place] [address]- Attending Physician: Admtr, Ar8 Admitting Physician: Admtr, Ar8 Referring Physician: Admtr, Ar8 Allergies, Adverse Reactions, Alerts Substance Reaction Severity Status codeine facial swelling, hives, trouble breathing Active penicillin facial swelling, dif ficulty breathing swell Active sulfa drugs facial swelling, dif ficulty breathing swell Active erythromycin facial swelling, dif ficulty [...] 0 Refills, Maintenance, 08/27/22 16:44:00 EDT, Gel, [facility]/pharmacy #1130, Partial fill upon patient request if the prescript... Start Date: 08/27/22 Status: Ordered losartan 25 mg oral tablet 2 tablet = 50 mg, By Mouth, Daily, # 30 tablet, 5 Refills, 08/21/22 10:34:00 EDT, [facility]/pharmacy #1130, 156, cm, 08/09/22 8:36:00 EDT, Height, 100, kg, 08/07/22 10:52:00 EDT, Dry Weight Start Date: 08/21/22 Status: Ordered omeprazole 40 mg oral enteric coated capsule See Instructions, TAKE 1 CAPSULE EVERY DAY BEFORE A MEAL FOR 30 DAYS, # 30 capsule, 2 Refills, Maintenance, 08/06/22 10:11:00 EDT, [facility], 155, cm, 07/14/22 9:07:00 EDT, Height, 100, kg, 06/07/21 2:39:00 EDT, Dry Weight Start Date: 08/06/22 Status: Ordered predniSONE 10 mg oral tablet See Instructions, 4 tablet By Mouth Daily for 3 days, 3 tabs for 3 days, 2 tabs for 3 days, 1 tab for 3 days, # 30 tablet, 0 Refills, Maintenance, 09/29/22 16:41:00 EDT, [facility]/pharmacy #1130, Partial fill upon patient request if the prescription is for... Start Date: 09/29/22 Status: Ordered Ventolin HFA 108 mcg/inh inhalation aerosol with adapter 2 puffs, Inhalation, Every 6 hours, PRN NEEDED FOR WHEEZING/SHORTNESS OF BREATH, # 18 each, 0 Refills, Maintenance, 10/23/22 13:56:00 EST, [facility], 156, cm, 09/29/22 15:57:00 EDT, Height, 100, kg, 08/07/22 10:52:00 EDT, Dry Weight Start Date: 10/23/22 Status: Ordered verapamil 40 mg oral tablet 2 tablet, By Mouth, Daily, # 60 tablet, 5 Refills, Maintenance, 10/06/22 13:05:00 EST, [facility], 156, cm, 09/29/22 15:57:00 EDT, Height, 100, [...] Care Nurse Name: Woody Boo MD Position: [facility] Primary Care Physician Member Role: PCP Address: Address: [address] [place] [address]- Name: Shannon Dai RN Position: S RN Member Role: Primary Care Nurse Name: Mady Simental RN Position: S RN Member Role: Primary Care Nurse Name: Meek Shin RN Position: S RN Member Role: Primary Care Nurse Name: Chayito Reeves RN Position: [facility] AMB Nurse Member Role: Primary Care Nurse Care Team Related Persons Name: MICHELLE BROOKS Address: home [address] [address] Name: STEPHEN BROOKS Address: home [address] [place] [address] Name: PATRICIA BERNARDO Address: home [address] [place] [address]
--- OUTSIDE RECORDS SUMMARY | 2024-09-08 01:11 | XMS_ITS | Continuity of Care Document ---
Author Organization [facility] Address [address] [place] [address]- Care Team Providers Care National Sales Manager Name Role Phone Ema CORTEZ, Woody Primary Care Physician Encounter [facility] Date(s): 09/21/23 - 01/19/24 [facility] [address] [place], [place] [address] Attending Physician: Kade CORTEZ, Burt Patrick Referring Physician: Ermelinda Charlton Allergies, Adverse Reactions, Alerts Substance Reaction Severity [...] 0 Refills, Maintenance, 08/27/22 16:44:00 EDT, Gel, [facility]/pharmacy #[id number], Partial fill upon patient request if the [...] 09/26/23 16:31:00 EDT, Route to Pharmacy Electronically, [facility]/pharmacy #[id number], Partial fill upon patient request if the prescription is for a schedule II opioid drug... Start Date: 09/26/23 Status: Ordered omeprazole 40 mg oral enteric coated capsule See Instructions, TAKE 1 CAPSULE BY MOUTH EVERY DAY BEFORE A MEAL, # 90 capsule, 0 Refills, Maintenance, 10/19/23 6:11:00 EST, [facility], 155, cm, 09/26/23 15:55:00 EDT, Height, 100, kg, 08/07/22 10:52:00 EDT, Dry Weight Start Date: 10/19/23 Status: Ordered Ventolin HFA 108 mcg/inh inhalation aerosol with adapter 2 puffs, Inhalation, Every 6 hours, PRN NEEDED FOR WHEEZING/SHORTNESS OF BREATH, # 18 each, 0 Refills, Maintenance, 10/23/22 13:56:00 EST, [facility], 156, cm, 09/29/22 15:57:00 EDT, Height, 100, kg, 08/07/22 10:52:00 EDT, Dry Weight Start Date: 10/23/22 Status: Ordered verapamil 80 mg oral tablet 1 tablet = 80 mg, By Mouth, Daily, # 90 tablet, 3 Refills, Maintenance, 09/26/23 16:31:00 EDT, Tablet, [facility]/pharmacy #[id number], Partial fill upon patient request if [...] Rita Mccall RN Position: [facility] ED RN W/OE and Tasks Member Role: Primary Care Nurse Name: Woody Boo MD Position: [facility] Physician - Primary Care Member Role: PCP Address: [facility] [address] [place] [address]- Name: Shannon Dai RN Position: S RN Member Role: Primary Care Nurse Name: Mady Simental RN Position: [facility] RN Member Role: Primary Care Nurse Name: Chayito Reeves RN Position: [facility] Nurse Member Role: Primary Care Nurse Care Team Related Persons Name: CECILIA MICHELLE Address: home [address] [address] Name: STEPHEN BROOKS Address: home [address] [place] [address] Name: PATRICIA BERNARDO Address: home [address] [place] [address]
--- OUTSIDE RECORDS SUMMARY | 2024-09-08 01:11 | XMS_ITS | Continuity of Care Document ---
Author Organization [facility] Adult Address [address] [place] [address]- Care Team Providers Care Contact Center Engineer Name Role Phone Ema CORTEZ, Woody Primary Care Physician Encounter [facility] Date(s): 06/09/21 - 07/09/21 [facility] Adult [address] [place] [address]- Allergies, Adverse Reactions, Alerts Substance Reaction Severity [...] Refills, Soft Stop, 06/20/21 12:02:00 EDT, Tablet, [facility]/pharmacy #1130, Partial fill upon patient request if the prescription is for a schedule II opioid... Start Date: 06/20/21 Status: Ordered losartan 25 mg oral tablet 1 tablet = 25 mg, By Mouth, Daily, # 30 tablet, 5 Refills, Maintenance, 01/31/21 18:36:00 EST, Tablet, [facility]/pharmacy #1130, 157.2, cm, 01/14/21 9:06:00 EST, Height, 97.8, kg, 12/26/19 13:26:00 EST, Dry Weight Start Date: 01/31/21 Status: Ordered omeprazole 40 mg oral enteric coated capsule See Instructions, TAKE 1 CAPSULE EVERY DAY BEFORE A MEAL FOR 30 DAYS, # 30 capsule, 2 Refills, Maintenance, [facility], 155, cm, 06/07/21 12:07:00 EDT, Height, 100, [...]
--- OUTSIDE RECORDS SUMMARY | 2024-09-08 01:11 | XMS_ITS | Continuity of Care Document ---
Author Organization [facility] Adult Address [address] [place] [address]- Care Team Providers Care Electrician Rectifier Maintenance Name Role Phone Woody Boo MD Primary Care Physician Encounter [facility] Date(s): 09/13/20 - 09/20/20 [facility] [address] [place] [phone]- [facility] Encounter Diagnosis Community acquired pneumonia(Discharge Diagnosis) - 09/13/20 Cough(Discharge Diagnosis) - 09/13/20 Yeast vaginitis(Discharge Diagnosis) - 09/13/20 Hypertension(Discharge Diagnosis) - 09/13/20 Wheezing(Discharge Diagnosis) - 09/13/20 Attending Physician: Not on Staff, Attending MD Referring Physician: Woody Boo MD Allergies, [...] Refills, Soft Stop, 09/13/20 13:38:00 EDT, Tablet, [facility]/pharmacy #1130, 157.2, cm, 09/13/20 12:59:00 EDT, Height, 97.8, kg, 12/26/19 13:26:00 EST, Dry Weight Start Date: 09/13/20 Status: Ordered losartan 25 mg oral tablet 1 tablet = 25 mg, By Mouth, Daily, # 30 tablet, 4 Refills, Maintenance, 09/13/20 13:41:00 EDT, Tablet, [facility]/pharmacy #1130, 157.2, cm, 09/13/20 12:59:00 EDT, Height, 97.8, kg, 12/26/19 13:26:00 EST, Dry Weight Start Date: 09/13/20 Status: Ordered verapamil 40 mg oral tablet 2 tablet = 80 mg, By Mouth, Daily, # 60 tablet, 2 Refills, Maintenance, 09/02/20 15:51:00 EDT, [facility]/pharmacy #[id number], 157.2, cm, 06/12/20 10:19:00 EDT, Height, [...] Effective Dates Health Status Clinical Service Informant Community acquired pneumonia Discharge Diagnosis 09/13/20 Cough Discharge Diagnosis 09/13/20 Yeast vaginitis Discharge Diagnosis 09/13/20 Hypertension Discharge Diagnosis 09/13/20 Wheezing Discharge Diagnosis 09/13/20 Vital Signs Most recent to oldest [Reference Range]: 1 2 Height 157.2 cm (09/13/20 1:42 PM) 157.2 cm (09/13/20 12:59 PM) Weight 96.8 kg (09/13/20 12:59 PM) Oxygen Saturation [94-100 %] 100 % (09/13/20 12:59 PM) Pulse Rate [55-90 bpm] 98 bpm *H* (09/13/20 12:59 PM) Body Mass Index [18.5-24.99] 39.17 *>HHI* (09/13/20 12:59 PM) Blood Pressure [90-138/55-84 mm Hg] 144/ 88mm Hg *H* (09/13/20 1:42 PM) 132/88mm Hg (09/13/20 12:59 PM) Temperature [96.8-100.4 DegF] 99.2 DegF (09/13/20 12:59 PM) Mode of Delivery (Oxygen) Room air (09/13/20 12:59 PM) Blood pressure sites Arm, left (09/13/20 1:42 PM) Arm, left (09/13/20 12:59 PM) Temperature Route Oral (09/13/20 12:59 PM) Social History Social History Type Response Smoking Status Current some day smo ker; Other: smoking only a few cigs a week; entered on: 02/14/16 Sex Female
--- OUTSIDE RECORDS SUMMARY | 2024-09-08 01:11 | XMS_ITS | Continuity of Care Document ---
Author Organization [facility] ter Address [address] [place] [address]- Care Team Providers Care Package Car Driver Name Role Phone Woody Boo MD Primary Care Physician Encounter [facility] Date(s): 08/07/22 - 08/07/[address] [address]- Discharge Disposition: A-D/C Walkout Attending Physician: Not [...] 30 tablet, 5 Refills, 03/09/22 15:48:00 EDT, [facility]/pharmacy #1130, 155, cm, 03/08/22 11:00:00 EDT, Height, 100, kg, 06/07/21 2:39:00 EDT, Dry Weight Start Date: 03/09/22 Status: Ordered omeprazole 40 mg oral enteric coated capsule See Instructions, TAKE 1 CAPSULE EVERY DAY BEFORE A MEAL FOR 30 DAYS, # 30 capsule, 2 Refills, Maintenance, 08/06/22 10:11:00 EDT, [facility], 155, cm, 07/14/22 9:07:00 EDT, Height, 100, kg, 06/07/21 2:39:00 EDT, Dry Weight Start Date: 08/06/22 Status: Ordered verapamil 40 mg oral tablet 2 tablet, By Mouth, Daily, # 60 tablet, 2 Refills, [facility], 155, cm, 03/08/22 11:00:00 EDT,Height, 100, kg, 06/07/21 2:39:00 EDT, Dry Weight Start Date: 07/04/22 Status: Ordered Problem List Condition Effective Dates Status Health Status Inform ant Atypical nevi(Confirmed) Active 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 Hemiplegic migraine(Confirmed) Active Hyperlipidemia(Confirmed) Active Hypertension(Confirmed) Active Medullary sponge kidney(Confirmed) Active Obesity(Confirmed) Active Severe obesity(Confirmed) Active Ureterolithiasis(Confirmed) Active Results Radiology Reports * Exam Date Time Procedure Performing Provider Status 08/07/22 11:08 AM Chest 2 Views Frontal and Lat Eddy , Lori; Auth (Verified) Notes: (Chest 2 Views Frontal and Lat) Reason For Exam: Chest Pain;Other: RESULT: Chest 2 Views Frontal and Lat Chest 2 Views Frontal and Lat Hx of Present Illness: Pt to Ed with left sided chest pressure reports it feels like (squeezing pain) ofr 2 days. WAs at urgent care with normal EKG, rec to come here for further eval. Denies SOB; Reason: Other:; Chest Pain; Clinical Question(s): Other: COMPARISON: 04/10/2022 FINDINGS: No acute cardiopulmonary process. Incidental note of right rotator cuff calcific tendinitis. IMPRESSION: No acute abnormality. WSN: [id number] Ordering Physician: Efren Mcmanus Dictated By: Silverio Reaves MD Dictated Date/Time: 08/07/22 11:14 a Reviewed By: Silverio Reaves MD Signed By: Silverio Reaves MD Signed Date/Time: 08/07/22 11:14 am Transcribed By: STEPHANIE Transcribed Date/Time: 08/07/22 11:13 am Vital Signs Most recent to oldest [Reference Range]: 1 2 3 Height 156 cm (08/07/22 10:52 AM) Weight 100 kg (08/07/22 10:52 AM) Oxygen Saturation [94-100 %] 97 % (08/07/22 8:50 PM) 99 % (08/07/22 5:55 PM) 96 % (08/07/22 1:53 PM) Pulse Rate [55-90 bpm] 73 bpm (08/07/22 8:50 PM) 79 bpm (08/07/22 5:55 PM) 76 bpm (08/07/22 1:53 PM) Blood Pressure [90-138/55-84 mm Hg] 119/74mm Hg (08/07/22 8:50 PM) 118/83mm Hg (08/07/22 5:55 PM) 109/73mm Hg (08/07/22 1:53 PM) Respiratory Rate [16-30 br/min] 18 br/min (08/07/22 5:55 PM) 17 br/min (08/07/22 10:52 AM) Temperature [96.8-100.4 DegF] 98.4 DegF (08/07/22 8:50 PM) 99.3 DegF (08/07/22 5:55 PM) 98.2 DegF (08/07/22 1:53 PM) Mode of Delivery (Oxygen) Room air (08/07/22 8:50 PM) Room air (08/07/22 5:55 PM) Room air (08/07/22 1:53 PM) Blood pressure sites Arm, right (08/07/22 8:50 PM) Arm, right (08/07/22 5:55 PM) Arm, right (08/07/22 1:53 PM) Temperature Route Oral (08/07/22 8:50 PM) Oral (08/07/22 5:55 PM) Oral (08/07/22 1:53 PM) Dry Weight 100 kg (08/07/22 10:52 AM) Social History Social History Type Response Smoking Status Current some day smo ker; Other: smoking only a few cigs a week; entered on: 02/14/16 Sex Female Note * BHSPowerscribe , CIS S: TRANSCRIBE Silverio Reaves MD: VERIFY Event Display: Result: Authored Date: Chest 2 Views Frontal and Lat Hx of Present Illness: Pt to Ed with left sided chest pressure reports it feels like (squeezing pain) ofr 2 days. WAs at urgent care with normal EKG, rec to come here for further eval. Denies SOB; Reason: Other:; Chest Pain; Clinical Question(s): Other: COMPARISON: 04/10/2022 FINDINGS: No acute cardiopulmonary process. Incidental note of right rotator cuff calcific tendinitis. IMPRESSION: No acute abnormality. WSN: [id number] Ordering Physician: Efren Mcmanus Dictated By: Silveroi Reaves MD Dictated Date/Time: 08/07/22 11:14 a Reviewed By: Silverio Reaves MD Signed By: Silverio Reaves MD Signed Date/Time: 08/07/22 11:14 am Transcribed By: STEPHANIE Transcribed Date/Time: 08/07/22 11:13 am Care Team Personnel Name: Woody Boo MD Address: [address] [facility] [address] [place], [place] [address]
--- OUTSIDE RECORDS SUMMARY | 2024-09-08 01:11 | XMS_ITS | Continuity of Care Document ---
Author Organization [facility] Address Unknown Care Team Providers Care Assistant Men'S Soccer Coach Name Role Phone Ema CORTEZ, Woody Primary Care Physician Encounter [facility] [place] [facility] Date(s): 09/16/21 - 09/23/21 [facility] Attending Physician: Renetta Wilson MD Referring Physician: John YARD JACKER, Paige Allergies, Adverse Reactions, Alerts Substance Reaction Severity [...] # 30 tablet, 5 Refills, [facility], 155, cm, 06/22/21 15:06:00 EDT,Height, 100, kg, 06/07/21 2:39:00 EDT, Dry Weight Start Date: 08/31/21 Status: Ordered omeprazole 40 mg oral enteric coated capsule See Instructions, TAKE 1 CAPSULE EVERY DAY BEFORE A MEAL FOR 30 DAYS, # 30 capsule, 2 Refills, [facility], 155, cm, 06/22/21 15:06:00 EDT, Height, 100, [...] 09/26/21 15:15:00 EDT, 09/12/21 15:15:00 EDT, Tablet, [facility]/pharmacy #1130, Partial fill upon patient request, 155, cm, 06/22/21 15:06:00 EDT, Height, 100, kg, 06/07/21... Start Date: 09/12/21 Stop Date: 09/26/21 Status: Ordered verapamil 40 mg oral tablet 2 tablet, By Mouth, Daily, # 60 tablet, 5 Refills, [facility], 155, cm, 06/22/21 15:06:00 EDT,Height, 100, kg, [...]
--- OUTSIDE RECORDS SUMMARY | 2024-09-08 01:11 | XMS_ITS | Continuity of Care Document ---
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 Name Role Phone Ema CORTEZ, [facility] Primary Care Physician Encounter [facility] Date(s): 10/19/23 - 11/18/23 [facility] [address] [place] [id number]- Allergies, Adverse Reactions, Alerts Substance Reaction Severity [...] Active Percocet facial swelling, difficulty breathing Active Immunizations Given [...] 0 Refills, Maintenance, 08/27/22 16:44:00 EDT, Gel, [facility]/pharmacy #1130, Partial fill upon patient [...] 09/26/23 16:31:00 EDT, Route to Pharmacy Electronically, [facility]/pharmacy #[id number], Partial fill upon patient request if the prescription is for a schedule II opioid drug... Start Date: 09/26/23 Status: Ordered omeprazole 40 mg oral enteric coated capsule See Instructions, TAKE 1 CAPSULE BY MOUTH EVERY DAY BEFORE A MEAL, # 90 capsule, 0 Refills, Maintenance, 10/19/23 6:11:00 EST, [facility] 158[facility], 155, cm, 09/26/23 15:55:00 EDT, Height, 100, kg, 08/07/22 10:52:00 EDT, Dry Weight Start Date: 10/19/23 Status: Ordered Ventolin HFA 108 mcg/inh inhalation aerosol with adapter 2 puffs, Inhalation, Every 6 hours, PRN NEEDED FOR WHEEZING/SHORTNESS OF BREATH, # 18 each, 0 Refills, Maintenance, 10/23/22 13:56:00 EST, [facility], 156, cm, 09/29/22 15:57:00 EDT, Height, 100, kg, 08/07/22 10:52:00 EDT, Dry Weight Start Date: 10/23/22 Status: Ordered verapamil 80 mg oral tablet 1 tablet = 80 mg, By Mouth, Daily, # 90 tablet, 3 Refills, Maintenance, 09/26/23 16:31:00 EDT, Tablet, [facility], Partial fill upon patient request if the [...] Team Personnel Name: Ana Diaz RN Position: [facility] RN Member Role: Primary Care Nurse Name: Rita Mccall RN Position: [facility] RN Member Role: Primary Care Nurse Name: Woody Boo MD Position: [facility] Physician - Primary Care Member Role: PCP Address: Address: [address] [place] [address]- Name: Shannon Dai RN Position: [facility] RN Member Role: Primary Care Nurse Name: Mady Simental RN Position: S RN Member Role: Primary Care Nurse Name: Chayito Reeves RN Position: [facility] Nurse Member Role: Primary Care Nurse Care Team Related Persons Name: MICHELLE BROOKS Address: home [address] [address] Name: STEPHEN BROOKS Address: home [address] [place] [address] Name: PATRICIA BERNARDO Address: home [address] [place] [address]
--- OUTSIDE RECORDS SUMMARY | 2024-09-08 01:11 | XMS_ITS | Continuity of Care Document ---
Author Organization [facility] ter Address [address] [place] [address]- Care Team Providers Care Lubrication Servicer Name Role Phone Ema CORTEZ, Woody Primary Care Physician Encounter [facility] Date(s): 12/26/19 - 12/26/[address] [address]- [facility] Attending Physician: Trell Pedro MD Allergies, Adverse Reactions, Alerts Substance Reaction [...] 10/04/19 8:48:53 EST, Route to Pharmacy Electronically, [id number], [facility]/pharmacy #[id number] Start Date: 10/04/19 Stop Date: 10/18/19 Status: Ordered Diflucan 150 mg oral tablet 1 tablet = 150 mg, By Mouth, Once, # 1 tablet, 1 Refills, Soft Stop, 11/12/19 11:30:00 EST, Tablet,[facility]/pharmacy #1130, 157.2, cm, 11/12/19 10:54:00 EST, Height, 96.5, kg, 11/12/19 10:54:00 EST, Dry Weight Start Date: 11/12/19 Status: Ordered Dilaudid 2 mg oral tablet 1 tablet = 2 mg, By Mouth, Every 4 hours, PRN as needed for pain, 0 Refills, Maintenance, 10/22/19 18:53:33 EST, Tablet, Partial fill upon patient request Start Date: 10/22/19 Status: Ordered -Gastroview 66%-10% oral and rectal solution See Instructions, follow instructions provided, # 1 each, 0 Refills, Maintenance, 12/26/19 13:45:00EST, [facility], follow instructions provided, 157.2, cm, 12/26/19 13:26:00 EST, Height, 97.8, kg, 12/26/19 13:26:00 EST, Dry Weight Start Date: 12/26/19 Status: Ordered omeprazole 40 mg oral enteric coated capsule 1 capsule = 40 mg, By Mouth, Daily, # 90 capsule, 10 Refills, Maintenance, 12/05/19 9:09:00 EST, ECCapsule, [facility], 157.2, cm, 12/05/19 8:46:00 EST, Height, [...]
--- OUTSIDE RECORDS SUMMARY | 2024-09-08 01:11 | XMS_ITS | Continuity of Care Document ---
Author Organization [facility] ter Address [address] [place] [address]- Care Team Providers Care Anime Designer Name Role Phone Woody Boo MD Primary Care Physician Encounter [facility] [place] [place] Date(s): 04/15/21 - 04/15/[address] [address]- Encounter Diagnosis Kidney stone on right side(Final) - 04/15/21 Discharge Disposition: A-D/C Home Attending Physician: Jimy Senior MD Admitting Physician: Jimy Senior MD Referring Physician: Not on Staff, Referring [...] 04/15/21 18:50:00 EDT, Route to Pharmacy Electronically, [facility]/pharmacy #1130, Partial fill upon patient... Start Date: 04/15/21 Stop Date: 04/29/21 Status: Ordered Dilaudid 2 mg oral tablet 1 tablet = 2 mg, By Mouth, Every 4 hours, PRN Pain , Severe, for 7 days, # 5 tablet, 0 Refills, Acute 04/22/21 18:49:00 EDT, 04/15/21 18:49:00 EDT, Tablet, [facility]/pharmacy #1130, Partial fill upon patient request if the prescription is for a schedule II... Start Date: 04/15/21 Stop Date: 04/22/21 Status: Ordered ibuprofen 600 mg oral tablet 600 mg, 1, tablet, By Mouth, Every 6 hours, PRN, for 7 days, # 40 tablet, Refills 0, Tot. Refills 0, Acute 04/22/21 18:50:00 EDT, Pain , Moderate, 04/15/21 18:50:00 EDT, Route to Pharmacy Electronically, [facility]/pharmacy #1130, Partial fill upon patient r... Start [...] 04/22/21 18:48:00 EDT, 04/15/21 18:48:00 EDT, Tablet, [facility]/pharmacy #1130, Partial [...] Most recent to oldest [Reference Range]: 1 Weight 98 kg (04/15/21 3:15 PM) Oxygen Saturation [94-100 %] 99 % (04/15/21 3:15 PM) Pulse Rate [55-90 bpm] 80 bpm (04/15/21 3:15 PM) Blood Pressure [90-138/55-84 mm Hg] 126/ 81mm Hg (04/15/21 3:15 PM) Respiratory Rate [16-30 br/min] 18 br/mi n (04/15/21 3:15 PM) Temperature [96.8-100.4 DegF] 98.5 DegF (04/15/21 3:15 PM) Mode of Delivery (Oxygen) Room air (04/15/21 3:15 PM) Blood pressure sites Arm, right (04/15/21 3:15 PM) Temperature Route Oral (04/15/21 3:15 PM) Dry Weight 98 kg (04/15/21 3:15 PM) Social History Social History Type Response Smoking Status Current some day smo ker; Other: smoking only a few cigs a week; entered on: 02/14/16 Sex Female
--- OUTSIDE RECORDS SUMMARY | 2024-09-08 01:11 | XMS_ITS | Continuity of Care Document ---
Author Organization [facility] Adult Address [address] [place] [address]- Care Team Providers Care New Order Clerk Name Role Phone Ema CORTEZ, Woody Primary Care Physician Encounter [facility] [place] Date(s): 02/18/21 - 03/20/21 [facility] Adult [address] [place] [address]- Allergies, Adverse Reactions, Alerts Substance Reaction Severity [...]
--- OUTSIDE RECORDS SUMMARY | 2024-09-08 01:11 | XMS_ITS | Continuity of Care Document ---
Author Organization [facility] Address [address] [place] [address]- Care Team Providers Care Tool Liaison Name Role Phone Woody Boo MD Primary Care Physician [facility]counter [facility] Date(s): 06/01/23 - 08/22/[address] [id number] Attending Physician: León Dillard MD Admitting Physician: León Dillard MD Referring Physician: eLón Dillard MD Allergies, Adverse Reactions, Alerts Substance Reaction Severity Status codeine facial swelling, hives, trouble breathing Active Paxlovid rash Active erythromycin facial swelling, [...] 0 Refills, Maintenance, 08/14/23 12:53:00 EDT, Powder, [facility]/pharmacy #[id number], Give whichever brand is covered. Partial fill upon patient request if the prescription is for a schedule II opioid... Start Date: 08/14/23 Status: Ordered albuterol CFC free 90 mcg/inh inhalation aerosol 2, puffs, Inhalation, Every 4 hours, PRN, or cough, # 1 each, Refills 0, Tot. Refills 0, Maintenance, 05/08/23 13:47:00 EDT, Route to Pharmacy Electronically, [id number], [facility]/pharmacy #[id number], 156, cm, 05/08/23 13:27:00 EDT, He... Start Date: 05/08/23 Stop Date: 06/07/23 Status: Ordered benzonatate 200 mg oral capsule 1 capsule = 200 mg, By Mouth, 3 times a day, PRN as needed for cough, for 14 days, # 42 capsule, 0 Refills, Acute 08/28/23 12:53:00 EDT, 08/14/23 12:53:00 EDT, Capsule, [facility]/pharmacy #[id number], Partial fill upon patient request if the prescription is for a... Start Date: 08/14/23 Stop Date: 08/28/23 Status: Ordered diclofenac 1% topical gel 1 application, Topically, 4 times a day, PRN Pain , Mild, not to exceed 8 grams/day/single joint ofupper extremities, # 100 Gm, 0 Refills, Maintenance, 08/27/22 16:44:00 EDT, Gel, [facility]/pharmacy #1130, Partial fill upon patient request if the prescript... Start Date: 08/27/22 Status: Ordered Diflucan 150 mg oral tablet 1 tablet = 150 mg, By Mouth, Once, # 1 tablet, 0 Refills, Soft Stop, 03/19/23 10:27:00 EDT, Tablet,[facility]/pharmacy #1130, Partial fill upon patient request [...] Refills, Maintenance, 05/10/23 12:47:00 EDT, [facility], 156, cm, 05/08/23 13:27:00 EDT, Height, 100, kg, 08/07/22 10:52:00 EDT, Dry Weight Start Date: 05/10/23 Status: Ordered ProAir HFA 90 mcg/inh inhalation aerosol with adapter 2, puffs, Inhalation, Every 4 hours, PRN, # 8.5 Gm, Refills 0, Tot. Refills 0, Maintenance, 03/29/23 13:11:00 EDT, Aerosol, Route to Pharmacy Electronically, [id number], [facility]/pharmacy #1130, 156, cm, 03/29/23 12:30:00 EDT, Hei... Start Date: 03/29/23 Status: Ordered Ventolin HFA 108 mcg/inh inhalation aerosol with adapter 2 puffs, Inhalation, Every 6 hours, PRN NEEDED FOR WHEEZING/SHORTNESS OF BREATH, # 18 each, 0 Refills, Maintenance, 10/23/22 13:56:00 EST, [facility], 156, cm, 09/29/22 15:57:00 EDT, Height, 100, kg, 08/07/22 10:52:00 EDT, Dry Weight Start Date: 10/23/22 Status: Ordered verapamil 40 mg oral tablet 2 tablet, By Mouth, Daily, # 180 tablet, 1 Refills, Maintenance, 04/05/23 13:32:00 EDT, [facility], 156, cm, 03/29/23 12:30:00 EDT, Height, 100, [...] Primary Care Member Role: PCP Address: Address: [address] [place] [address] [address] [place], [place] [address] Name: Shannon Dai RN Position: [facility] RN Member Role: Primary Care Nurse Name: Mady Simental RN Position: [facility] RN Member Role: Primary Care Nurse Name: Chayito Reeves RN Position: [facility] AMB Nurse Member Role: Primary Care Nurse Name: León Dillard MD Position: [facility] Physician - Urology Med Service: Urology Member Role: Referring Physician Address: Address: [address] [place] [address] [address] [facility] [place] [address]- Care Team Related Persons Name: MICHELLE BROOKS Address: home [address] [address] Name: STEPHEN BROOKS Address: home [address] [place] [address] Name: PATRICIA BERNARDO Address: home [address] [place] [address]
--- OUTSIDE RECORDS SUMMARY | 2024-09-08 01:11 | XMS_ITS | Continuity of Care Document ---
Author Organization [facility] Adult Address [address] [place] [address]- Care Team Providers Care Drilling Manager Name Role Phone Eam CORTEZ, Woody Primary Care Physician Encounter [facility] Date(s): 08/31/23 - 09/07/[address] [address]- Encounter Diagnosis Recurrent URI (upper respiratory infection)(Discharge Diagnosis) - 08/31/23 Depression(Discharge Diagnosis) - 08/31/23 Attending Physician: Ermelinda Charlton Referring Physician: Aaron CORTEZ, [facility] Allergies, Adverse Reactions, Alerts Substance Reaction Severity [...] 0 Refills, Maintenance, 08/14/23 12:53:00 EDT, Powder, [facility]/pharmacy #[id number], Give whichever brand is covered. Partial fill upon patient request if the prescription is for a schedule II opioid... Start Date: 08/14/23 Status: Ordered albuterol CFC free 90 mcg/inh inhalation aerosol 2, puffs, Inhalation, Every 4 hours, PRN, or cough, # 1 each, Refills 0, Tot. Refills 0, Maintenance, 05/08/23 13:47:00 EDT, Route to Pharmacy Electronically, [id number], [facility]/pharmacy #[id number], 156, cm, 05/08/23 13:27:00 EDT, He... Start Date: 05/08/23 Stop Date: 06/07/23 Status: Ordered diclofenac 1% topical gel 1 application, Topically, 4 times a day, PRN Pain , Mild, not to exceed 8 grams/day/single joint ofupper extremities, # 100 Gm, 0 Refills, Maintenance, 08/27/22 16:44:00 EDT, Gel, [facility]/pharmacy #1130, Partial fill upon patient request if the prescript... Start Date: 08/27/22 Status: Ordered fluconazole 150 mg oral tablet 1 tablet = 150 mg, By Mouth, Once, repeat dose if still having symptoms in 72 hours, # 2 tablet, 0 Refills, Soft Stop, 08/31/23 12:04:00 EDT, Tablet, [facility]/pharmacy #[id number], Partial fill upon patient request if the prescription is for a schedule II opioid... Start Date: 08/31/23 Status: Ordered losartan 25 mg oral tablet 2 tablet = 50 mg, By Mouth, Daily, for 30 days, # 60 tablet, 6 Refills, Physician Stop 02/19/24 16:33:00 EDT, 07/24/23 16:33:00 EDT, [facility]/pharmacy #[id number], 155, cm, 05/10/23 23:27:00 EDT, Height, 100, kg, 08/07/22 10:52:00 EDT, Dry Weight Start Date: 07/24/23 Stop Date: 02/19/24 Status: Ordered omeprazole 40 mg oral enteric coated capsule See Instructions, TAKE 1 CAPSULE BY MOUTH EVERY DAY BEFORE A MEAL, # 90 capsule, 1 Refills, Maintenance, 05/10/23 12:47:00 EDT, [facility] STORE 38713, 156, cm, 05/08/23 13:27:00 EDT, Height, 100, kg, 08/07/22 10:52:00 EDT, Dry Weight Start Date: 05/10/23 Status: Ordered ProAir HFA 90 mcg/inh inhalation aerosol with adapter 2, puffs, Inhalation, Every 4 hours, PRN, # 8.5 Gm, Refills 0, Tot. Refills 0, Maintenance, 03/29/23 13:11:00 EDT, Aerosol, Route to Pharmacy Electronically, [id number], [facility]/pharmacy #1130, 156, cm, 03/29/23 12:30:00 EDT, Hei... Start Date: 03/29/23 Status: Ordered Ventolin HFA 108 mcg/inh inhalation aerosol with adapter 2 puffs, Inhalation, Every 6 hours, PRN NEEDED FOR WHEEZING/SHORTNESS OF BREATH, # 18 each, 0 Refills, Maintenance, 10/23/22 13:56:00 EST, [facility], 156, cm, 09/29/22 15:57:00 EDT, Height, 100, kg, 08/07/22 10:52:00 EDT, Dry Weight Start Date: 10/23/22 Status: Ordered verapamil 40 mg oral tablet 2 tablet, By Mouth, Daily, # 180 tablet, 1 Refills, Maintenance, 04/05/23 13:32:00 EDT, [facility], 156, cm, 03/29/23 12:30:00 EDT, Height, 100, [...] Effective Dates Health Status Clinical Service Informant Recurrent URI (upper respiratory infection) Discharge Diagnosis 08/31/23 Depression Discharge Diagnosis 08/31/23 Vital Signs Most recent to oldest [Reference Range]: 1 Height 155 cm (08/31/23 11:36 AM) Weight 101.2 kg (08/31/23 11:36 AM) Oxygen Saturation [94-100 %] 97 % (08/31/23 11:36 AM) Pulse Rate [55-90 bpm] 94 bpm *H* (08/31/23 11:36 AM) Body Mass Index [18.5-24.99 kg/m2] 42.12 kg/m2 *>HHI* (08/31/23 11:36 AM) Blood Pressure [90-138/55-84 mm Hg] 129/ 75mm Hg (08/31/23 11:36 AM) Respiratory Rate [16-30 br/min] 17 br/mi n (08/31/23 11:36 AM) Temperature [96.8-100.4 DegF] 97.5 DegF (08/31/23 11:36 AM) Mode of Delivery (Oxygen) Room air (08/31/23 11:36 AM) Blood pressure sites Arm, right (08/31/23 11:36 AM) Temperature Route Temporal (08/31/23 11:36 AM) Weight Obtained Via Standing scale (08/31/23 11:36 AM) Social History Social History Type Response Tobacco Other: Quit June 27. Sex Female Note * Christian Stevenson: PERFORM, SIGN, VERIFY Event Display: Patient Education/Instruction Authored Date: [id number] [facility] Clinical Summary Name CHRISTIAN BROOKS Age 48 Years 1975 PCP Woody Boo MD PCP Visit Date 08/31/2023 11:34:00 Additional Instructions: Scheduled Appointments?? Future Appointments ?*[facility] [address],??[address] ?Phone:??--?Fax:??-- ?Appt. Date:??09/26/2023?3:45 PM ?Scheduled Provider:??Woody Boo MD Follow-Up Instructions ?? Diagnosis Depression, unspecified; Acute upper respiratory infection, unspecified Medications: Please continue your medications until treatment is completed or stopped by your provider. Discuss any questions related to medications with your provider. Medications to Continue Taking That Have [facility]anged [id number] [address] [place] [phone], [phone] - Fluconazole (fluconazole 150 mg oral tablet) 1 tab(s) Oral once. repeat dose if still having symptoms in 72 hours. Refills: 0. Next Dose: Medications to Continue with No Changes These medications were not printed or sent to your pharmacy Albuterol (albuterol 90 mcg/inh inhalation powder) 2 puff(s) Inhalation every 6 hours as needed. Refills: 0. Next Dose: Albuterol (albuterol CFC free 90 mcg/inh inhalation aerosol) 2 puff(s) Inhalation every 4 hours as needed Wheezing/Shortness of Breath for 30 Days. or cough. Refills: 0. Next Dose: Albuterol (ProAir HFA 90 mcg/inh inhalation aerosol with adapter) 2 puff(s) Inhalation every 4 hours as needed Wheezing/Shortness of Breath. Refills: 0. Next Dose: Albuterol (Ventolin HFA 108 mcg/inh inhalation aerosol with adapter) 2 puff(s) Inhalation every 6 hours as needed NEEDED FOR WHEEZING/SHORTNESS OF BREATH. Refills: 0. Next Dose: Diclofenac Topical (diclofenac 1% topical gel) 1 [...] orders Vital Signs Height 155 cm Weight 101.2 kg BMI 42.12 kg/m2 Blood Pressure 129 mm Hg/75 mm Hg Temperature 97.5 DegF Pulse Rate 94 bpm Respiratory Rate 17 br/min 02 Sat Mode of Delivery 97 %/Room air You can now view a summary of your hospital visit from the comfort of your home through a free online portal called [employer]. [employer] is a website that allows you to securely view your medical information including discharge summary, medications and follow-up visits. ??You can alsosend a secure electronic message to your doctor???s office to request appointments, renew medications or just ask a question. You can enroll at [email or web address] or register during your next office visit. [...] primary care provider, you may find a [facility] provider by calling [facility] [employer] Document Management software Link at [phone]. [facility], in keeping with [facility] guidance, no longer requires face masks [...] Care Nurse Name: Woody Boo MD Position: [facility] Physician - Primary Care Member Role: PCP Address: Address: [address] [place] [address] [address] Name: Shannon Dai RN Position: S RN Member Role: Primary Care Nurse Name: Mady Simental RN Position: [facility] RN Member Role: Primary Care Nurse Name: Chayito Reeves RN Position: [facility] AMB Nurse Member Role: Primary Care Nurse Care Team Related Persons Name: MICHELLE BROOKS Address: home [address] [address] Name: STEPHEN BROOKS Address: home [address] [place] [address] Name: PATRICIA BERNARDO Address: home [address] [place] [address]
--- OUTSIDE RECORDS SUMMARY | 2024-09-08 01:11 | XMS_ITS | Continuity of Care Document ---
Author Organization [facility] Adult Address [address] [place] [address]- Care Team Providers Care Sweet Pickled Fruit Maker Name Role Phone Ema CORTEZ, Woody Primary Care Physician Encounter [facility] Date(s): 11/15/21 - 12/15/21 [facility] Adult [address] [place] [address]- Allergies, Adverse Reactions, Alerts Substance Reaction Severity [...] # 30 tablet, 5 Refills, [facility], 155, cm, 06/22/21 15:06:00 EDT,Height, 100, kg, 06/07/21 2:39:00 EDT, Dry Weight Start Date: 08/31/21 Status: Ordered omeprazole 40 mg oral enteric coated capsule See Instructions, TAKE 1 CAPSULE EVERY DAY BEFORE A MEAL FOR 30 DAYS, # 30 capsule, 2 Refills, [facility], 155, cm, 06/22/21 15:06:00 EDT, Height, 100, [...] Mouth, Daily, # 60 tablet, 5 Refills, [facility], 155, cm, 06/22/21 15:06:00 EDT,Height, 100, kg, [...]
--- OUTSIDE RECORDS SUMMARY | 2024-09-08 01:11 | XMS_ITS | Continuity of Care Document ---
Author Organization [facility] Adult Address [address] [place] [address]- Care Team Providers Care Programming Director Name Role Phone Ema CORTEZ, Woody Primary Care Physician [facility] Date(s): 07/24/23 - 08/23/23 [facility] Adult [address] [place] [address]- Allergies, Adverse Reactions, Alerts Substance Reaction Severity [...] 0 Refills, Maintenance, 08/14/23 12:53:00 EDT, Powder, [facility]/pharmacy #0693, Give whichever brand is covered. Partial fill upon patient request if the prescription is for a schedule II opioid... Start Date: 08/14/23 Status: Ordered albuterol CFC free 90 mcg/inh inhalation aerosol 2, puffs, Inhalation, Every 4 hours, PRN, or cough, # 1 each, Refills 0, Tot. Refills 0, Maintenance, 05/08/23 13:47:00 EDT, Route to Pharmacy Electronically, [id number], [facility]/pharmacy #[id number], 156, cm, 05/08/23 13:27:00 EDT, He... Start Date: 05/08/23 Stop Date: 06/07/23 Status: Ordered benzonatate 200 mg oral capsule 1 capsule = 200 mg, By Mouth, 3 times a day, PRN as needed for cough, for 14 days, # 42 capsule, 0 Refills, Acute 08/28/23 12:53:00 EDT, 08/14/23 12:53:00 EDT, Capsule, [facility]/pharmacy #[id number], Partial fill upon patient request if the prescription is for a... Start Date: 08/14/23 Stop Date: 08/28/23 Status: Ordered diclofenac 1% topical gel 1 application, Topically, 4 times a day, PRN Pain , Mild, not to exceed 8 grams/day/single joint ofupper extremities, # 100 Gm, 0 Refills, Maintenance, 08/27/22 16:44:00 EDT, Gel, [facility]/pharmacy #1130, Partial fill upon patient request if the prescript... Start Date: 08/27/22 Status: Ordered Diflucan 150 mg oral tablet 1 tablet = 150 mg, By Mouth, Once, # 1 tablet, 0 Refills, Soft Stop, 03/19/23 10:27:00 EDT, Tablet,[facility]/pharmacy #1130, Partial fill upon patient request if the prescription is for a schedule II opioid drug., 156, cm, 09/29/22 15:57:00 EDT, Height, 10... Start Date: 03/19/23 Status: Ordered losartan 25 mg oral tablet 2 tablet = 50 mg, By Mouth, Daily, for 30 days, # 60 tablet, 6 Refills, Physician Stop 02/19/24 16:33:00 EDT, 07/24/23 16:33:00 EDT, [facility]/pharmacy #0693, 155, cm, 05/10/23 23:27:00 EDT, Height, 100, kg, 08/07/22 10:52:00 EDT, Dry Weight Start Date: 07/24/23 Stop Date: 02/19/24 Status: Ordered omeprazole 40 mg oral enteric coated capsule See Instructions, TAKE 1 CAPSULE BY MOUTH EVERY DAY BEFORE A MEAL, # 90 capsule, 1 Refills, Maintenance, 05/10/23 12:47:00 EDT, [facility], 156, cm, 05/08/23 13:27:00 EDT, Height, 100, kg, 08/07/22 10:52:00 EDT, Dry Weight Start Date: 05/10/23 Status: Ordered ProAir HFA 90 mcg/inh inhalation aerosol with adapter 2, puffs, Inhalation, Every 4 hours, PRN, # 8.5 Gm, Refills 0, Tot. Refills 0, Maintenance, 03/29/23 13:11:00 EDT, Aerosol, Route to Pharmacy Electronically, [id number], [facility]/pharmacy #1130, 156, cm, 03/29/23 12:30:00 EDT, Hei... Start Date: 03/29/23 Status: Ordered Ventolin HFA 108 mcg/inh inhalation aerosol with adapter 2 puffs, Inhalation, Every 6 hours, PRN NEEDED FOR WHEEZING/SHORTNESS OF BREATH, # 18 each, 0 Refills, Maintenance, 10/23/22 13:56:00 EST, [facility], 156, cm, 09/29/22 15:57:00 EDT, Height, 100, kg, 08/07/22 10:52:00 EDT, Dry Weight Start Date: 10/23/22 Status: Ordered verapamil 40 mg oral tablet 2 tablet, By Mouth, Daily, # 180 tablet, 1 Refills, Maintenance, 04/05/23 13:32:00 EDT, [facility], 156, cm, 03/29/23 12:30:00 EDT, Height, 100, [...] Primary Care Member Role: PCP [facility]: [facility] [address] [place] [address]- Name: Shannon Dai RN Position: S RN Member Role: Primary Care Nurse Name: Mady Simental RN Position: [facility] RN Member Role: Primary Care Nurse Name: Lala MELENDEZ, Chayito Position: [facility] Nurse Member Role: Primary Care Nurse Care Team Related Persons Name: MICHELLE BROOKS Address: home [address] [address] Name: CECILIA STEPHEN Address: home [address] [place] [address] Name: PATRICIA BERNARDO Address: home [address] [place] [address]
--- OUTSIDE RECORDS SUMMARY | 2024-09-08 01:11 | XMS_ITS | Continuity of Care Document ---
Author Organization [facility] Adult Address [address] [place] [address]- Care Team Providers Care Manufacturing Quality Inspector Name Role Phone Ema CORTEZ, Woody Primary Care Physician ( [phone] [facility]counter [facility] Date(s): 09/15/22 - 10/15/22 [facility] Adult [address] [place] [address]- Allergies, Adverse Reactions, Alerts Substance Reaction Severity [...] capsule, 2 Refills, Maintenance, 08/06/22 10:11:00 EDT, [facility], 155, cm, 07/14/22 9:07:00 EDT, Height, 100, kg, 06/07/21 2:39:00 EDT, Dry Weight Start Date: 08/06/22 Status: Ordered predniSONE 10 mg oral tablet See Instructions, 4 tablet By Mouth Daily for 3 days, 3 tabs for 3 days, 2 tabs for 3 days, 1 tab for 3 days, # 30 tablet, 0 Refills, Maintenance, 09/29/22 16:41:00 EDT, [facility]/pharmacy #1130, Partial fill upon patient request if the prescription is for... Start Date: 09/29/22 Status: Ordered verapamil 40 mg oral tablet 2 tablet, By Mouth, Daily, # 60 tablet, 5 Refills, Maintenance, 10/06/22 13:05:00 EST, [facility] 03[facility], 156, cm, 09/29/22 15:57:00 EDT, Height, 100, [...] Care Physician Member Role: PCP Address: Address: [address] [place] [id number] Name: Shannon Dai RN Position: [facility] RN Member Role: Primary Care Nurse Name: Mady Simental RN Position: S RN Member Role: Primary Care Nurse Name: Meek Shin RN Position: [facility] RN Member Role: Primary Care Nurse Name: Chayito Reeves RN Position: [facility] Nurse Member Role: Primary Care Nurse Care Team Related Persons Name: CECILIA MICHELLE Address: home [address] [address] Name: STEPHEN BROOKS Address: home [address] [place] [address] Name: PATRICIA BERNARDO Address: home [address] [place] [address]
--- OUTSIDE RECORDS SUMMARY | 2024-09-08 01:11 | XMS_ITS | Continuity of Care Document ---
Author Organization [facility] Adult Address [address] [place] [address]- Care Team Providers Care Patient Attendant Name Role Phone Woody Boo MD Primary Care Physician [place] [facility] Date(s): 09/12/22 - 09/19/[address] [address]- Encounter Diagnosis COVID-19(Discharge Diagnosis) - 09/12/22 Severe obesity(Discharge Diagnosis) - 09/12/22 Attending Physician: Woody Boo MD Allergies, Adverse [...] Refills, Maintenance, 08/06/22 10:11:00 EDT, [facility], 155, cm, 07/14/22 9:07:00 EDT, Height, 100, kg, 06/07/21 2:39:00 EDT, Dry Weight Start Date: 08/06/22 Status: Ordered verapamil 40 mg oral tablet 2 tablet, By Mouth, Daily, # 60 tablet, 2 Refills, [facility], 155, cm, 03/08/22 11:00:00 EDT,Height, 100, kg, [...] Diagnosis Diagnosis Type Effective Dates Health Status Cl inical Service Informant COVID-19 Discharge Diagnosis 09/12/22 Severe obesity Discharge Diagnosis 09/12/22 Vital Signs Most recent to oldest [Reference Range]: 1 Height 156 cm (09/12/22 1:14 PM) Social History Social History Type Response Tobacco Other: Quit June 27. Sex Female Patient Care team information Personnel Name: [facility] Address: Address: [address]rd Floor [facility] [place], [place] [address]
--- OUTSIDE RECORDS SUMMARY | 2024-09-08 01:11 | XMS_ITS | Continuity of Care Document ---
Author Organization [facility] Adult Address [address] [place] [address]- Care Team Providers Care Roofer Name Role Phone Ema CORTEZ, Woody Primary Care Physician [facility]counter [facility] Date(s): 10/03/22 - 11/02/[address] [address]- Allergies, Adverse Reactions, Alerts Substance Reaction Severity [...] 0 Refills, Maintenance, 08/27/22 16:44:00 EDT, Gel, [facility]/pharmacy #1130, Partial fill upon patient request if the prescript... Start Date: 08/27/22 Status: Ordered losartan 25 mg oral tablet 2 tablet = 50 mg, By Mouth, Daily, # 30 tablet, 5 Refills, 08/21/22 10:34:00 EDT, [facility]/pharmacy #1130, 156, cm, 08/09/22 8:36:00 EDT, Height, 100, kg, 08/07/22 10:52:00 EDT, Dry Weight Start Date: 08/21/22 Status: Ordered omeprazole 40 mg oral enteric coated capsule See Instructions, TAKE 1 CAPSULE EVERY DAY BEFORE A MEAL FOR 30 DAYS, # 30 capsule, 2 Refills, Maintenance, 08/06/22 10:11:00 EDT, [facility], 155, cm, 07/14/22 9:07:00 EDT, Height, 100, [...] each, 0 Refills, Maintenance, 10/23/22 13:56:00 EST, [facility] 96043, 156, cm, 09/29/22 15:57:00 EDT, Height, 100, kg, 08/07/22 10:52:00 EDT, Dry Weight Start Date: 10/23/22 Status: Ordered verapamil 40 mg oral tablet 2 tablet, By Mouth, Daily, # 60 tablet, 5 Refills, Maintenance, 10/06/22 13:05:00 EST, [facility] 98782, 156, cm, 09/29/22 15:57:00 EDT, Height, 100, [...] Care Physician Member Role: PCP Address: Address: [address] [place] [address] [address] [place] [address]- Name: Shannon Dai RN Position: [facility] RN Member Role: Primary Care Nurse Name: Mady Simental RN Position: [facility] RN Member Role: Primary Care Nurse Name: Meek Shin RN Position: [facility] RN Member Role: Primary Care Nurse Name: Chayito Reeves RN Position: [facility] AMB Nurse Member Role: Primary Care Nurse Care Team Related Persons Name: MICHELLE BROOKS Address: home [address] [address] Name: STEPHEN BROOKS Address: home [address] [place] [address] Name: PATRICIA BERNARDO Address: home [address] [place] [address]
--- OUTSIDE RECORDS SUMMARY | 2024-09-08 01:11 | XMS_ITS | Continuity of Care Document ---
Author Organization [facility] Address [address] [place] [address]- Care Team Providers Care Director Business Integration Name Role Phone Ema CORTEZ, Woody Primary Care Physician ( [phone] [facility] Date(s): 09/12/21 - 10/12/21 [facility] Adult [address] [place] [address]- Allergies, Adverse Reactions, Alerts Substance Reaction Severity [...] # 30 tablet, 5 Refills, [facility], 155, cm, 06/22/21 15:06:00 EDT,Height, 100, kg, 06/07/21 2:39:00 EDT, Dry Weight Start Date: 08/31/21 Status: Ordered omeprazole 40 mg oral enteric coated capsule See Instructions, TAKE 1 CAPSULE EVERY DAY BEFORE A MEAL FOR 30 DAYS, # 30 capsule, 2 Refills, [facility], 155, cm, 06/22/21 15:06:00 EDT, Height, 100, [...] Mouth, Daily, # 60 tablet, 5 Refills, [facility], 155, cm, 06/22/21 15:06:00 EDT,Height, 100, kg, [...]
--- OUTSIDE RECORDS SUMMARY | 2024-09-08 01:11 | XMS_ITS | Continuity of Care Document ---
Author Organization [facility] Address [address] [place] [address]- Care Team Providers Care Rock Wool Applicator Name Role Phone Woody Boo MD Primary Care Physician Encounter [facility] Date(s): 03/29/23 - 04/28/23 [facility] [address] [place] [address]- Attending Physician: Admtr, Ar8 Admitting Physician: Admtr, [...] capsule, 0 Refills, Maintenance, 02/07/23 11:02:00 EDT, [facility]/pharmacy #[id number], 156, cm, 09/29/22 15:57:00 EDT, Height, 100, kg, 08/07/22 10:52:00 EDT, Dry Weight Start Date: 02/07/23 Status: Ordered predniSONE 10 mg oral tablet See Instructions, 4 tablet By Mouth Daily for 3 days, 3 tabs for 3 days, 2 tabs for 3 days, 1 tab for 3 days, # 30 tablet, 0 Refills, Maintenance, 09/29/22 16:41:00 EDT, [facility]/pharmacy #[id number], Partial fill upon patient request if the prescription is for... Start Date: 09/29/22 Status: Ordered ProAir HFA 90 mcg/inh inhalation aerosol with adapter 2, puffs, Inhalation, Every 4 hours, PRN, # 8.5 Gm, Refills 0, Tot. Refills 0, Maintenance, 03/29/23 13:11:00 EDT, Aerosol, Route to Pharmacy Electronically, [id number], [facility]/pharmacy #[id number], 156, cm, 03/29/23 12:30:00 EDT, Hei... Start Date: 03/29/23 Status: Ordered Ventolin HFA 108 mcg/inh inhalation aerosol with adapter 2 puffs, Inhalation, Every 6 hours, PRN NEEDED FOR WHEEZING/SHORTNESS OF BREATH, # 18 each, 0 Refills, Maintenance, 10/23/22 13:56:00 EST, [facility] STORE 50412, 156, cm, 09/29/22 15:57:00 EDT, Height, 100, kg, 08/07/22 10:52:00 EDT, Dry Weight Start Date: 10/23/22 Status: Ordered verapamil 40 mg oral tablet 2 tablet, By Mouth, Daily, # 180 tablet, 1 Refills, Maintenance, 04/05/23 13:32:00 EDT, [facility], 156, cm, 03/29/23 12:30:00 EDT, Height, 100, [...] Team Personnel Name: Ana Diaz RN Position: [facility] RN Member Role: Primary Care Nurse Name: Rita Mccall RN Position: S RN Member Role: Primary Care Nurse Name: Woody Boo MD Position: [facility] Physician - Primary Care Member Role: PCP Address: Address: [address] [place] [id number] Name: Shannon Dai RN Position: [facility] RN Member Role: Primary Care Nurse Name: Mady Simental RN Position: [facility] RN Member Role: Primary Care Nurse Name: Chayito Reeves Position: [facility] AMB Nurse Member Role: Primary Care Nurse Care Team Related Persons Name: MICHELLE BROOKS Address: home [address] [address] Name: STEPHEN BROOKS Address: home [address] [place] [address] Name: PATRICIA BERNARDO Address: home [address] [place] [address]
--- OUTSIDE RECORDS SUMMARY | 2024-09-08 01:11 | XMS_ITS | Continuity of Care Document ---
Author Organization [facility] Address [address] [place] [address]- Care Team Providers Care Home Improvement Contractor Name Role Phone Woody Boo MD Primary Care Physician Encounter 08/29/22 - 09/05/22 [facility] [address], [address] [place] [address]- Attending Physician: Silverio Robert MD Admitting Physician: Silverio Robert MD Referring Physician: Silverio Robert MD Allergies, Adverse Reactions, [...] Refills, Maintenance, 08/06/22 10:11:00 EDT, [facility], 155, cm, 07/14/22 9:07:00 EDT, Height, 100, kg, 06/07/21 2:39:00 EDT, Dry Weight Start Date: 08/06/22 Status: Ordered verapamil 40 mg oral tablet 2 tablet, By Mouth, Daily, # 60 tablet, 2 Refills, [facility], 155, cm, 03/08/22 11:00:00 EDT,Height, 100, kg, [...] Care team information Personnel Name: Ema CORTEZ, [facility] Address: Address: [address] [place], [place] [address]
--- OUTSIDE RECORDS SUMMARY | 2024-09-08 01:11 | XMS_ITS | Continuity of Care Document ---
Author Organization [facility] Address [address] [place] [address]- Care Team Providers Care Labor Representative Name Role Phone Ema CORTEZ, Woody Primary Care Physician Encounter [facility] Date(s): 08/27/22 - 09/26/22 [facility] [address] [place], [place] [address] Attending Physician: Admtr, Ar8 Admitting Physician: Admtr, Ar8 Referring Physician: Admtr, Ar8 Allergies, Adverse Reactions, Alerts Substance Reaction Severity Status codeine facial swelling, hives, trouble breathing Active Toradol facial swelling, difficulty breathing Active erythromycin facial [...] Vaccine 02/15/18 Recor ded Measles/Mumps/Rubella Virus Vaccine 12/3/13 Recor ded Measles/Mumps/Rubella Virus Vaccine 05/06/76 Given [...] 0 Refills, Maintenance, 08/27/22 16:44:00 EDT, Gel, [facility]/pharmacy #[id number], Partial fill upon patient request if the prescript... Start Date: 08/27/22 Status: Ordered losartan 25 mg oral tablet 2 tablet = 50 mg, By Mouth, Daily, # 30 tablet, 5 Refills, 08/21/22 10:34:00 EDT, [facility]/pharmacy #1130, 156, cm, 08/09/22 8:36:00 EDT, Height, 100, kg, 08/07/22 10:52:00 EDT, Dry Weight Start Date: 08/21/22 Status: Ordered omeprazole 40 mg oral enteric coated capsule See Instructions, TAKE 1 CAPSULE EVERY DAY BEFORE A MEAL FOR 30 DAYS, # 30 capsule, 2 Refills, Maintenance, 08/06/22 10:11:00 EDT, [facility], 155, cm, 07/14/22 9:07:00 EDT, Height, 100, kg, 06/07/21 2:39:00 EDT, Dry Weight Start Date: 08/06/22 Status: Ordered verapamil 40 mg oral tablet 2 tablet, By Mouth, Daily, # 60 tablet, 2 Refills, [facility] ST[facility] 49501, 155, cm, 03/08/22 11:00:00 EDT,Height, 100, kg, [...] Name: Woody Boo MD Address: Address: [address] [facility] 3rd [address] [place], [place] [address]
--- OUTSIDE RECORDS SUMMARY | 2024-09-08 01:11 | XMS_ITS | Continuity of Care Document ---
Author Organization [facility] Address [address] [place] [address]- Care Team Providers Care Frothing Machine Operator Name Role Phone Woody Boo MD Primary Care Physician Encounter [facility] [place] Date(s): 09/26/23 - 10/03/23 [facility] [address] [place] [address]- Encounter Diagnosis Severe obesity(Discharge Diagnosis) - 09/26/23 GERD (gastroesophageal reflux disease)(Discharge Diagnosis) - 09/26/23 Gout(Discharge Diagnosis) - 09/26/23 Hemiplegic migraine(Discharge Diagnosis) - 09/26/23 Hyperlipidemia(Discharge Diagnosis) - 09/26/23 Hypertension(Discharge Diagnosis) - 09/26/23 Annual physical exam(Discharge Diagnosis) - 09/26/23 Bronchitis, mucopurulent recurrent(Discharge Diagnosis) - 09/26/23 Multiple joint pain(Discharge Diagnosis) - 09/26/23 Attending Physician: Woody Boo MD Allergies, Adverse [...] 09/26/23 16:31:00 EDT, Route to Pharmacy Electronically, [facility]/pharmacy #[id number], Partial fill upon patient request if the prescription is for a schedule II opioid drug... Start Date: 09/26/23 Status: Ordered omeprazole 40 mg oral enteric coated capsule See Instructions, TAKE 1 CAPSULE BY MOUTH EVERY DAY BEFORE A MEAL, # 90 capsule, 1 Refills, Maintenance, 05/10/23 12:47:00 EDT, [facility], 156, cm, 05/08/23 13:27:00 EDT, Height, 100, kg, 08/07/22 10:52:00 EDT, Dry Weight Start Date: 05/10/23 Status: Ordered ondansetron 4 mg oral tablet 1 tablet = 4 mg, By Mouth, Every 8 hours, PRN Nausea & Vomiting, # 10 tablet, 0 Refills, Acute 10/19/23 16:33:00 EST, 09/26/23 16:32:00 EDT, Tablet, [facility]/pharmacy #[id number], Partial fill upon patient request if the prescription is for a schedule II opioid... Start Date: 09/26/23 Stop Date: 10/19/23 Status: Ordered valacyclovir 1 gm oral tablet 1 tablet = 1 Gm, By Mouth, 2 times a day, for 7 days, # 14 tablet, 5 Refills, Acute 11/07/23 16:29:00 EST, 09/26/23 16:29:00 EDT, Tablet, [facility]/pharmacy #[id number], Partial fill upon patient request if the prescription is for a schedule II opioid drug., 155,... Start Date: 09/26/23 Stop Date: 11/07/23 Status: Ordered Ventolin HFA 108 mcg/inh inhalation aerosol with adapter 2 puffs, Inhalation, Every 6 hours, PRN NEEDED FOR WHEEZING/SHORTNESS OF BREATH, # 18 each, 0 Refills, Maintenance, 10/23/22 13:56:00 EST, [facility] STORE 88684, 156, cm, 09/29/22 15:57:00 EDT, Height, 100, kg, 08/07/22 10:52:00 EDT, Dry Weight Start Date: 10/23/22 Status: Ordered verapamil 80 mg oral tablet 1 tablet = 80 mg, By Mouth, Daily, # 90 tablet, 3 Refills, Maintenance, 09/26/23 16:31:00 EDT, Tablet, [facility]/pharmacy #[id number], Partial fill upon patient request if the [...] Effective Dates Health Status Clinical Service Informant Severe obesity Discharge Diagnosis 09/26/23 GERD (gastroesophageal reflux disease) Discharge Diagnosis 09/26/23 Gout Discharge Diagnosis 09/26/23 Hemiplegic migraine Discharge Diagnosis 09/26/23 Hyperlipidemia Discharge Diagnosis 09/26/23 Hypertension Discharge Diagnosis 09/26/23 Annual physical exam Discharge Diagnosis 09/26/23 Bronchitis, mucopurulent recurrent Discharge Diagnosis 09/26/23 Multiple joint pain Discharge Diagnosis 09/26/23 Vital Signs Most recent to oldest [Reference Range]: 1 Height 155 cm (09/26/23 3:55 PM) Weight 104 kg (09/26/23 3:55 PM) Oxygen Saturation [94-100 %] 99 % (09/26/23 3:55 PM) Pulse Rate [55-90 bpm] 80 bpm (09/26/23 3:55 PM) Body Mass Index [18.5-24.99 kg/m2] 43.29 kg/m2 *>HHI* (09/26/23 3:55 PM) Blood Pressure [90-138/55-84 mm Hg] 123/ 84mm Hg (09/26/23 3:55 PM) Mode of Delivery (Oxygen) Room air (09/26/23 3:55 PM) Blood pressure sites Arm, left (09/26/23 3:55 PM) Weight Obtained Via Standing scale (09/26/23 3:55 PM) Social History Social History Type Response Tobacco Other: Quit June 27. Sex Female Note * Christian Stevenson: PERFORM, SIGN, VERIFY Event Display: Patient Education/Instruction Authored Date: [id number] [facility] *[facility] Clinical Summary Name CHRISTIAN BROOKS Age 48 Years 1975 PCP Woody Boo MD PCP Visit Date 09/26/2023 15:41:00 Additional Instructions: Scheduled Appointments?? Future Appointments ?*[place] ?[address]??[place],??[place],??[address] ?Phone:??--?Fax:??-- ?Appt. Date:??12/20/2023?2:20 PM ?Scheduled Provider:??Kade CORTEZ, OWillie Patrick Follow-Up Instructions ?? With: Address: When: Woody Boo [address], [place] [address] Business (1) Comments: 1-2 month follow up in person Diagnosis Encounter for general adult medical examination without abnormal findings; Gout, unspecified; Hyperlipidemia, unspecified; Encounter for screening for diabetes mellitus; Hemiplegic migraine, not intractable, without status migrainosus; Pain in unspecified joint; Morbid (severe) obesity due to excess calories; Gastro- esophageal reflux disease without esophagitis; Encounter for screening for malignant neoplasm of colon; Encounter for other screening for malignant neoplasm of breast; Encounter forscreening for other suspected endocrine disorder; Mucopurulent chronic bronchitis; Essential (primary) hypertension Medications: Please continue your medications until treatment is completed or stopped by your provider. Discuss any questions related to medications with your provider. New Medications [facility]/pharmacy #[id number], [address] [place] [id number], [phone] Ondansetron (ondansetron 4 mg oral tablet) 1 tab(s) Oral every 8 hours as needed Nausea & Vomiting. Refills: 0. Next Dose: Medications to Continue Taking That Have [facility]anged [id number], [address] [place] [id number], [phone] - Losartan (losartan 50 mg oral tablet) 1 tab(s) Oral Daily. Refills: 3. Next Dose: - Verapamil (verapamil 80 mg oral tablet) 1 tab(s) Oral Daily for 90 Days. Refills: 3. Next Dose: [id number], [address], [place] [id number], [phone] - ValACYclovir (valacyclovir 1 gm oral tablet) 1 tab(s) Oral twice a day for 7 Days. Refills: 5. Next Dose: These medications were not printed or sent to your pharmacy - Albuterol (Ventolin HFA 108 mcg/inh inhalation [...] of upper extremities. Refills: 0. Next Dose: Fluticasone (Flovent HFA 110 mcg/inh inhalation aerosol) Next Dose: Omeprazole (omeprazole 40 mg oral enteric coated capsule) TAKE 1 CAPSULE BY MOUTH EVERY DAY BEFORE A MEAL. Refills: 1. Next Dose: No Longer Take the Following Medications Fluconazole (fluconazole 150 mg oral tablet) 1 tab(s) Oral once. repeat dose if still having symptoms in 72 hours. Refills: 0. Allergy Info:?? Paxlovid; Mushrooms; Demerol; Vicodin; Tylox; Percocet; Zofran; Toradol; sulfa drugs; morphine; penicillin; erythromycin; codeine Medications Given This Visit Future Orders ?C Reactive Protein? Order Date:09/26/23?- Complete within?1 days ?Sedimentation Rate? Order Date:09/26/23?- Complete within?1 days ?Lipid Panel? Order Date:09/26/23?- Complete by?09/27/23 ?Hepatic Function Panel? Order Date:09/26/23?- Complete by?09/27/23 ?Urinalysis (Outpt)? Order Date:09/26/23?- Complete by?09/27/23 ?Hemoglobin A1C (Monitoring)? Order Date:09/26/23?- Complete by?09/27/23 ?Basic Metabolic Panel? Order Date:09/26/23?- Complete by?09/27/23 ?TSH with T4 Reflex (Adults Only)? Order Date:09/26/23?- Complete by?09/27/23 ?CBC w/ Differential? Order Date:09/26/23?- Complete by?09/27/23 ?MM Digital Mammo Screening? Order Date:09/26/23?- Complete by?09/27/23 ?CT Chest W/O Contrast? Order Date:09/26/23?- Complete by?09/27/23 ?Rheumatoid Factor Qual? Order Date:09/26/23?- Complete on or after?09/26/23 ?DAYO Screen? Order Date:09/26/23?- Complete on or after?09/26/23 ?Lyme PCR, blood? Order Date:09/26/23?- Complete by?09/27/23 ?Citrulline Peptide (CCP) Ab, IgG? Order Date:09/26/23?- Complete on or after?09/26/23 ?Anti DNA Ab? Order Date:09/26/23?- Complete on or after?09/26/23 Vital Signs Height 155 cm Weight 104 kg BMI 43.29 kg/m2 Blood Pressure 123 mm Hg/84 mm Hg Temperature Pulse Rate 80 bpm Respiratory Rate 02 Sat Mode of Delivery 99 %/Room air You can now view a summary of your hospital visit from the comfort of your home through a free online portal called [employer]. [employer] is a website that allows you to securely view your medical information including discharge summary, medications and follow-up visits. ??You can alsosend a secure electronic message to your doctor???s office to request appointments, renew medications or just ask a question. You can enroll at [email or web address] or register during your next office [...] primary care provider, you may find a [facility] provider by calling [facility] [employer] Link at [phone]. [facility], in keeping with [facility] guidance, no longer requires face masks for [...] Team Personnel Name: Ana Diaz RN Position: [facility] RN Member Role: Primary Care Nurse Name: Rita Mccall RN Position: [facility] RN Member Role: Primary Care Nurse Name: Woody Boo MD Position: [facility] Physician - Primary Care Member Role: PCP Address: Address: [address] [place] [address] [address]rd Floor [place], [place] [address] Name: Shannon Dai RN Position: S RN Member Role: Primary Care Nurse Name: Mady Simental RN Position: S RN Member Role: Primary Care Nurse Name: Chayito Reeves RN Position: [facility] Nurse Member Role: Primary Care Nurse Care Team Related Persons Name: MICHELLE BROOKS Address: home [address] [address] Name: STEPHEN BROOKS Address: home [address] [place] [address] Name: PATRICIA BERNARDO Address: home [address] [place] [address]
--- OUTSIDE RECORDS SUMMARY | 2024-09-08 01:12 | XMS_ITS | Continuity of Care Document ---
Author Organization [facility] Address [address] [place] [address]- Care Team Providers Care Manager Hematology Name Role Phone Ema CORTEZ, Woody Primary Care Physician [facility] Date(s): 03/[facility]22 - 04/07/22 [facility] [address] [address] Attending Physician: Admtr, Dianne Admitting Physician: Admtr, Dianne Referring Physician: Admtr, Ar8 Allergies, Adverse Reactions, [...] 30 tablet, 5 Refills, 03/09/22 15:48:00 EDT, [facility]/pharmacy #1130, 155, cm, 03/08/22 11:00:00 EDT, Height, 100, kg, 06/07/21 2:39:00 EDT, Dry Weight Start Date: 03/09/22 Status: Ordered omeprazole 40 mg oral enteric coated capsule See Instructions, TAKE 1 CAPSULE EVERY DAY BEFORE A MEAL FOR 30 DAYS, # 30 capsule, 1 Refills, [facility], 155, cm, 06/22/21 15:06:00 EDT, Height, 100, kg, 06/07/21 2:39:00 EDT, Dry Weight Start Date: 02/17/22 Status: Ordered verapamil 40 mg oral tablet 2 tablet, By Mouth, Daily, # 60 tablet, 5 Refills, [facility], 155, cm, 06/22/21 15:06:00 EDT,Height, 100, kg, [...]
--- OUTSIDE RECORDS SUMMARY | 2024-09-08 01:12 | XMS_ITS | Continuity of Care Document ---
Author Organization [facility] Address [address] [place] [address]- Care Team Providers Care Flavoring Oil Filterer Name Role Phone Woody Boo MD Primary Care Physician Encounter [facility] Date(s): 06/13/21 - 07/13/[address] [address] Attending Physician: AdmtrDianne Admitting Physician: Admtr, Ar8 Referring Physician: Admtr, [...] Refills, Soft Stop, 06/20/21 12:02:00 EDT, Tablet, [facility]/pharmacy #[id number], Partial fill upon patient request if the prescription is for a schedule II opioid... Start Date: 06/20/21 Status: Ordered losartan 25 mg oral tablet 1 tablet = 25 mg, By Mouth, Daily, # 30 tablet, 5 Refills, Maintenance, 01/31/21 18:36:00 EST, Tablet, [facility]/pharmacy #1130, 157.2, cm, 01/14/21 9:06:00 EST, Height, 97.8, kg, 12/26/19 13:26:00 EST, Dry Weight Start Date: 01/31/21 Status: Ordered omeprazole 40 mg oral enteric coated capsule See Instructions, TAKE 1 CAPSULE EVERY DAY BEFORE A MEAL FOR 30 DAYS, # 30 capsule, 2 Refills, Maintenance, [facility], 155, cm, 06/07/21 12:07:00 EDT, Height, 100, [...]
--- OUTSIDE RECORDS SUMMARY | 2024-09-08 01:12 | XMS_ITS | Continuity of Care Document ---
Author Organization [facility] Address [address] [place] [address]- Care Team Providers Care Weighmaster Name Role Phone Woody Boo MD Primary Care Physician ( [phone] Encounter [facility] Date(s): 07/14/22 - 07/21/[address] [address]- Encounter Diagnosis Severe obesity(Discharge Diagnosis) - 07/14/22 Hypertension(Discharge Diagnosis) - 07/14/22 Hyperlipidemia(Discharge Diagnosis) - 07/14/22 Fatigue(Discharge Diagnosis) - 07/14/22 Attending Physician: Woody Boo MD Allergies, Adverse [...] 30 tablet, 5 Refills, 03/09/22 15:48:00 EDT, [facility]/pharmacy #[id number], 155, cm, 03/08/22 11:00:00 EDT, Height, 100, kg, 06/07/21 2:39:00 EDT, Dry Weight Start Date: 03/09/22 Status: Ordered omeprazole 40 mg oral enteric coated capsule See Instructions, TAKE 1 CAPSULE EVERY DAY BEFORE A MEAL FOR 30 DAYS, # 30 capsule, 2 Refills, [facility], 155, cm, 03/08/22 11:00:00 EDT, Height, 100, kg, 06/07/21 2:39:00 EDT, Dry Weight Start Date: 04/27/22 Status: Ordered verapamil 40 mg oral tablet 2 tablet, By Mouth, Daily, # 60 tablet, 2 Refills, [facility], 155, cm, 03/08/22 11:00:00 EDT,Height, 100, kg, [...] Dates Health Status Cl inical Service Informant Severe obesity Discharge Diagnosis 07/14/22 Hypertension Discharge Diagnosis 07/14/22 Hyperlipidemia Discharge Diagnosis 07/14/22 Fatigue Discharge Diagnosis 07/14/22 Vital Signs Most recent to oldest [Reference Range]: 1 Height 155 cm (07/14/22 9:07 AM) Social History Social History Type Response Smoking Status Current some day smo ker; Other: smoking only a few cigs a week; entered on: 02/14/16 Sex Female Care Team Personnel Name: Ema CORTEZ, [facility] Address: [address] [facility] [address]rd Floor [facility] [place], [place] [address]
--- OUTSIDE RECORDS SUMMARY | 2024-09-08 01:12 | XMS_ITS | Continuity of Care Document ---
Author Organization [facility] Adult Address [address] [place] [address]- Care Team Providers Care Occasional Babysitter Name Role Phone Ema CORTEZ, Woody Primary Care Physician [facility] Date[facility]): 08/[facility]/23 - 09/30/23 [facility] Adult [address] [place] [address]- Allergies, Adverse Reactions, Alerts Substance Reaction Severity Status codeine facial swelling, hives, trouble breathing Active erythromycin facial swelling, dif ficulty breathing swell Active morphine facial swelling, dif ficulty breathing swell Active Demerol difficulty breathing , full facial [...] Pharmacy Electronically, [facility]/pharmacy #[id number], Partial fill upon patient request if the prescription is for a schedule II opioid drug... Start Date: 09/26/23 Status: Ordered omeprazole 40 mg oral enteric coated capsule See Instructions, TAKE 1 CAPSULE BY MOUTH EVERY DAY BEFORE A MEAL, # 90 capsule, 1 Refills, Maintenance, 05/10/23 12:47:00 EDT, [facility], 156, cm, 05/08/23 13:27:00 EDT, Height, 100, kg, 08/07/22 10:52:00 EDT, Dry Weight Start Date: 05/10/23 Status: Ordered ondansetron 4 mg oral tablet 1 tablet = 4 mg, By Mouth, Every 8 hours, PRN Nausea & Vomiting, # 10 tablet, 0 Refills, Acute 10/19/23 16:33:00 EST, 09/26/23 16:32:00 EDT, Tablet, [id number], Partial fill upon patient request if the prescription is for a schedule II opioid... Start Date: 09/26/23 Stop Date: 10/19/23 Status: Ordered valacyclovir 1 gm oral tablet 1 tablet = 1 Gm, By Mouth, 2 times a day, for 7 days, # 14 tablet, 5 Refills, Acute 11/07/23 16:29:00 EST, 09/26/23 16:29:00 EDT, Tablet, [facility], Partial fill upon patient request if the prescription is for a schedule II opioid drug., 155,... Start Date: 09/26/23 Stop Date: 11/07/23 Status: Ordered Ventolin HFA 108 mcg/inh inhalation aerosol with adapter 2 puffs, Inhalation, Every 6 hours, PRN NEEDED FOR WHEEZING/SHORTNESS OF BREATH, # 18 each, 0 Refills, Maintenance, 10/23/22 13:56:00 EST, [facility] STORE 90185, 156, cm, 09/29/22 15:57:00 EDT, Height, 100, kg, 08/07/22 10:52:00 EDT, Dry Weight Start Date: 10/23/22 Status: Ordered verapamil 80 mg oral tablet 1 tablet = 80 mg, By Mouth, Daily, # 90 tablet, 3 Refills, Maintenance, 09/26/23 16:31:00 EDT, Tablet, [id number], Partial fill upon patient request if [...] Care Nurse Name: Woody Boo MD Position: [facility] Physician - Primary Care Member Role: PCP Address: Address: [address] [place] [id number] Name: Shannon Dai RN Position: [facility] RN Member Role: Primary Care Nurse Name: Mady Simental RN Position: [facility] RN Member Role: Primary Care Nurse Name: Chayito Reeves RN Position: [facility] AMB Nurse Member Role: Primary Care Nurse Care Team Related Persons Name: MICHELLE BROOKS Address: home [address] [address] Name: STEPHEN BROOKS Address: home [address] [place] [address] Name: PATRICIA BERNARDO Address: home [address] [place] [address]
--- OUTSIDE RECORDS SUMMARY | 2024-09-08 01:12 | XMS_ITS | Continuity of Care Document ---
Author Organization [facility] Adult Address [address] [place] [address]- Care Team Providers Care Human Services Supervisor Name Role Phone Ema CORTEZ, Woody Primary Care Physician [facility]s): 01/13/21 - 06/16/21 [facility] Adult [address] [place] [address]- Attending Physician: Jennifer POWER CLEANER OPERATOR, Jovita Sykes Allergies, Adverse Reactions, Alerts Substance Reaction Severity Status codeine facial swelling, hives, trouble breathing Active Toradol facial swelling, difficulty breathing Active Tylox facial swelling, difficulty breathing Active erythromycin facial [...] 30 capsule, 2 Refills, Maintenance, [facility], 155, cm, 06/07/21 12:07:00 EDT, Height, 100, kg, 06/07/21 2:39:00 EDT, DryWeight Start Date: 06/09/21 Status: Ordered outpatient PT for Vestibular rehabilitation for dx of BPPV outpatient PT for Vestibular rehabilitation for dx of BPPV, See Instructions, # 1 each, Refills 0, Tot. Refills 0, Maintenance, outpatient PT for Vestibular rehabilitation for dx of BPPV, 06/07/21 18:00:00 EDT, Supply Start Date: 06/07/21 Status: Ordered verapamil 40 mg oral tablet [...]
--- OUTSIDE RECORDS SUMMARY | 2024-09-08 01:12 | XMS_ITS | Continuity of Care Document ---
Author Organization [facility] Address [address] [place] [address]- Care Team Providers Care Faceter Name Role Phone Ema CORTEZ, Woody Primary Care Physician Encounter [facility] Date(s): 10/03/23 - 11/16/23 [facility] [address] [place], [place] [address] Attending Physician: Burt Braun MD Referring Physician: Woody Boo MD Allergies, [...] 0 Refills, Maintenance, 08/27/22 16:44:00 EDT, Gel, [facility]/pharmacy #[id number], Partial fill upon patient request if the [...] 09/26/23 16:31:00 EDT, Route to Pharmacy Electronically, [facility]/pharmacy #[id number], Partial fill upon patient request if the prescription is for a schedule II opioid drug... Start Date: 09/26/23 Status: Ordered omeprazole 40 mg oral enteric coated capsule See Instructions, TAKE 1 CAPSULE BY MOUTH EVERY DAY BEFORE A MEAL, # 90 capsule, 0 Refills, Maintenance, 10/19/23 6:11:00 EST, [facility] STORE 00546, 155, cm, 09/26/23 15:55:00 EDT, Height, 100, kg, 08/07/22 10:52:00 EDT, Dry Weight Start Date: 10/19/23 Status: Ordered Ventolin HFA 108 mcg/inh inhalation aerosol with adapter 2 puffs, Inhalation, Every 6 hours, PRN NEEDED FOR WHEEZING/SHORTNESS OF BREATH, # 18 each, 0 Refills, Maintenance, 10/23/22 13:56:00 EST, [facility] ST[facility] 05010, 156, cm, 09/29/22 15:57:00 EDT, Height, 100, kg, 08/07/22 10:52:00 EDT, Dry Weight Start Date: 10/23/22 Status: Ordered verapamil 80 mg oral tablet 1 tablet = 80 mg, By Mouth, Daily, # 90 tablet, 3 Refills, Maintenance, 09/26/23 16:31:00 EDT, Tablet, [facility]/pharmacy #[id number], Partial fill upon patient [...] Care team information Care Team Personnel Name: nAa Diaz RN Position: S RN Member Role: Primary Care Nurse Name: Rita Mccall RN Position: S RN Member Role: Primary Care Nurse Name: Woody Boo MD Position: S Physician - Primary Care Member Role: PCP Address: Address: [address] [place] [address] [address] [place], [place] [address] Name: Shannon Dai RN Position: S RN Member Role: Primary Care Nurse Name: Mady Simental RN Position: S RN Member Role: Primary Care Nurse Name: Lala MELENDEZ, Chayito Position: [facility] Nurse Member Role: Primary Care Nurse Care Team Related Persons Name: MICHELLE BROOKS Address: home [address] [address] Name: STEPHEN BROOKS Address: home [address] [place] [address] Name: PATRICIA BERNARDO Address: home [address] [place] [address]
--- OUTSIDE RECORDS SUMMARY | 2024-09-08 01:12 | XMS_ITS | Continuity of Care Document ---
Author Organization [facility] Adult Address [address] [place] [address]- Care Team Providers Care Fun House Attendant Name Role Phone Ema CORTEZ, Woody Primary Care Physician [facility] Date[facility]s): 08/29/22 - 09/28/22 [facility] Adult [address] [place] [address]- Allergies, Adverse Reactions, Alerts Substance Reaction Severity [...] 30 tablet, 5 Refills, 08/21/22 10:34:00 EDT, [facility]/pharmacy #[id number], 156, cm, 08/09/22 8:36:00 EDT, Height, 100, kg, 08/07/22 10:52:00 EDT, Dry Weight Start Date: 08/21/22 Status: Ordered omeprazole 40 mg oral enteric coated capsule See Instructions, TAKE 1 CAPSULE EVERY DAY BEFORE A MEAL FOR 30 DAYS, # 30 capsule, 2 Refills, Maintenance, 08/06/22 10:11:00 EDT, [facility], 155, cm, 07/14/22 9:07:00 EDT, Height, 100, kg, 06/07/21 2:39:00 EDT, Dry Weight Start Date: 08/06/22 Status: Ordered verapamil 40 mg oral tablet 2 tablet, By Mouth, Daily, # 60 tablet, 2 Refills, [facility], 155, cm, 03/08/22 11:00:00 EDT,Height, 100, kg, [...] Address: Address: [address]rd Floor [place], [place] [address]
--- OUTSIDE RECORDS SUMMARY | 2024-09-08 01:12 | XMS_ITS | Continuity of Care Document ---
Author Organization [facility] Adult Address [address] [place] [address]- Care Team Providers Care Pure Culture Operator Name Role Phone Ema CORTEZ, Woody Primary Care Physician [facility]s): 03/09/22 - 04/08/22 [facility] Adult [address] [place] [address]- Allergies, Adverse Reactions, Alerts Substance Reaction Severity [...] # 30 capsule, 1 Refills, [facility], 155, cm, 06/22/21 15:06:00 EDT, Height, 100, kg, 06/07/21 2:39:00 EDT, Dry Weight Start Date: 02/17/22 Status: Ordered verapamil 40 mg oral tablet 2 tablet, By Mouth, Daily, # 60 tablet, 5 Refills, [facility] ST[facility] 77185, 155, cm, 06/22/21 15:06:00 EDT,Height, 100, kg, [...]
--- OUTSIDE RECORDS SUMMARY | 2024-09-08 01:12 | XMS_ITS | Continuity of Care Document ---
Author Organization [facility] Address [address] [place] [address]- Care Team Providers Care Mechanical Project Engineer Name Role Phone Nikolay [facility]oo [facility] Primary Care Physician Encounter [facility] Date(s): 11/12/19 - 11/22/19 [facility] [address] [place] [address]- [facility] Attending Physician: Admtr, Dianne Admitting Physician: AdmtrDianne Referring Physician: Admtr, [...] 10/04/19 8:48:53 EST, Route to Pharmacy Electronically, [id number], [facility]/pharmacy #[id number] Start Date: 10/04/19 Stop Date: 10/18/19 Status: Ordered Diflucan 150 mg oral tablet 1 tablet = 150 mg, By Mouth, Once, # 1 tablet, 1 Refills, Soft Stop, 11/12/19 11:30:00 EST, Tablet,[facility]/pharmacy #1130, 157.2, cm, 11/12/19 10:54:00 EST, Height, [...]
--- OUTSIDE RECORDS SUMMARY | 2024-09-08 01:12 | XMS_ITS | Continuity of Care Document ---
Author Organization [facility] Adult Address [address] [place] [address]- Care Team Providers Care Laser Operator Name Role Phone Ema CORTEZ, Woody Primary Care Physician [facility]s): 01/08/23 - 02/08/23 [facility] Adult [address] [place] [address]- Attending Physician: Trent JOSEPH, Lyn Allergies, Adverse Reactions, Alerts Substance Reaction Severity [...] tablet, 0 Refills, Maintenance, 09/29/22 16:41:00 EDT, [facility]/pharmacy #1130, Partial fill upon patient request if the prescription is for... Start Date: 09/29/22 Status: Ordered Ventolin HFA 108 mcg/inh inhalation aerosol with adapter 2 puffs, Inhalation, Every 6 hours, PRN NEEDED FOR WHEEZING/SHORTNESS OF BREATH, # 18 each, 0 Refills, Maintenance, 10/23/22 13:56:00 EST, [facility] ST[facility] 97050, 156, cm, 09/29/22 15:57:00 EDT, Height, 100, kg, 08/07/22 10:52:00 EDT, Dry Weight Start Date: 10/23/22 Status: Ordered verapamil 40 mg oral tablet 2 tablet, By Mouth, Daily, # 60 tablet, 5 Refills, Maintenance, 10/06/22 13:05:00 EST, [facility] ST[facility] 41781, 156, cm, 09/29/22 15:57:00 EDT, Height, 100, [...] Care Nurse Name: Woody Boo MD Position: [facility] Primary Care Physician Member Role: PCP Address: Address: [address] [place] [address] 3rd Floor [facility] [place] [address]- Name: Shannon Dai RN Position: [facility] RN Member Role: Primary Care Nurse Name: Mady Simental RN Position: S RN Member Role: Primary Care Nurse Name: Lala MELENDEZ, Chayito [place] Position: [facility] Nurse Member Role: Primary Care Nurse Care Team Related Persons Name: MICHELLE BROOKS Address: home [address] [address] Name: STEPHEN BROOKS Address: home [address] [place] [address] Name: PATRICIA BERNARDO Address: home [address] [place] [address]
--- OUTSIDE RECORDS SUMMARY | 2024-09-08 01:12 | XMS_ITS | Continuity of Care Document ---
Author Organization [facility] Adult Address [address] [place] [address]- Care Team Providers Care Film Recordist Name Role Phone Ema CORTEZ, Woody Primary Care Physician ( [phone] [facility] Date[facility]s): 08/30/23 - 09/29/23 [facility] Adult [address] [place] [address]- Allergies, Adverse Reactions, Alerts Substance Reaction Severity [...] facial swelling swell Active Paxlovid rash Active Immunizations Given and [...] 0 Refills, Maintenance, 08/27/22 16:44:00 EDT, Gel, [facility]/pharmacy #1130, Partial fill upon patient request [...] 09/26/23 16:31:00 EDT, Route to Pharmacy Electronically, [facility]/pharmacy #[id number], Partial fill upon patient request if the prescription is for a schedule II opioid drug... Start Date: 09/26/23 Status: Ordered omeprazole 40 mg oral enteric coated capsule See Instructions, TAKE 1 CAPSULE BY MOUTH EVERY DAY BEFORE A MEAL, # 90 capsule, 1 Refills, Maintenance, 05/10/23 12:47:00 EDT, [facility], 156, cm, 05/08/23 13:27:00 EDT, Height, 100, [...] each, 0 Refills, Maintenance, 10/23/22 13:56:00 EST, [facility] STORE 05129, 156, cm, 09/29/22 15:57:00 EDT, Height, 100, [...] Care Nurse Name: Woody Boo MD Position: [facility] Physician - Primary Care Member Role: PCP Address: Address: [address] [place] [id number] Name: Shannon Dai RN Position: [facility] RN Member Role: Primary Care Nurse Name: Mady Simental RN Position: [facility] RN Member Role: Primary Care Nurse Name: Chayito Reeves RN Position: [facility] AMB Nurse Member Role: Primary Care Nurse Care Team Related Persons Name: MICHELLE BROOKS Address: home [address] [address] Name: STEPHEN BROOKS Address: home [address] [place] [address] Name: PATRICIA BERNARDO Address: home [address] [place] [address]
--- OUTSIDE RECORDS SUMMARY | 2024-09-08 01:12 | XMS_ITS | Continuity of Care Document ---
Author Organization [facility] Adult Address [address] [place] [address]- Care Team Providers Care Oil Changer Name Role Phone Ema CORTEZ, Woody Primary Care Physician [facility] Date(s): 06/22/21 - 06/29/21 [facility] Adult [address] [place] [address]- Encounter Diagnosis Otalgia, bilateral(Discharge Diagnosis) - 06/22/21 Vertigo(Discharge Diagnosis) - 06/22/21 Attending Physician: Silverio Robert MD Allergies, Adverse [...] Dry Weight Start Date: 01/31/21 Status: Ordered naproxen 500 mg oral tablet 1 tablet = 500 mg, By Mouth, 2 times a day, for 14 days, # 28 tablet, 0 Refills, Acute 07/06/21 15:18:00 EDT, 06/22/21 15:18:00 EDT, Tablet, [facility], Partial fill upon patient request if the prescription is for a schedule II opioid drug., 1... Start Date: 06/22/21 Stop Date: 07/06/21 Status: Ordered omeprazole 40 mg oral enteric coated capsule See Instructions, TAKE 1 CAPSULE EVERY DAY BEFORE A MEAL FOR 30 DAYS, # 30 capsule, 2 Refills, Maintenance, [facility], 155, cm, 06/07/21 12:07:00 EDT, Height, 100, [...] Dates Health Status Cl inical Service Informant Otalgia, bilateral Discharge Diagnosis 06/22/21 Vertigo Discharge Diagnosis 06/22/21 Vital Signs Most recent to oldest [Reference Range]: 1 2 Height 155 cm (06/22/21 3:06 PM) 155 cm (06/22/21 2:42 PM) Weight 102 kg (06/22/21 2:42 PM) Oxygen Saturation [94-100 %] 98 % (06/22/21 2:42 PM) Pulse Rate [55-90 bpm] 72 bpm (06/22/21 3:06 PM) 105 bpm *H* (06/22/21 2:42 PM) Body Mass Index [18.5-24.99] 42.46 *>HHI* (06/22/21 2:42 PM) Blood Pressure [90-138/55-84 mm Hg] 120/ 76mm Hg (06/22/21 3:06 PM) 140/87mm Hg *H* (06/22/21 2:42 PM) Respiratory Rate [16-30 br/min] 16 br/mi n (06/22/21 3:06 PM) Mode of Delivery (Oxygen) Room air (06/22/21 2:42 PM) Blood pressure sites Arm, left (06/22/21 3:06 PM) Arm, left (06/22/21 2:42 PM) Weight Obtained Via Standing scale (06/22/21 2:42 PM) Social History Social History Type Response Smoking Status Current some day smo ker; Other: smoking only a few cigs a week; entered on: 02/14/16 Sex Female
--- OUTSIDE RECORDS SUMMARY | 2024-09-08 01:12 | XMS_ITS | Continuity of Care Document ---
Author Organization [facility] Address [address] [place] [address]- Care Team Providers Care Bad Credit Collector Name Role Phone Ema CORTEZ, Woody Primary Care Physician Encounter [facility] Date(s): 06/08/21 - 07/15/[address] [address]- Discharge Disposition: A-D/C Home Attending Physician: Woody Boo MD Admitting Physician: Woody Boo MD Referring Physician: Woody Boo MD Allergies, [...] Refills, Soft Stop, 06/20/21 12:02:00 EDT, Tablet, [facility]/pharmacy #1130, Partial fill upon patient request if the prescription is for a schedule II opioid... Start Date: 06/20/21 Status: Ordered losartan 25 mg oral tablet 1 tablet = 25 mg, By Mouth, Daily, # 30 tablet, 5 Refills, Maintenance, 01/31/21 18:36:00 EST, Tablet, [facility]/pharmacy #1130, 157.2, cm, 01/14/21 9:06:00 EST, Height, 97.8, kg, 12/26/19 13:26:00 EST, Dry Weight Start Date: 01/31/21 Status: Ordered omeprazole 40 mg oral enteric coated capsule See Instructions, TAKE 1 CAPSULE EVERY DAY BEFORE A MEAL FOR 30 DAYS, # 30 capsule, 2 Refills, Maintenance, [facility], 155, cm, 06/07/21 12:07:00 EDT, Height, 100, [...]
--- OUTSIDE RECORDS SUMMARY | 2024-09-08 01:12 | XMS_ITS | Continuity of Care Document ---
Author Organization [facility] Adult Address [address] [place] [address]- Care Team Providers Care Lithopone Mill Worker Name Role Phone Ema CORTEZ, Woody Primary Care Physician ( [phone] [facility] Date[facility]s): 03/22/23 - 04/21/23 [facility] Adult [address] [place] [address]- Allergies, Adverse Reactions, Alerts Substance Reaction Severity [...] capsule, 0 Refills, Maintenance, 02/07/23 11:02:00 EDT, [facility]/pharmacy #1130, 156, cm, 09/29/22 15:57:00 EDT, Height, 100, kg, 08/07/22 10:52:00 EDT, Dry Weight Start Date: 02/07/23 Status: Ordered predniSONE 10 mg oral tablet See Instructions, 4 tablet By Mouth Daily for 3 days, 3 tabs for 3 days, 2 tabs for 3 days, 1 tab for 3 days, # 30 tablet, 0 Refills, Maintenance, 09/29/22 16:41:00 EDT, [facility]/pharmacy #1130, Partial fill upon patient request if the prescription is for... Start Date: 09/29/22 Status: Ordered ProAir HFA 90 mcg/inh inhalation aerosol with adapter 2, puffs, Inhalation, Every 4 hours, PRN, # 8.5 Gm, Refills 0, Tot. Refills 0, Maintenance, 03/29/23 13:11:00 EDT, Aerosol, Route to Pharmacy Electronically, [id number], [facility]/pharmacy #1130, 156, cm, 03/29/23 12:30:00 EDT, Hei... Start Date: 03/29/23 Status: Ordered Ventolin HFA 108 mcg/inh inhalation aerosol with adapter 2 puffs, Inhalation, Every 6 hours, PRN NEEDED FOR WHEEZING/SHORTNESS OF BREATH, # 18 each, 0 Refills, Maintenance, 10/23/22 13:56:00 EST, [facility], 156, cm, 09/29/22 15:57:00 EDT, Height, 100, kg, 08/07/22 10:52:00 EDT, Dry Weight Start Date: 10/23/22 Status: Ordered verapamil 40 mg oral tablet 2 tablet, By Mouth, Daily, # 180 tablet, 1 Refills, Maintenance, 04/05/23 13:32:00 EDT, [facility], 156, cm, 03/29/23 12:30:00 EDT, Height, 100, [...] Team Personnel Name: Ana Diaz RN Position: [facility] RN Member Role: Primary Care Nurse Name: Rita Mccall RN Position: S RN Member Role: Primary Care Nurse Name: Woody Boo MD Position: S Physician - Primary Care Member Role: PCP Address: Address: [address] [place] [address] Name: Shannon Dai RN Position: S RN Member Role: Primary Care Nurse Name: Mady Simental RN Position: S RN Member Role: Primary Care Nurse Name: Chayito Reeves RN Position: [facility] AMB Nurse Member Role: Primary Care Nurse Care Team Related Persons Name: CECILIA MICHELLE Address: home [address] [address] Name: STEPHEN BROOKS Address: home [address] [place] [address] Name: PATRICIA BERNARDO Address: home [address] [place] [address]
--- OUTSIDE RECORDS SUMMARY | 2024-09-08 01:12 | XMS_ITS | Continuity of Care Document ---
Author Organization [facility] Address [address] [place] [address]- Care Team Providers Care Freelance Copywriter Name Role Phone Ema CORTEZ, Woody Primary Care Physician ( [phone] [facility] Date[facility]s): 02/15/22 - 03/17/22 [facility] [address] [address] Allergies, Adverse Reactions, Alerts Substance Reaction Severity [...] 30 DAYS, # 30 capsule, 1 Refills, [id number], 155, cm, 06/22/21 15:06:00 EDT, Height, 100, kg, 06/07/21 2:39:00 EDT, Dry Weight Start Date: 02/17/22 Status: Ordered verapamil 40 mg oral tablet 2 tablet, By Mouth, Daily, # 60 tablet, 5 Refills, [id number], 155, cm, 06/22/21 15:06:00 EDT,Height, 100, kg, [...]
--- OUTSIDE RECORDS SUMMARY | 2024-09-08 01:12 | XMS_ITS | Continuity of Care Document ---
Author Organization [facility] Adult Address [address] [place] [address]- Care Team Providers Care Rn Case Mgr Name Role Phone Ema CORTEZ, Woody Primary Care Physician ( [phone] [facility] Date[facility]s): 06/20/21 - 07/20/21 [facility] Adult [address] [place] [address]- Allergies, Adverse Reactions, Alerts Substance Reaction Severity [...] Refills, Soft Stop, 06/20/21 12:02:00 EDT, Tablet, [facility]/pharmacy #1130, Partial fill upon patient request if the prescription is for a schedule II opioid... Start Date: 06/20/21 Status: Ordered losartan 25 mg oral tablet 1 tablet = 25 mg, By Mouth, Daily, # 30 tablet, 5 Refills, Maintenance, 01/31/21 18:36:00 EST, Tablet, [facility]/pharmacy #1130, 157.2, cm, 01/14/21 9:06:00 EST, Height, 97.8, kg, 12/26/19 13:26:00 EST, Dry Weight Start Date: 01/31/21 Status: Ordered omeprazole 40 mg oral enteric coated capsule See Instructions, TAKE 1 CAPSULE EVERY DAY BEFORE A MEAL FOR 30 DAYS, # 30 capsule, 2 Refills, Maintenance, [facility], 155, cm, 06/07/21 12:07:00 EDT, Height, 100, [...]
--- OUTSIDE RECORDS SUMMARY | 2024-09-08 01:12 | XMS_ITS | Continuity of Care Document ---
Author Organization [facility] Adult Address [address] [place] [address]- Care Team Providers Care Supervisor Home Restoration Service Name Role Phone Ema CORTEZ, Woody Primary Care Physician ( [phone] [facility] Date[facility]s): 08/11/22 - 09/10/22 [facility] Adult [address] [place] [address]- Allergies, Adverse Reactions, Alerts Substance Reaction Severity [...] 0 Refills, Maintenance, 08/27/22 16:44:00 EDT, Gel, [facility]/pharmacy #1130, Partial fill upon patient request if the prescript... Start Date: 08/27/22 Status: Ordered losartan 25 mg oral tablet 2 tablet = 50 mg, By Mouth, Daily, # 30 tablet, 5 Refills, 08/21/22 10:34:00 EDT, [facility]/pharmacy #1130, 156, cm, 08/09/22 8:36:00 EDT, Height, 100, kg, 08/07/22 10:52:00 EDT, Dry Weight Start Date: 08/21/22 Status: Ordered omeprazole 40 mg oral enteric coated capsule See Instructions, TAKE 1 CAPSULE EVERY DAY BEFORE A MEAL FOR 30 DAYS, # 30 capsule, 2 Refills, Maintenance, 08/06/22 10:11:00 EDT, [facility], 155, cm, 07/14/22 9:07:00 EDT, Height, 100, kg, 06/07/21 2:39:00 EDT, Dry Weight Start Date: 08/06/22 Status: Ordered verapamil 40 mg oral tablet 2 tablet, By Mouth, Daily, # 60 tablet, 2 Refills, [facility], 155, cm, 03/08/22 11:00:00 EDT,Height, 100, kg, [...] Name: Woody Boo MD Address: Address: [address]rd [address] [place], [place] [address]
--- OUTSIDE RECORDS SUMMARY | 2024-09-08 01:12 | XMS_ITS | Continuity of Care Document ---
Author Organization [facility] Adult Address [address] [place] [address]- Care Team Providers Care Chef Teacher Name Role Phone Ema CORTEZ, Woody Primary Care Physician [facility] Date[facility]): 05/11/23 - 06/10/23 [facility] [address] [place] [id number]- Allergies, Adverse Reactions, Alerts Substance Reaction Severity Status codeine facial swelling, hives, trouble breathing Active erythromycin facial swelling, dif ficulty breathing swell Active penicillin facial swelling, dif ficulty breathing swell Active morphine facial swelling, dif ficulty breathing swell Active sulfa drugs facial swelling, dif ficulty breathing swell Active Tylox facial swelling, difficulty breathing Active Toradol facial swelling, difficulty breathing [...] 05/08/23 13:47:00 EDT, Route to Pharmacy Electronically, [id number], [facility]/pharmacy #[id number], 156, cm, 05/08/23 13:27:00 EDT, He... Start Date: 05/08/23 Stop Date: 06/07/23 Status: Ordered diclofenac 1% topical gel 1 application, Topically, 4 times a day, PRN Pain , Mild, not to exceed 8 grams/day/single joint ofupper extremities, # 100 Gm, 0 Refills, Maintenance, 08/27/22 16:44:00 EDT, Gel, [facility]/pharmacy #[id number], Partial fill upon patient request if [...] capsule, 1 Refills, Maintenance, 05/10/23 12:47:00 EDT, [facility] STORE 72820, 156, cm, 05/08/23 13:27:00 EDT, Height, 100, [...] 13:11:00 EDT, Aerosol, Route to Pharmacy Electronically, [id number], [facility], 156, cm, 03/29/23 12:30:00 EDT, Hei... Start Date: 03/29/23 Status: Ordered Ventolin HFA 108 mcg/inh inhalation aerosol with adapter 2 puffs, Inhalation, Every 6 hours, PRN NEEDED FOR WHEEZING/SHORTNESS OF BREATH, # 18 each, 0 Refills, Maintenance, 10/23/22 13:56:00 EST, [facility], 156, cm, 09/29/22 15:57:00 EDT, Height, 100, kg, 08/07/22 10:52:00 EDT, Dry Weight Start Date: 10/23/22 Status: Ordered verapamil 40 mg oral tablet 2 tablet, By Mouth, Daily, # 180 tablet, 1 Refills, Maintenance, 04/05/23 13:32:00 EDT, [facility], 156, cm, 03/29/23 12:30:00 EDT, Height, 100, [...] Team Personnel Name: Ana Diaz RN Position: [facility] RN Member Role: Primary Care Nurse Name: Rita Mccall RN Position: [facility] RN Member Role: Primary Care Nurse Name: Woody Boo MD Position: [facility] Physician - Primary Care Member Role: PCP Address: Address: [address] [place] [address] [address] [place], [place] [address] Name: Shannon Dai RN Position: [facility] RN Member Role: Primary Care Nurse Name: Mady Simental RN Position: [facility] RN Member Role: Primary Care Nurse Name: Chayito Reeves Position: [facility] AMB Nurse Member Role: Primary Care Nurse Care Team Related Persons Name: MICHELLE BROOKS Address: home [address] [address] Name: STEPHEN BROOKS Address: home [address] [place] [address] Name: PATRICIA BERNARDO Address: home [address] [place] [address]
--- OUTSIDE RECORDS SUMMARY | 2024-09-08 01:12 | XMS_ITS | Continuity of Care Document ---
Author Organization [facility] Address [address] [place] [address]- Care Team Providers Care Firer Powerhouse Name Role Phone Ema CORTEZ, Woody Primary Care Physician ( [phone] [facility]counter [facility] Date[facility]s): 08/14/23 - 09/13/23 [facility] [address] [place], [place] [address] Attending Physician: Admtr, Ar8 Admitting [...] 0 Refills, Maintenance, 08/14/23 12:53:00 EDT, Powder, [facility]/pharmacy #[id number], Give whichever brand is covered. Partial fill upon patient request if the prescription is for a schedule II opioid... Start Date: 08/14/23 Status: Ordered albuterol CFC free 90 mcg/inh inhalation aerosol 2, puffs, Inhalation, Every 4 hours, PRN, or cough, # 1 each, Refills 0, Tot. Refills 0, Maintenance, 05/08/23 13:47:00 EDT, Route to Pharmacy Electronically, [id number], [facility]/pharmacy #[id number], 156, cm, 05/08/23 13:27:00 EDT, He... Start Date: 05/08/23 Stop Date: 06/07/23 Status: Ordered diclofenac 1% topical gel 1 application, Topically, 4 times a day, PRN Pain , Mild, not to exceed 8 grams/day/single joint ofupper extremities, # 100 Gm, 0 Refills, Maintenance, 10/02/22 16:44:00 EDT, Gel, [facility]/pharmacy #[id number], Partial fill upon patient request if the prescript... Start Date: 08/27/22 Status: Ordered fluconazole 150 mg oral tablet 1 tablet = 150 mg, By Mouth, Once, repeat dose if still having symptoms in 72 hours, # 2 tablet, 0 Refills, Soft Stop, 08/31/23 12:04:00 EDT, Tablet, [facility]/pharmacy #[id number], Partial fill upon patient request if the prescription is for a schedule II opioid... Start Date: 08/31/23 Status: Ordered losartan 25 mg oral tablet 2 tablet = 50 mg, By Mouth, Daily, for 30 days, # 60 tablet, 6 Refills, Physician Stop 02/19/24 16:33:00 EDT, 07/24/23 16:33:00 EDT, [facility]/pharmacy #[id number], 155, cm, 05/10/23 23:27:00 EDT, Height, 100, kg, 08/07/22 10:52:00 EDT, Dry Weight Start Date: 07/24/23 Stop Date: 02/19/24 Status: Ordered omeprazole 40 mg oral enteric coated capsule See Instructions, TAKE 1 CAPSULE BY MOUTH EVERY DAY BEFORE A MEAL, # 90 capsule, 1 Refills, Maintenance, 05/10/23 12:47:00 EDT, [facility] STORE 44572, 156, cm, 05/08/23 13:27:00 EDT, Height, 100, kg, 08/07/22 10:52:00 EDT, Dry Weight Start Date: 05/10/23 Status: Ordered ProAir HFA 90 mcg/inh inhalation aerosol with adapter 2, puffs, Inhalation, Every 4 hours, PRN, # 8.5 Gm, Refills 0, Tot. Refills 0, Maintenance, 03/29/23 13:11:00 EDT, Aerosol, Route to Pharmacy Electronically, [id number], [facility]/pharmacy #1130, 156, cm, 03/29/23 12:30:00 EDT, Hei... Start Date: 03/29/23 Status: Ordered Ventolin HFA 108 mcg/inh inhalation aerosol with adapter 2 puffs, Inhalation, Every 6 hours, PRN NEEDED FOR WHEEZING/SHORTNESS OF BREATH, # 18 each, 0 Refills, Maintenance, 10/23/22 13:56:00 EST, [facility] STORE 55355, 156, cm, 09/29/22 15:57:00 EDT, Height, 100, kg, 08/07/22 10:52:00 EDT, Dry Weight Start Date: 10/23/22 Status: Ordered verapamil 40 mg oral tablet 2 tablet, By Mouth, Daily, # 180 tablet, 1 Refills, Maintenance, 04/05/23 13:32:00 EDT, [facility], 156, cm, 03/29/23 12:30:00 EDT, Height, 100, [...] RN Position: [facility] RN Member Role: Primary Care Nurse Name: Rita Mccall RN Position: [facility] RN Member Role: Primary Care Nurse Name: Woody Boo MD Position: [facility] Physician - Primary Care Member Role: PCP Address: Address: [address] [place] [address] [address] [place], [place] [address] Name: Shannon Dai RN Position: S RN Member Role: Primary Care Nurse Name: Mady Simental RN Position: S RN Member Role: Primary Care Nurse Name: Chayito Reeves RN Position: [facility] AMB Nurse Member Role: Primary Care Nurse Care Team Related Persons Name: MICHELLE BROOKS Address: home [address] [address] Name: STEPHEN BROOKS Address: home [address] [place] [address] Name: PATRICIA BERNARDO Address: home [address] [place] [address]
--- OUTSIDE RECORDS SUMMARY | 2024-09-08 01:12 | XMS_ITS | Continuity of Care Document ---
Author Organization [facility] Address [address] [place] [address]- Care Team Providers Care Life Skills Consultant Name Role Phone Ema CORTEZ, Woody Primary Care Physician Encounter [facility] Date(s): 05/08/23 - 05/15/23 [facility] [address] [place] [address]- Attending Physician: Lety Cohn MD Referring Physician: Woody Boo MD Allergies, [...] 05/08/23 13:47:00 EDT, Route to Pharmacy Electronically, [id number], [facility]/pharmacy #[id number], 156, cm, 05/08/23 13:27:00 EDT, He... Start Date: 05/08/23 Stop Date: 06/07/23 Status: Ordered azithromycin 250 mg oral tablet See Instructions, Take 2 tablets by mouth once on day 1, then 1 tablet by mouth once on days 2 through 5., # 6 tablet, 0 Refills, Acute 05/16/23 13:13:00 EDT, 05/11/23 13:12:00 EDT, [facility]/pharmacy #[id number], Partial fill upon patient [...] Refills, Maintenance, 05/10/23 12:47:00 EDT, [facility], 156, cm, 05/08/23 13:27:00 EDT, Height, 100, [...] Acute 05/26/23 13:47:00 EDT, 05/08/23 13:47:00 EDT, [facility]/pharmacy #[id number], Partial fill upon patient request if the presc... Start Date: 05/08/23 Stop Date: 05/26/23 Status: Ordered ProAir HFA 90 mcg/inh inhalation aerosol with adapter 2, puffs, Inhalation, Every 4 hours, PRN, # 8.5 Gm, Refills 0, Tot. Refills 0, Maintenance, 03/29/23 13:11:00 EDT, Aerosol, Route to Pharmacy Electronically, [id number], [facility]/pharmacy #1130, 156, cm, 03/29/23 12:30:00 EDT, Hei... Start Date: 03/29/23 Status: Ordered Tessalon Perles 100 mg oral capsule 1 capsule = 100 mg, By Mouth, 3 times a day, PRN Cough, for 10 days, # 30 capsule, 0 Refills, Acute05/21/23 12:25:00 EDT, 05/11/23 12:25:00 EDT, Capsule, [facility]/pharmacy #1130, Partial fill upon patient request if the prescription is for a schedule II o... Start Date: 05/11/23 Stop Date: 05/21/23 Status: Ordered Ventolin HFA 108 mcg/inh inhalation aerosol with adapter 2 puffs, Inhalation, Every 6 hours, PRN NEEDED FOR WHEEZING/SHORTNESS OF BREATH, # 18 each, 0 Refills, Maintenance, 10/23/22 13:56:00 EST, [facility], 156, cm, 09/29/22 15:57:00 EDT, Height, 100, kg, 08/07/22 10:52:00 EDT, Dry Weight Start Date: 10/23/22 Status: Ordered verapamil 40 mg oral tablet 2 tablet, By Mouth, Daily, # 180 tablet, 1 Refills, Maintenance, 04/05/23 13:32:00 EDT, [facility], 156, cm, 03/29/23 12:30:00 EDT, Height, 100, [...] oldest [Reference Range]: 1 Height 156 cm (05/08/23 1:27 PM) Oxygen Saturation [94-100 %] 99 % (05/08/23 1:27 PM) Pulse Rate [55-90 bpm] 75 bpm (05/08/23 1:27 PM) Blood Pressure [90-138/55-84 mm Hg] 121/ 75mm Hg (05/08/23 1:27 PM) Respiratory Rate [16-30 br/min] 24 br/mi n (05/08/23 1:27 PM) Temperature [96.8-100.4 DegF] 97.8 DegF (05/08/23 1:27 PM) Mode of Delivery (Oxygen) Room air (05/08/23 1:27 PM) Blood pressure sites Arm, left (05/08/23 1:27 PM) Temperature Route Temporal (05/08/23 1:27 PM) Social History Social History Type Response Tobacco Other: Quit June 27. Sex Female Note * Alice Rai: PERFORM, SIGN, VERIFY Event Display: Patient Education/Instruction Authored Date: [id number] [facility] *[facility] Clinical Summary Name CHRISTIAN BROOKS Age 48 Years 1975 PCP Woody Boo MD PCP Visit Date 05/08/2023 12:25:00 Additional Instructions: Scheduled Appointments?? Future Appointments ?No Future Appointments Scheduled Follow-Up Instructions ?? Diagnosis Medications: Please continue your medications until treatment is completed or stopped by your provider. Discuss any questions related to medications with your provider. New Medications [id number], [address] [place] [phone], [phone] Doxycycline (doxycycline hyclate 100 mg oral capsule) 1 capsule Oral twice a day for 7 Days. Take with food, but avoid at the same time as dairy. Refills: 0. Next Dose: Medications to Continue Taking That Have Changed [facility]/pharmacy #[id number], [address] [place] [phone], [phone] - Albuterol (albuterol CFC free 90 mcg/inh inhalation aerosol) 2 puff(s) Inhalation every 4 hours as needed Wheezing/Shortness of Breath for 30 Days. or cough. Refills: 0. Next Dose: - PredniSONE (predniSONE 10 mg oral tablet) 4 tab x 3d, 3 tab x 3d, 2 tab x 3d, 1 tab x 3d. First dose now, then in AM. Take w/ food.. Refills: 0. Next Dose: These medications were not printed or sent to your pharmacy - Albuterol (ProAir HFA 90 mcg/inh inhalation aerosol with adapter) 2 puff(s) Inhalation every 4 hours as needed Wheezing/Shortness of Breath. Refills: 0. Next Dose: - Albuterol (Ventolin HFA 108 mcg/inh inhalation aerosol with adapter) 2 puff(s) Inhalation every 6hours as needed NEEDED FOR WHEEZING/SHORTNESS OF BREATH. Refills: 0. Next Dose: - PredniSONE (predniSONE 10 mg oral tablet) 4 tablet By Mouth Daily for 3 days, 3 tabs for 3 days, 2 tabs for 3 days, 1 tab for 3 days. Refills: 0. Next Dose: Medications to Continue [...] 1 CAPSULE BY MOUTH EVERY DAY BEFORE MEALS. Refills: 0. Next Dose: Verapamil (verapamil 40 mg oral tablet) 2 tab(s) Oral Daily. Refills: 1. Next Dose: Allergy Info:?? Paxlovid; Mushrooms; Demerol; Vicodin; Tylox; Percocet; Zofran; Toradol; sulfa drugs; morphine; penicillin; erythromycin; codeine Medications Given This Visit Future Orders ?No future orders Vital Signs Height 156 cm Weight BMI Blood Pressure 121 mm Hg/75 mm Hg Temperature 97.8 DegF Pulse Rate 75 bpm Respiratory Rate 24 br/min 02 Sat Mode of Delivery 99 %/Room air You can now view a summary of your hospital visit from the comfort of your home through a free online portal called Hello Chair. Hello Chair is a website that allows you to securely view your medical information including discharge summary, medications and follow-up visits. ??You can alsosend a secure electronic message to your doctor???s office to request appointments, renew medications or just ask a question. You can enroll at [email or web address] or register during your next office visit. [...] provider, you may find a [facility] provider by calling [facility] [employer] [facility] at [phone]. For information about the plan of care [...] Team Personnel Name: Ana Diaz RN Position: [facility] RN Member Role: Primary Care Nurse Name: Rita Mccall RN Position: [facility] RN Member Role: Primary Care Nurse Name: Woody Boo MD Position: [facility] Physician - Primary Care Member Role: PCP Address: Address: [address] [place] [id number] Name: Shannon Dai RN Position: [facility] RN Member Role: Primary Care Nurse Name: Mady Simental RN Position: [facility] RN Member Role: Primary Care Nurse Name: Chayito Reeves Position: [facility] AMB Nurse Member Role: Primary Care Nurse Care Team Related Persons Name: MICHELLE BROOKS Address: home [address] [address] Name: STEPHEN BROOKS Address: home [address] [place] [address] Name: PATRICIA BERNARDO Address: home [address] [place] [address]
--- OUTSIDE RECORDS SUMMARY | 2024-09-08 01:12 | XMS_ITS | Continuity of Care Document ---
Author Organization [facility] Address [address] [place] [address]- Care Team Providers Care Wound Care Specialist Name Role Phone Ema CORTEZ, Woody Primary Care Physician [facility] Date(s): 12/13/22 - 01/12/[address] [address]- Allergies, Adverse Reactions, Alerts Substance Reaction Severity [...] DAYS, # 30 capsule, 2 Refills, Maintenance, 11/07/22 15:34:00 EST, [facility], 156, cm, 09/29/22 15:57:00 EDT, Height, 100, kg,08/07/22 10:52:00 EDT, Dry Weight Start Date: 11/07/22 Status: Ordered predniSONE 10 mg oral tablet See Instructions, 4 tablet By Mouth Daily for 3 days, 3 tabs for 3 days, 2 tabs for 3 days, 1 tab for 3 days, # 30 tablet, 0 Refills, Maintenance, 09/29/22 16:41:00 EDT, [facility]/pharmacy #1130, Partial fill upon patient request if the prescription is for... Start Date: 09/29/22 Status: Ordered Ventolin HFA 108 mcg/inh inhalation aerosol with adapter 2 puffs, Inhalation, Every 6 hours, PRN NEEDED FOR WHEEZING/SHORTNESS OF BREATH, # 18 each, 0 Refills, Maintenance, 10/23/22 13:56:00 EST, [facility] STORE 19329, 156, cm, 09/29/22 15:57:00 EDT, Height, 100, kg, 08/07/22 10:52:00 EDT, Dry Weight Start Date: 10/23/22 Status: Ordered verapamil 40 mg oral tablet 2 tablet, By Mouth, Daily, # 60 tablet, 5 Refills, Maintenance, 10/06/22 13:05:00 EST, [facility] STORE 09477, 156, cm, 09/29/22 15:57:00 EDT, Height, 100, [...] Care Nurse Name: Woody Boo MD Position: [facility] Primary Care Physician Member Role: PCP Address: Address: [address] [place] [address] [address] [place] [address]- Name: Shannon Dai RN Position: S RN Member Role: Primary Care Nurse Name: Mady Simentla RN Position: S RN Member Role: Primary Care Nurse Name: Chayito Reeves RN Position: [facility] AMB Nurse Member Role: Primary Care Nurse Care Team Related Persons Name: MICHELLE BROOKS Address: home [address] [address] Name: STEPHEN BROOKS Address: home [address] [place] [address] Name: PATRICIA BERNARDO Address: home [address] [place] [address]
--- OUTSIDE RECORDS SUMMARY | 2024-09-08 01:12 | XMS_ITS | Continuity of Care Document ---
Author Organization [facility] Address [address] [place] [address]- Care Team Providers Care Sheep Farmer Name Role Phone Ema CORTEZ, Woody Primary Care Physician [facility] Date[facility]s): 09/12/22 - 10/12/22 [facility] [address] [place] [address]- Allergies, Adverse Reactions, Alerts Substance Reaction Severity [...] capsule, 2 Refills, Maintenance, 08/06/22 10:11:00 EDT, [facility] STORE 03882, 155, cm, 07/14/22 9:07:00 EDT, Height, 100, kg, 06/07/21 2:39:00 EDT, Dry Weight Start Date: 08/06/22 Status: Ordered predniSONE 10 mg oral tablet See Instructions, 4 tablet By Mouth Daily for 3 days, 3 tabs for 3 days, 2 tabs for 3 days, 1 tab for 3 days, # 30 tablet, 0 Refills, Maintenance, 09/29/22 16:41:00 EDT, [facility]/pharmacy #1130, Partial fill upon patient request if the prescription is for... Start Date: 09/29/22 Status: Ordered verapamil 40 mg oral tablet 2 tablet, By Mouth, Daily, # 60 tablet, 5 Refills, Maintenance, 10/06/22 13:05:00 EST, [facility] STORE 28670, 156, cm, 09/29/22 15:57:00 EDT, Height, 100, [...] Care Physician Member Role: PCP Address: Address: [address] [place] [id number] Name: Shannon Dai RN Position: [facility] RN Member Role: Primary Care Nurse Name: Mady Simental RN Position: S RN Member Role: Primary Care Nurse Name: Meek Shin RN Position: [facility] RN Member Role: Primary Care Nurse Name: Chayito Reeves RN Position: [facility] Nurse Member Role: Primary Care Nurse Care Team Related Persons Name: CECILIA MICHELLE Address: home [address] [address] Name: STEPHEN BROOKS Address: home [address] [place] [address] Name: PATRICIA BERNARDO Address: home [address] [place] [address]
--- OUTSIDE RECORDS SUMMARY | 2024-09-08 01:12 | XMS_ITS | Continuity of Care Document ---
Author Organization [facility] Address [address] [place] [address]- Care Team Providers Care Eap Specialist Name Role Phone Ema CORTEZ, Woody Primary Care Physician [facility] Date[facility]s): 03/19/23 - 04/18/23 [facility] [address] [address]- Allergies, Adverse Reactions, Alerts Substance Reaction Severity [...] capsule, 0 Refills, Maintenance, 02/07/23 11:02:00 EDT, [facility]/pharmacy #1130, 156, cm, 09/29/22 15:57:00 EDT, Height, 100, kg, 08/07/22 10:52:00 EDT, Dry Weight Start Date: 02/07/23 Status: Ordered predniSONE 10 mg oral tablet See Instructions, 4 tablet By Mouth Daily for 3 days, 3 tabs for 3 days, 2 tabs for 3 days, 1 tab for 3 days, # 30 tablet, 0 Refills, Maintenance, 09/29/22 16:41:00 EDT, [facility]/pharmacy #1130, Partial fill upon patient request if the prescription is for... Start Date: 09/29/22 Status: Ordered ProAir HFA 90 mcg/inh inhalation aerosol with adapter 2, puffs, Inhalation, Every 4 hours, PRN, # 8.5 Gm, Refills 0, Tot. Refills 0, Maintenance, 03/29/23 13:11:00 EDT, Aerosol, Route to Pharmacy Electronically, [id number], [facility]/pharmacy #1130, 156, cm, 03/29/23 12:30:00 EDT, Hei... Start Date: 03/29/23 Status: Ordered Ventolin HFA 108 mcg/inh inhalation aerosol with adapter 2 puffs, Inhalation, Every 6 hours, PRN NEEDED FOR WHEEZING/SHORTNESS OF BREATH, # 18 each, 0 Refills, Maintenance, 10/23/22 13:56:00 EST, [facility] STORE 43374, 156, cm, 09/29/22 15:57:00 EDT, Height, 100, kg, 08/07/22 10:52:00 EDT, Dry Weight Start Date: 10/23/22 Status: Ordered verapamil 40 mg oral tablet 2 tablet, By Mouth, Daily, # 180 tablet, 1 Refills, Maintenance, 04/05/23 13:32:00 EDT, [facility], 156, cm, 03/29/23 12:30:00 EDT, Height, 100, [...] Team Personnel Name: Ana Diaz RN Position: [facility] RN Member Role: Primary Care Nurse Name: Rita Mccall RN Position: S RN Member Role: Primary Care Nurse Name: Woody Boo MD Position: [facility] Physician - Primary Care Member Role: PCP Address: Address: [address] [place] [address] [address] Name: Shannon Dai RN Position: S RN Member Role: Primary Care Nurse Name: Mady Simental RN Position: [facility] RN Member Role: Primary Care Nurse Name: Chayito Reeves RN Position: [facility] AMB Nurse Member Role: Primary Care Nurse Care Team Related Persons Name: CECILIA MICHELLE Address: home [address] [address] Name: STEPHEN BROOKS Address: home [address] [place] [address] Name: PATRICIA BERNARDO Address: home [address] [place] [address]
[2024-09-08 01:18] LABS: Alanine Aminotransferase 18 U/L (0-31); Albumin Level 4.4 g/dL (3.5-5.0); Alkaline Phosphatase 100 U/L (39-117); Anion Gap 16 (12-20); Aspartate Amino Transferase 12 U/L (5-31); Bilirubin Total 0.3 mg/dL (0.0-1.0); Blood Urea Nitrogen 16 mg/dL (9-16); Calcium 10.3 mg/dL (8.4-10.2); Carbon Dioxide 23 mmol/L (22-29); Chloride 105 mmol/L (96-108); Creatinine Clr Calc Pharmacy 79.3; Estimated Glomerular Filt Rate > 60; Glucose Random 131 mg/dL (60-115); Lipase 26 U/L (8-78); Potassium 3.7 mmol/L (3.3-5.1); Sodium 140 mmol/L (135-145); Total Protein 7.3 g/dL (6.5-8.0)
[2024-09-08 01:21] LABS: Basophils Absolute Auto 0.1 X10*3/uL (0.0-0.2); Basophils Percent Auto 0.4 % (0-2); Eosinophils Absolute Auto 0.4 X10*3/uL (0.0-0.4); Eosinophils Percent Auto 2.6 % (0-4); Hematocrit 43.4 % (37.0-47.0); Hemoglobin 14.9 g/dl (12.0-16.0); Imm Gran Pct Auto 0.7 % (0.0-0.4); Lymphocytes Absolute Auto 5.4 X10*3/uL (1.2-4.9); Lymphocytes Percent Auto 37.9 % (20-40); MANUAL DIFF FLAG SCAN; Mean Corpuscular HGB Conc 34.3 g/dl (31.0-35.0); Mean Corpuscular Volume 84.4 fL (80.0-98.0); Mean Platelet Volume 9.9 fL (9.4-12.3); Monocytes Absolute Auto 0.8 X10*3/uL (0.1-1.2); Monocytes Percent Auto 5.3 % (2-11); Neutrophils Absolute Auto 7.6 x10*3/uL (2.0-8.3); Neutrophils Percent Auto 53.1 % (45-73); Platelet Count 279 X10*3/uL (160-400); Red Blood Count 5.14 X10*6/uL (4.20-5.50); Red Cell Distribution Width 13.4 % (11.0-16.0); SCAN SMEAR FLAG 1; White Blood Count 14.4 X10*3/uL (4.8-10.8)
[2024-09-08 01:41] LABS: SLIDE REVIEW VERIFIED
--- NOTE | 2024-09-08 01:42 | ED_ITS ---
HPI - General Adult General Chief complaint: Abdominal Pain Stated complaint: kidney stone Time Seen by Provider: 09/08/24 00:55 History of Present Illness ED Provider: Mechelle HPI narrative: 49-year-old female with past medical history of nephrolithiasis reasoning for left flank pain and vomiting. Patient states that she experienced sudden onset left flank pain proximally an hour prior to presenting to the ED. She is also experiencing nausea and vomiting. She states that this feels similar to her prior kidney stones. She also endorses left lower quadrant abdominal pain, pressure when urinating however denies hematuria, vaginal bleeding, fevers, chills. Patient has no other complaints Related Data Previous Rx's ?Medication ?Instructions ?Recorded hydromorphone 2 mg tablet 2 mg PO Q6H PRN pain #14 tabs 05/01/23 (Dilaudid) ondansetron 4 mg disintegrating 4 mg PO Q6-8H PRN nausea and 05/01/23 tablet vomiting #10 tabs tamsulosin 0.4 mg capsule (Flomax) 0.4 mg PO BEDTIME #10 caps 05/01/23 Allergies Allergy/AdvReac Type Severity Reaction Status Date / Time erythromycin base Allergy Severe HIVES, Verified 09/08/24 00:51 [ERYTHROMYCIN BASE] SWELLING morphine [MORPHINE] Allergy Severe SWELLING,HI Verified 09/08/24 00:51 VES mushroom Allergy Severe SWELLING/HI Verified 09/08/24 00:51 VES codeine [Codeine] Allergy Intermediate HIVES/SWELL Verified 09/08/24 00:51 ING meperidine [From Demerol] Allergy Intermediate HIVES/SWELL Verified 09/08/24 00:51 ING metronidazole [From Flagyl] Allergy Intermediate HIVES/SWELL Verified 09/08/24 00:51 ING oxycodone [From Tylox] Allergy Intermediate HIVES/SWELL Verified 09/08/24 00:51 ING Penicillins Allergy Intermediate HIVES/SWELL Verified 09/08/24 00:51 ING Sulfa (Sulfonamide Allergy Intermediate HIVES/SWELL Verified 09/08/24 00:51 Antibiotics) ING tramadol [TRAMADOL] Allergy Unknown SWELLING Verified 09/08/24 00:51 ondansetron [From ZOFRAN] AdvReac Intermediate VOMITING Verified 09/08/24 00:51 codeine Allergy Unknown swelling, Uncoded 09/08/24 00:51 hives demerol Allergy Unknown swelling Uncoded 09/08/24 00:51 hives e-mycin Allergy Unknown swelling, Uncoded 09/08/24 00:51 hives morphine Allergy Unknown swelling, Uncoded 09/08/24 00:51 hives PCN Allergy Unknown swelling, Uncoded 09/08/24 00:51 hives sulfa Allergy Unknown swelling, Uncoded 09/08/24 00:51 hives toradol Allergy Unknown swelling, Uncoded 09/08/24 00:51 hives vicodin Allergy Unknown vomiting Uncoded 09/08/24 00:51 zofran Allergy Unknown vomiting Uncoded 09/08/24 00:51 From TORADOL AdvReac Severe VOMITING Uncoded 09/08/24 00:51 Review of Systems 2 Review of Systems: Patient endorses a flank pain, abdominal pain, nausea and vomiting Patient denies fevers, chills, chest pain, shortness of breath, diarrhea, head pain Yes all other systems are reviewed and are negative PMFSH Social History Social History Advance Directives: No Advance Directives Information Provided: Yes Do you have a plan to hurt others: No Plan Physical Exam ED Vital Signs: Vital Signs - 24 hr 09/08/24 00:49 09/08/24 01:59 Temperature 9705 F H 98.8 F Pulse Rate 88 77 Respiratory Rate 20 16 Blood Pressure 157/100 H 143/84 H Pulse Oximetry 97 94 Oxygen Delivery Method Room Air Room Air BMI result Body Mass Index 37.8 Patient appears to be in distress Lungs clear to auscultation bilaterally; normal S1-S2 regular rate rhythm Mild left lower quadrant abdominal tenderness to palpation; abdomen otherwise soft and nondistended Left CVA tenderness to palpation Medications Administered Discontinued Medications Generic Name Dose Route Start Last Admin Trade Name Freq PRN Reason Stop Dose Admin Hydromorphone HCl 0.5 mg 09/08/24 00:56 09/08/24 01:06 Hydromorphone Hcl 0.5 Mg/0.5 Ml Syringe IVPUSH 09/08/24 00:57 0.5 mg ONCE ONE Administration Protocol Metoclopramide HCl 10 mg 09/08/24 00:56 09/08/24 01:06 Metoclopramide Hcl 10 Mg/2 Ml Vial IVPUSH 09/08/24 00:57 10 mg ONCE ONE Administration Medical Decision Making Medical Decision Making [facility] Narrative: 49-year-old female with past medical history of kidney stones presenting for left flank pain. I am concerned for kidney stone and also considering UTI, pyelonephritis, constipation This is less likely diverticulitis given onset of symptoms Antiemetics and analgesics ordered Labs notable for leukocytosis, normal creatinine Patient signed out to night provider Differential Diagnosis Differential Diagnoses: The differential diagnosis associated with the presentation includes nephrolithiasis, UTI, pyelonephritis Lab Data 09/08/24 00:59 09/08/24 00:59 Labs: Lab Results 09/08/24 09/08/24 Range/Units 00:59 02:07 WBC 14.4 H (4.8-10.8) X10*3/uL RBC 5.14 (4.20-5.50) X10*6/uL Hgb 14.9 (12.0-16.0) g/dl Hct 43.4 (37.0-47.0) % MCV 84.4 (80.0-98.0) fL MCH 29.0 (27.0-33.0) pg MCHC 34.3 (31.0-35.0) g/dl RDW 13.4 (11.0-16.0) % Plt Count 279 (160-400) X10*3/uL MPV 9.9 (9.4-12.3) fL Immature Gran % (Auto) 0.7 H (0.0-0.4) % Neut % (Auto) 53.1 (45-73) % Lymph % (Auto) 37.9 (20-40) % [place] % (Auto) 5.3 (2-11) % Eos % (Auto) 2.6 (0-4) % Baso % (Auto) 0.4 (0-2) % Lymph # (Auto) 5.4 H (1.2-4.9) X10*3/uL [place] # (Auto) 0.8 (0.1-1.2) X10*3/uL Eos # (Auto) 0.4 (0.0-0.4) X10*3/uL Baso # (Auto) 0.1 (0.0-0.2) X10*3/uL Abs Immat Gran (auto) 0.10 H (0.00-0.03) X10*3/uL Absolute Neuts (auto) 7.6 (2.0-8.3) x10*3/uL Absolute Nucleated RBC 0.000 (0.0-0.012) X10*3/uL Nucleated RBC % (auto) 0.0 (0.0-0.2) /100WBC Smear Tech's Comments VERIFIED Sodium 140 (135-145) mmol/L Potassium 3.7 (3.3-5.1) mmol/L Chloride 105 (96-108) mmol/L Carbon Dioxide 23 (22-29) mmol/L Anion Gap 16 (12-20) BUN 16 (9-16) mg/dL Creatinine 0.88 (0.5-1.4) mg/dL Estim Creat Clear Calc 79.3 Estimated GFR > 60 Random Glucose 131 H (60-115) mg/dL Calcium 10.3 H D (8.4-10.2) mg/dL Total Bilirubin 0.3 (0.0-1.0) mg/dL AST 12 (5-31) U/L ALT 18 (0-31) U/L Alkaline Phosphatase 100 (39-117) U/L Total Protein 7.3 (6.5-8.0) g/dL Albumin 4.4 (3.5-5.0) g/dL Lipase 26 (8-78) U/L Urine Color Yellow Urine Appearance Cloudy Urine pH 6.0 (5.0-9.0) Ur Specific [place] 1.015 (1.005-1.025) Urine Protein 30 (1+) H (Neg-Trace) mg/dL Urine Glucose (UA) Negative (Negative) mg/dL Urine Ketones Negative (Negative) mg/dL Urine Blood Large (3+) H (Negative) Urine Nitrite Negative (Negative) Ur Leukocyte Esterase Small (1+) H (Negative) Urine Test NEGATIVE (NEGATIVE) Discharge Plan Discharge Clinical Impression: Acute left flank pain Prescriptions: No Action hydromorphone [Dilaudid] 2 mg tablet 2 mg PO Q6H PRN (Reason: pain) Qty: 14 0RF Rx Instructions: Partial Fill upon patient request. ondansetron 4 mg tablet,disintegrating 4 mg PO Q6-8H PRN (Reason: nausea and vomiting) Qty: 10 0RF tamsulosin [Flomax] 0.4 mg capsule 0.4 mg PO BEDTIME Qty: 10 0RF Print Language: Chinese
[2024-09-08 01:59] VITALS: BP 143/84; PULSE 77; RESP 16; TEMP 37.1; O2SAT 94
--- NOTE | 2024-09-08 02:00 | MHC.EDTECH ---
This tech assumed care of patient,rounding and introduced self to patient,vitals taken,EKG completed per order and signed by provider,patient ambulated with a steady gait to the bathroom,urine sample obtained and sent to lab,friend at bedside.call larsen in reach
[2024-09-08 02:12] LABS: Appearance Urine Cloudy; Color Urine Yellow; Glucose Urine UA Negative (Negative); Leukocyte Esterase Urine Small (1+) (Negative); Nitrite Urine Negative (Negative); Specific Gravity - Urine 1.015 (1.005-1.025); UMIC TRIGGER UACC YES; Urine Blood Large (3+) (Negative); Urine Ketones Negative (Negative); Urine Protein 30 (1+) mg/dL (Neg-Trace)
[2024-09-08 02:13] LABS: UPreg QC Valid YES; Urine Pregnancy NEGATIVE (NEGATIVE)
[2024-09-08 03:01] LABS: Bacteria Urine 3+ (None Seen); Hyaline Casts Urine 0-2 /LPF (0-2); RBC Urine >20 /HPF (0-2); Squamous Epithelial Cell Urine >20 /HPF (0-2); UACC Culture Trigger YES; WBC Urine 21-50 /HPF (0-5)
[2024-09-08] MEDS: levoFLOXacin 500 MG TABLET PO (04:12)
[2024-09-08] MEDS: Tamsulosin HCL 0.4 MG CAPSULE PO (04:13)
[2024-09-08] MEDS: 0.9 % Sodium Chloride 1,000 ML 999 ML IV (04:13)
[2024-09-08 04:14] VITALS: BP 116/66; PULSE 77; RESP 16; TEMP 37.1; O2SAT 95
[2024-09-08 06:20] VITALS: BP 120/71; PULSE 80; RESP 16; TEMP 36.9; O2SAT 95
== END 2024-09-08 06:30 | disposition home or self-care (01) ==
PROVIDERS: Student in an Organized Health Care Education/Training Program; Emergency Provider Internal Medicine; PCP Internal Medicine
DX: R10.9 Unspecified abdominal pain (principal); R11.2 Nausea with vomiting, unspecified; R94.31 Abnormal electrocardiogram [ECG] [EKG]; Z79.899 Other long term (current) drug therapy
CPT/HCPCS: 36415; 74176; 80053; 81001; 81025; 83690; 85025; 87086; 93005; 96361; 96374; 96375; 96376; 99284; 99285; J1171; J2765

== ENCOUNTER → 2024-09-08 00:56 | Outpatient (BNV) | payer SELFPAY | PROVIDERS: Emergency Provider Internal Medicine; PCP Internal Medicine; Visit Provider Internal Medicine | DX: R94.31 Abnormal electrocardiogram [ECG] [EKG] (principal) | CPT/HCPCS: 93010 ==

== ENCOUNTER 2025-08-18 08:42 | Emergency (ER) | payer OTHER, SELFPAY ==
--- NOTE | ~2025-08-18 | XR_ITS ---
EXAMINATION: XR CHEST CLINICAL INFORMATION: cough COMPARISON: Chest 06/28/2020 TECHNIQUE: 2 views of the chest were obtained. FINDINGS: No significant abnormality is noted involving the heart, lungs, mediastinum, bony thorax or soft tissues. XR/XR chest 2V IMPRESSION: Unremarkable chest examination. Electronically signed by: Aung Soni MD 08/18/2025 09:29 AM EDT RP
[2025-08-18 08:43] VITALS: BP 148/74; PULSE 92; RESP 18; TEMP 37; O2SAT 98; BMI 42.1
--- NOTE | 2025-08-18 09:04 | ED_ITS ---
HPI - URI/Sore Throat General Chief Complaint: Upper Respiratory Symptoms Stated Complaint: SOB, cough, body aches, fever Time Seen by Provider: 08/18/25 08:50 Source: patient and RN notes reviewed Mode of arrival: ambulatory Limitations: no limitations History of Present Illness ED Provider: Flavia Adames PA-C HPI Narrative: This is a 50-year-old female, with a hx of HTN and nephroliathiasis, who presents emergency department with concerns of ongoing cough, congestion, intermittent fevers and chills for the last 2-1/2 weeks. Patient states that about 2-1/2 weeks ago she developed congestion, dry cough. She states that last week she was seen at [facility] urgent care where she was started on azithromycin, prednisone, and Tessalon Perles. She states that she completed the full course of the azithromycin, and took her last dose of prednisone this morning, however she states that her symptoms have not improved. She also reports that she has been taking DayQuil, NyQuil, Tylenol without any relief. She states that yesterday she developed diarrhea, did have a temperature of a 102? F. she reports chest pain that only occurs with coughing, she does report some shortness for breath with coughing. She denies any palpitations, abdominal pain, nausea or vomiting. No urinary symptoms. And no other complaints or concerns at this time. MD elicited complaint: fever, cough and nasal congestion Onset (ago): week(s) Consistency: constant Severity: moderate Able to tolerate fluids by mouth: Yes Exacerbating factors: nothing Relieving factors: nothing Associated symptoms: fever, chills, nasal congestion, cough, chest pain, shortness of breath and diarrhea Treatments prior to arrival: acetaminophen and cold medicine Related Data Home Medications ?Medication ?Instructions ?Recorded ?Confirmed bupropion HCl 150 mg tablet,12 hr 150 mg PO DAILY 07/27 07/20 sustained-release (Wellbutrin SR) losartan 50 mg tablet mg PO 08/13/25 omeprazole 40 mg capsule,delayed mg PO 08/13/25 release verapamil 80 mg tablet mg PO 08/13/25 Previous Rx's ?Medication ?Instructions ?Recorded cefpodoxime 200 mg tablet 200 mg PO BID 7 days #14 tab s 08/18/25 doxycycline hyclate 100 mg capsule 100 mg PO BID 7 day s #14 caps 08/18/25 fluconazole 150 mg tablet 150 mg PO Q3D 2 doses #2 tab s 08/18/25 prednisone 20 mg tablet 20 mg PO DAILY 3 days #3 tab s 08/18/25 Allergies Allergy/AdvReac Type Severity Reaction Status Date / Time erythromycin base Allergy Severe HIVES, Verified 08/18/25 08:46 (ERYTHROMYCIN BASE) SWELLING morphine (MORPHINE) Allergy Severe SWELLING,HI Verified 08/18/25 08:46 VES mushroom Allergy Severe SWELLING/HI Verified 08/18/25 08:46 VES codeine (Codeine) Allergy Intermediate HIVES/SWELL Verified 08/18/25 08:46 ING meperidine (From Demerol) Allergy Intermediate HIVES/SWELL Verified 08/18/25 08:46 ING metronidazole (From Flagyl) Allergy Intermediate HIVES/SWELL Verified 08/18/25 08:46 ING oxycodone (From Tylox) Allergy Intermediate HIVES/SWELL Verified 08/18/25 08:46 ING Penicillins Allergy Intermediate HIVES/SWELL Verified 08/18/25 08:46 ING Sulfa (Sulfonamide Allergy Intermediate HIVES/SWELL Verified 08/18/25 08:46 Antibiotics) ING tramadol (TRAMADOL) Allergy Unknown SWELLING Verified 08/18/25 08:46 ondansetron (From ZOFRAN) AdvReac Intermediate VOMITING Verified 08/18/25 08:46 codeine Allergy Unknown swelling, Uncoded 08/18/25 08:46 hives demerol Allergy Unknown swelling Uncoded 08/18/25 08:46 hives e-mycin Allergy Unknown swelling, Uncoded 08/18/25 08:46 hives morphine Allergy Unknown swelling, Uncoded 08/18/25 08:46 hives PCN Allergy Unknown swelling, Uncoded 08/18/25 08:46 hives sulfa Allergy Unknown swelling, Uncoded 08/18/25 08:46 hives toradol Allergy Unknown swelling, Uncoded 08/18/25 08:46 hives vicodin Allergy Unknown vomiting Uncoded 08/18/25 08:46 From TORADOL AdvReac Severe VOMITING Uncoded 08/18/25 08:46 Review of Systems 2 Review of Systems: Constitutional : +Fever, No Chills ENT/Mouth : No sore throat, + Rhinorrhea Eyes: No Eye Pain, No Swelling, No Redness Cardiovascular : No Chest Pain, No SOB Respiratory : + Cough, No Sputum Gastrointestinal : No Nausea, No Vomiting, No Diarrhea, No abdominal Pain Genitourinary : No Dysuria, No Hematuria Musculoskeletal : No joint pain, No Myalgias, No Joint Swelling Skin : No Skin Lesions Neuro : No Weakness, No Numbness, No Headache All other systems reviewed and are negative Yes all other systems are reviewed and are negative Constitutional: Constitutional: Reports as per HPI [facility] Past Medical History Medical History (Updated 08/18/25 @ 11:51 by DIANELYS Azar) Hx of nephrolithotomy with removal of calculi Surgical History (Updated 08/13/25 @ 15:14 by Suze Flores CMA) Hx of section Hx of hysterectomy Hx of cholecystectomy Hx of appendectomy Hx of tonsillectomy Family History Family History (Updated 08/13/25 @ 15:16 by Suze Flores CMA) Mother Stroke Brain injury Hypertension Kidney disease Lung cancer Father Hypertension Diabetes 1.5, managed as type 2 Son Phenylketonuria Kidney disease Social History Social History (Updated 08/13/25 @ 15:16 by Suze Flores CMA) Alcohol intake: current Alcohol intake frequency: holidays/special occasions only Tobacco use type: Cigarette Cigarettes Per Day: 3 Physical Exam 2 Vital Signs: Vital Signs: Last Vital Signs Temp 98.6 F 08/18/25 13:04 Pulse 77 08/18/25 13:04 Resp 17 08/18/25 13:04 BP 115/77 08/18/25 13:04 Pulse Ox 98 08/18/25 13:04 O2 Del Method Room Air 08/18/25 13:04 BMI result Body Mass Index 42.1 Const: General: cooperative, comfortable and no acute distress O rientation/consciousness: patient oriented x3 Limitations: no limitations HEENT: Head: Yes normal to inspection, Yes normocephalic and Yes atraumatic Ears: hearing grossly normal bilaterally and TM's normal bilaterally General nose exam: Normal external nose present Face and sinus: Yes normal facial exam Mouth: Normal oral and palatal mucosa present, oropharynx normal and moist mucous membranes Throat: Yes posterior oropharynx normal, Yes tonsils normal and Yes uvula midline Eyes: General: appearance normal, both eyes and all related structures E yelids: Yes eyelids normal Conjunctivae: conjunctivae normal Sclerae: s clerae normal Pupils: Equal, round and reactive pupils present EOM: EOMs intact bilaterally Neck: Neck: Yes normal visual inspection, Yes full ROM and Yes no lymphadenopathy Lymphatic: no lymphadenopathy noted Chest: Chest palpation & inspection: normal inspection of the chest Resp: Other: Frequent dry cough heard on exam. Rhonchi auscultated in bilateral lung daly. Effort & Inspection: normal respiratory effort and able to speak in complete sentences Cardio: Rate: regular rate Rhythm: regular rhythm Heart sounds: S1 normal heart sound present and S2 normal heart sound present GI: Inspection: Yes normal to inspection Skin: General skin exam: no rashes or lesions noted Trauma: no lacerations or abrasions Wounds: no wounds Neuro: General: patient oriented x3 and moves all extremities Cranial nerves: Yes Equal, round and reactive pupils present Extrem: General: Yes normal to inspection Right upper extremity: normal to inspection Left upper extremity: normal to inspection Right lower extremity: normal to inspection Left lower extremity: normal to inspection Medications Administered Discontinued Medications Generic Name Dose Route Start Last Admin Trade Name Freq PRN Reason Stop Dose Admin Albuterol Sulfate 2.5 mg/ 0 mg 08/18/25 11:53 08/18/25 11:59 Albuterol/Ipratropium 3 ml INHALE 08/18/25 11:54 5 dose ONCE ONE Administration Medical Decision Making Medical Decision Making [facility] Narrative: This is a 50-year-old female, with a hx of HTN and nephroliathiasis, who presents emergency department with concerns of ongoing cough, congestion, intermittent fevers and chills for the last 2-1/2 weeks. On arrival, pt mildly hypertensive at 148/74, oxygen saturation 98% on room air. Lungs are rhonchorous, otherwise no wheezes appreciated. She is speaking in full sentences, dry cough heard throughout examination. Will obtain x-ray, labs, viral swabs, and EKG. 11:47 AM 08/18/2025 (Flavia Adames PA-C): Patient's overall workup today was reassuring. She has slight leukocytosis at 12.7, however she has been on prednisone. Lungs reassessed, lungs with slight rhonchi noted however with better air movement, no wheezes appreciated. Chemistry revealing no significant electrolyte derangement. Slight elevation in AST and ALT, likely viral in etiology or it could be from [id number] cold medicines that she has been taking. Chest x-ray is unremarkable. EKG nonischemic. Symptoms consistent with bronchitis. Will treat with cefpodoxime and doxycycline. We will also continue prednisone for several more days. She has previously tolerated cephalosporins without difficulty. Also discharged on fluconazole for prevention of yeast as she states that she often times gets yeast infections after being on antibiotics. Given strict return precautions. She will follow- up with her primary care physician. She understands and agrees with plan. Patient stable for discharge. Differential Diagnosis Differential Diagnoses: The differential diagnosis associated with the presentation includes Bronchitis, URI, COVID, flu, pneumonia, COPD exacerbation Admission/Observation Consideration of admission/observation: Escalation of care including admission/observation considered Lab Data [facility] Lab Attestation statement: I reviewed the patient's lab results. See [facility] 08/18/25 10:08 08/18/25 10:08 Labs: Lab Results 08/18/25 08/18/25 Range/Units 09:01 10:08 WBC 12.7 H (4.8-10.8) X10*3/uL RBC 4.76 (4.20-5.50) X10*6/uL Hgb 13.5 (12.0-16.0) g/dl Hct 40.8 (37.0-47.0) % MCV 85.7 (80.0-98.0) fL MCH 28.4 (27.0-33.0) pg MCHC 33.1 (31.0-35.0) g/dl RDW 13.9 (11.0-16.0) % Plt Count 211 (160-400) X10*3/uL MPV 10.1 (9.4-12.3) fL Immature Gran % (Auto) 1.8 H (0.0-0.4) % Neut % (Auto) 71.4 (45-73) % Lymph % (Auto) 21.7 (20-40) % [place] % (Auto) 4.1 (2-11) % Eos % (Auto) 0.6 (0-4) % Baso % (Auto) 0.4 (0-2) % Lymph # (Auto) 2.8 (1.2-4.9) X10*3/uL [place] # (Auto) 0.5 (0.1-1.2) X10*3/uL Eos # (Auto) 0.1 (0.0-0.4) X10*3/uL Baso # (Auto) 0.1 (0.0-0.2) X10*3/uL Abs Immat Gran (auto) 0.23 H (0.00-0.03) X10*3/uL Absolute Neuts (auto) 9.1 H (2.0-8.3) x10*3/uL Absolute Nucleated RBC 0.000 (0.0-0.012) X10*3/uL Nucleated RBC % (auto) 0.0 (0.0-0.2) /100WBC Sodium 141 (135-145) mmol/L Potassium 3.8 (3.3-5.1) mmol/L Chloride 106 (96-108) mmol/L Carbon Dioxide 25 (22-29) mmol/L Anion Gap 14 (12-20) BUN 20 H (9-16) mg/dL Creatinine 0.73 (0.5-1.4) mg/dL Estim Creat Clear Calc 100.5 Estimated GFR > 60 Random Glucose 102 (60-115) mg/dL Calcium 9.0 D (8.4-10.2) mg/dL Magnesium 1.9 (1.6-2.6) mg/dL Total Bilirubin 0.3 (0.0-1.0) mg/dL Direct Bilirubin 0.1 (0.0-0.5) mg/dL AST 33 H (5-31) U/L ALT 33 H (0-31) U/L Alkaline Phosphatase 84 (39-117) U/L Troponin I High Sens < 2.7 (<3.5-17.0) ng/L NT-Pro-B Natriuret Pep 175.6 (<300) pg/mL Total Protein 6.8 (6.5-8.0) g/dL Albumin 4.5 (3.5-5.0) g/dL Lipase 22 (8-78) U/L COVID-19 (NAV) Negative (Negative) COVID-19 Clin Com See Note Influenza Type A (COLBY) Negative (Negative) Influenza Type B ([facility]BY) Negative (Negative) Influenza A & B Note See Note Independent Interpretation I performed an independent interpretation of an: EKG Interpretation: EKG normal sinus rhythm at a ventricular rate of 82 beats per minute, NE interval 174, QT QTC 374/436, no STEMI. Radiology Impression Discussion of test interpretation with radiology: I have reviewed the radiologist's reading. Radiologist Impression: FINDINGS: No significant abnormality is noted involving the heart, lungs, mediastinum, bony thorax or soft tissues. XR/XR chest 2V IMPRESSION: Unremarkable chest examination. Electronically signed by: Aung Soni MD 08/18/2025 09:29 AM EDT RP Dictated By: Aung Soni MD Discharge Plan Discharge Clinical Impression: Bronchitis Patient Disposition: Home, Self-Care Instructions: Acute Bronchitis (ED) Additional Instructions: You were seen in the emergency department due to ongoing cough. Your chest x-ray does not show a pneumonia. Your blood work and EKG were reassuring. Prioritize getting plenty of rest, and drinking plenty of fluids. You likely are experiencing bronchitis, this is inflammation in your bronchials which can be caused by a virus however given the length of your symptoms, we are starting you on some antibiotics. Please continue all at-home medications as prescribed. I am also going to provide you with a tapering course of prednisone. Please take as prescribed. Please take prescribed antibiotics as directed, finish the entire courses. I am also prescribing you Diflucan if you develop a yeast infection. Continue using the inhaler that you were given. Please follow-up with your primary care physician, call today to make an appointment. If any new or worsening symptoms occur including but not limited to worsening shortness for breath, chest pain, fevers not responding to Tylenol or Motrin, please return for re-evaluation. Prescriptions: New prednisone 20 mg tablet 20 mg PO DAILY 3 Days Qty: 3 0RF doxycycline hyclate 100 mg capsule 100 mg PO BID 7 Days Qty: 14 0RF cefpodoxime 200 mg tablet 200 mg PO BID 7 Days Qty: 14 0RF Rx Instructions: must administer with a meal/food fluconazole 150 mg tablet 150 mg PO Q3D Qty: 2 0RF No Action losartan 50 mg tablet PO bupropion HCl [Wellbutrin SR] 150 mg tablet sustained-release 12 hr 150 mg PO DAILY omeprazole 40 mg capsule,delayed release(DR/EC) PO verapamil 80 mg tablet PO Stand Alone Forms: Work/School Release Interventions: ED Discharge Assessment Last Done: 08/18/25 13:04 Discharge Date/Time: 08/18/25 13:13 Print Language: Arabic
[2025-08-18 09:07] VITALS: O2SAT 98
--- NOTE | 2025-08-18 09:10 | PC.NURSE ---
Pt with 2 1/2 week hx of cough congestion, Dx with bronchitis by primary and placed on zpack and prednisone. Now states febrile at home and worsening cough.
--- NOTE | 2025-08-18 09:19 | ECG_ITS ---
Test Reason : cp Blood Pressure : */* mmHG Vent. Rate : 82 BPM Atrial Rate : 82 BPM P-R Int : 174 ms QRS Dur : 76 ms QT Int : 374 ms P-R-T Axes : 31 3 22 degrees QTcB Int : 436 ms Normal sinus rhythm Cannot rule out Anterior infarct , age undetermined Abnormal ECG When compared with ECG of 08-Sep-2024 01:44, No significant change was found Referred By: Flavia Adames Electronically Signed By: Melvin Mccarthy
--- NOTE | 2025-08-18 09:44 | PC.NURSE ---
Pt roomed and placed on 11/27 monitor VSS IVF infusing as ordered. Pt denies complaints at this time. Admitted following syncopal episode, states 6 weeks .
[2025-08-18 09:45] VITALS: BP 108/56; PULSE 70; RESP 16; O2SAT 100
--- OUTSIDE RECORDS SUMMARY | 2025-08-18 10:14 | XMS_ITS | Clinical Summary ---
Author Organization [facility] Address [address] [place] [address] Phone Care Team Providers Care Hotel Front Office Manager Name Role Phone Woody Boo MD Primary Care Provider [phone] [phone] Allergies Active Allergy Reactions Criticality Noted Date Comments Codeine Hives,Swelling High 10/01/2024 Meperidine Hives,Swelling High 10/01/2024 Erythromycin Hives,Swelling High 10/01/2024 Morphine Hives,Swelling High 10/01/2024 Penicillins Hives,Swelling High 10/01/2024 Oxycodone-Acetaminophen Hives,Swelling High 10/01/20 24 Sulfa (Sulfonamide Antibiotics) Hives,Swelling High 10/01/2024 Tramadol Nausea And Vomiting High 10/01/2024 Hydrocodone-Acetaminophen High 10/01/2024 Medications losartan (COZAAR) 50 mg tablet Take 1 tablet (50 mg total) by mouth 1 (one) time each day. Active verapamiL (CALAN) 80 mg tablet Take 1 tablet (80 mg total) by mouth 1 (one) time each day. Active omeprazole (PriLOSEC) [address] capsule Take 1 capsule (40 mg total) by mouth 1 (one) time each day. Do not crush or chew. Active Surgical History Surgery Date Site/Laterality Comments LITHOTRIPSY 07/2018 PROCEDURE: HISTORICAL LITHOTRIPSY OTHER SURGICAL HISTORY 11/1981 PROCEDURE: MT TONSILLECTOMY & ADENOIDECTOMY AGE 12/> SECTION PROCEDURE: HISTORICAL DELIVERY OVARIAN CYST REMOVAL PROCEDURE: MT OVARIAN CYSTECTOMY UNI/BI OTHER SURGICAL HISTORY PROCEDURE: MT TX MISSED FIRST TRIMESTER SURGICAL TOTAL ABDOMINAL HYSTERECTOMY HYSTERECTOMY SECTION, LOW TRANSVERSE CHOLECYSTECTOMY APPENDECTOMY Medical History Medical History Date Comments Abdominal pain DX:Abdominal elin n Atypical nevi DX:Atypical nevi EIN (endometrial intraepithe lial neoplasia) DX:EIN (endometrial intraepi thelial neoplasia) Hemiplegic migraine DX:Hemiplegi c migraine Hypertension DX:Hypertension Medullary sponge kidney DX:Medul mihai sponge kidney Obesity DX:Obesity Tobacco abuse DX:Tobacco abuse Ureterolithiasis DX:Ureterolithi asis GERD (gastroesophageal reflux disease) History of transfusion Cancer ([facility] V24, [facility] V28) Uterine cancer ([facility] V24, [facility] V28) PONV (postoperative nausea and vomiting) Social History Tobacco Use Types Packs/Day Years Used Date Smoking Tobacco: Every Day Cigarettes Passive Smoke Exposure: Current Smokeless Tobacco: Never Tobacco Cessation:Ready to Q uit: Not Asked; Counseling Given: Not Answered Alcohol Use Standard Drinks/Week Comments Not Currently 0 (1 standard drink = 0.6 oz pur e alcohol) Comments No Sex and Gender Information Value Date Recorded Sex Assigned at Female 10/10/2024 9:37 AM EST Legal Sex Female 12:53 AM EST Gender Identity Female 10/10/2024 9:37 AM EST Sexual Orientation Straight 10/10/2024 9: 37 AM EST Obstetrics History Last Filed Vital Signs Vital Sign Reading Time Taken Comments Blood Pressure 127/87 10/10/2024 12:41 PM EST Pulse 84 10/10/2024 12:41 PM EST Temperature 36.4 C (97.5 F) 10/10/2024 12:15 PM EST Respiratory Rate 16 10/10/2024 10:01 AM EST Oxygen Saturation 95% 10/10/2024 12:41 PM EST Inhaled Oxygen Concentration - - Weight 99.8 kg (220 lb) 10/01/2024 2:00 PM EST Height 154.9 cm (5' 1 ) 10/01/2024 2:00 PM EST Body Mass Index 41.57 10/01/2024 2:00 PM EST Plan of Treatment Upcoming Encounters Date Type Department Care Team (Latest Contact Info) Description 11/13/2025 7:30 AM EST Hospital Encounter [facility] Main OR [address] [place] [phone] Tommy Marie MD [address] [place] [address] 11/13/2025 7:30 AM EST - 11/13/2025 8:15 AM EST Surgery [facility] Main OR [address] [place] [phone] Tommy Marie MD [address] [place] [address] ESWL LEFT [[id number] (CPT )] Scheduled Procedures Name Priority Associated Diagnoses Date/Ti me ESWL Calculus of kidney 11/13/2025 7:30 AM EST Health Maintenance Due Date Last Done Comments Breast Cancer Screening 1975 Hepatitis B Vaccines (1 of 3 - 19+ 3-dose series) 1994 Cervical Cancer Screening: Pap Smear 1996 Pneumococcal Vaccine: 50+ Years (2 of 2 - PCV) 10/31/2016 10/31/2015 Cholesterol Screening (Lipid Panel) 10/29/2022 Colorectal Cancer Screening: Colonoscopy 10/29/2022 HIV Screening 10/29/2022 Hepatitis C Screening 10/29/2022 Social Influencers of Health Screening 10/29/2022 Hypertension/CHF/CAD Annual BMP Blood Test 10/10/2024 Depression Screening 11/26/2024 Zoster Vaccines (1 of 2) 2025 COVID-19 Vaccine ( season) 2025 12/06/2020, 11/16/2020 Influenza Vaccine (#1) 2025 , 09/17/2016, 10/31/2015 DTaP,Tdap,and Td Vaccines (9 - Td or Tdap) 03/07/2029 03/07/2019, 09/04/2015, 05/23/2007, Additional history exists IPV Vaccines Completed 08/18/1980, 10/26, 1975, Additional history exists MMR Vaccines Completed 02/15/2018, 01/2013, 05/06/1976 HIB Vaccines Aged Out No longer eligi ble based on patient's age to complete this topic HPV Vaccines Aged Out No longer eligi ble based on patient's age to complete this topic Hepatitis A Vaccines Aged Out No long er eligible based on patient's age to complete this topic Meningococcal ACWY Vaccine Aged Out N o longer eligible based on patient's age to complete this topic Meningococcal B Vaccine Aged Out No l onger eligible based on patient's age to complete this topic RSV Immunization Patients Under 20 months Aged Out No longer eligible based on patient's age to complete this topic Varicella Vaccines Aged Out No longer eligible based on patient's age to complete this topic Insurance [facility] Advance Directives Documents on File Type Date Recorded 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 Health Care Decision (hx) 09/20/2016 AD OWEN DIRECTIVE Health Care Decision (hx) 09/20/2016 AD OWEN DIRECTIVE Health Care Decision (hx) 09/20/2016 AD OWEN DIRECTIVE Health Care Decision (hx) 09/20/2016 AD OWEN DIRECTIVE Health Care Decision (hx) 09/20/2016 AD OWEN DIRECTIVE Health Care Decision (hx) 09/20/2016 AD OWEN DIRECTIVE Health Care Decision (hx) 09/20/2016 AD OWEN DIRECTIVE Health Care Decision (hx) 09/20/2016 AD OWEN DIRECTIVE Health Care Decision (hx) 09/20/2016 AD OWEN DIRECTIVE Health Care Decision (hx) 09/20/2016 AD OWEN DIRECTIVE Health Care Decision (hx) 09/20/2016 AD OWEN DIRECTIVE Health Care Decision (hx) 09/20/2016 AD OWEN DIRECTIVE Health Care Decision (hx) 09/20/2016 AD OWEN DIRECTIVE Health Care Decision (hx) 09/20/2016 AD OWEN DIRECTIVE Health Care Decision (hx) 09/20/2016 AD OWEN DIRECTIVE Health Care Decision (hx) 09/18/2016 AD OWEN DIRECTIVE Health Care Decision (hx) 09/18/2016 AD OWEN DIRECTIVE Health Care Decision (hx) 09/18/2016 AD OWEN DIRECTIVE Health Care Decision (hx) 09/18/2016 AD OWEN DIRECTIVE Health Care Decision (hx) 09/18/2016 AD OWEN DIRECTIVE Health Care Decision (hx) 09/18/2016 AD OWEN DIRECTIVE Health Care Decision (hx) 09/18/2016 AD OWEN DIRECTIVE Health Care Decision (hx) 09/18/2016 AD OWEN DIRECTIVE Health Care Decision (hx) 09/18/2016 AD OWEN DIRECTIVE Health Care Decision (hx) 09/18/2016 AD OWEN DIRECTIVE Health Care Decision (hx) 09/18/2016 AD OWEN DIRECTIVE Health Care Decision (hx) 09/18/2016 AD OWEN DIRECTIVE Health Care Decision (hx) 09/18/2016 AD OWEN DIRECTIVE Health Care Decision (hx) 09/18/2016 AD OWEN DIRECTIVE Health Care Decision (hx) 09/18/2016 AD OWEN DIRECTIVE Care Teams Hotel Front Office Manager Relationship Specialty Start Date End Date Woody Boo MD [address] [place] [phone] PCP - General Internal Medicine 12/17/20
--- OUTSIDE RECORDS SUMMARY | 2025-08-18 10:14 | XMS_ITS | Encounter Summary ---
Author Organization [facility] Address [address] [place] [address] Care Team Providers Care Tennis Net Maker Name Role Phone Woody Boo MD Primary Care Provider [phone] [phone] Encounter Details Date Type Department Care Team (Late st Contact Info) Description 01/07/2025 Lab Requisition [facility] Lab [address] [facility] [place] [phone] Salma Lopez PA [address] [place] [address] Urinary tract infection, site not specified Social History Tobacco Use Types Packs/Day Years Used Date Smoking Tobacco: Every Day Cigarettes Passive Smoke Exposure: Current Smokeless Tobacco: Never Alcohol Use Standard Drinks/Week Comments Not Currently 0 (1 standard drink = 0.6 oz pur e alcohol) Comments No Sex and Gender Information Value Date Recorded Sex Assigned at Female 10/10/2024 9:37 AM EST Legal Sex Female 12:53 AM EST Gender Identity Female 10/10/2024 9:37 AM EST Sexual Orientation Straight 10/10/2024 9: 37 AM EST documented as of this encounter Plan of Treatment Upcoming Encounters Date Type Department Care Team (Latest Contact Info) Description 11/13/2025 7:30 AM EST Hospital Encounter [facility] Main OR [address] [place] [phone] Tommy Marie MD [address] [place] [address] 11/13/2025 7:30 AM EST - 11/13/2025 8:[address] [facility] Main OR [address] [place] [phone] Tommy Marie MD [address] [place] [address] ESWL LEFT [[id number] (CPT )] Scheduled Procedures Name Priority Associated Diagnoses Date/Ti me ESWL Calculus of kidney 11/13/2025 7:30 AM EST documented as of this encounter Procedures Procedure Name Priority Date/Time Associated Diagnosis Comments CULTURE URINE Routine 01/07/2025 4:00 PM EST Urinary tract infection, site not specified documented in this encounter Results * Culture urine (01/07/2025 4:00 PM EST) Culture, Urine 10,000-49,000 CFU/mL Mixed urogenital luli, no uropathogens present. Suggest repeat specimen if clinically indicated. 01/09/2025 2:08 PM EST [facility] Urine Urine specimen obtained by clean catch procedure / Unknown Non-blood Collection / Unknown 01/07/2025 4:00 PM EST 01/07/2025 6:23 PM EST us [place] [facility] MICROBIOLOGY - GENERAL ORD ERABLES Final Result [facility] [address] [place] [address], documented in this encounter Visit Diagnoses Diagnosis Urinary tract infection, site not specified Calculus of kidney documented in this encounter Care Teams Tennis Net Maker Relationship Specialty Start Date End Date Woody Boo MD [address] [place] [phone] PCP - General Internal Medicine 12/17/20 documented as of this encounter
--- OUTSIDE RECORDS SUMMARY | 2025-08-18 10:14 | XMS_ITS | Encounter Summary ---
Author Organization [facility] Address [address] [place] [address] Care Team Providers Care Vacuum Conditioner Operator Name Role Phone Woody Boo MD Primary Care Provider [phone] [phone] Encounter Details Date Type Department Care Team (Late st Contact Info) Description 12/31/[address] [facility] Lab [address] [facility] [place] [phone] Salma Lopez PA [address] [facility] [address] [place] [phone] Calculus of kidney Social History Tobacco Use Types Packs/Day Years [...] Description 11/13/2025 7:30 AM EST Hospital Encounter [facility] Main OR [address] [place] [phone] Tommy Marie MD [address] [place] [address] 11/13/2025 7:30 AM EST - 11/13/2025 8:15 AM EST Surgery [facility] Main OR [address] [place] [phone] Tommy Marie MD [address] [facility] [address] [place] [address] ESWL LEFT [[id number] (CPT )] Scheduled Procedures Name Priority Associated Diagnoses Date/Ti me ESWL Calculus of kidney 11/13/2025 7:30 AM EST documented as of this encounter Procedures Procedure Name Priority Date/Time Associated Diagnosis Comments VITAMIN D 25 HYDROXY Routine 12/31/2024 3:28 PM EST Calculus of kidney PARATHYROID HORMONE INTACT Routine 12/31/2024 3:28 PM EST Calculus of kidney documented in this encounter Results * (ABNORMAL) Vitamin D 25 hydroxy (12/31/2024 3:28 PM EST) Vit D, 25-Hydroxy 13.2(L) 30.0 - 80.0 ng/mL LAB CHEMISTRY METHOD 12/31/2024 7:50 PM EST [facility] Blood Venous blood specimen / Unknown 12/31/2024 3:28 PM EST 12/31/2024 7:02 PM EST us [place] [facility] BLOOD ORDERABLES Final Res ult [facility] [address] [place] [address], * Parathyroid hormone intact (12/31/2024 3:28 PM EST) PTH 67.9 18.5 - 88.0 pcg/mL LAB CHEMISTRY METHOD 12/31/2024 7:51 PM EST [facility] Blood Venous blood specimen / Unknown 12/31/2024 3:28 PM EST 12/31/2024 7:02 PM EST us [place] [facility] BLOOD ORDERABLES Final Res ult [facility] [address] [place] [address], documented in this encounter Visit Diagnoses Diagnosis Calculus of kidney Calculus of kidney documented in this encounter Care Teams Vacuum Conditioner Operator Relationship Specialty Start Date End Date Woody Boo MD [address] [place] [phone] PCP - General Internal Medicine 12/17/20 documented as of this encounter
[2025-08-18 10:42] LABS: Calcium 9.0 mg/dL (8.4-10.2); Chloride 106 mmol/L (96-108); Potassium 3.8 mmol/L (3.3-5.1); Sodium 141 mmol/L (135-145)
[2025-08-18 11:53] VITALS: PULSE 78; RESP 18; O2SAT 98
[2025-08-18] MEDS: Albuterol Sulfate 2.5 MG, Albuterol/Iprat 2.5/0.5MG 3 ML 3 ML INHALE (11:59)
[2025-08-18 13:04] VITALS: BP 115/77; PULSE 77; RESP 17; TEMP 37; O2SAT 98
== END 2025-08-18 13:13 | disposition home or self-care (01) ==
PROVIDERS: Physician Assistant Medical; Emergency Provider Emergency Medicine; PCP Internal Medicine
DX: R06.02 Shortness of breath (principal); M79.10 Myalgia, unspecified site; R50.9 Fever, unspecified; R07.89 Other chest pain; R09.81 Nasal congestion; Z79.899 Other long term (current) drug therapy; Z11.52 Encounter for screening for COVID-19
CPT/HCPCS: 36415; 71046; 80048; 80076; 83690; 83735; 83880; 84484; 85025; 87502; 87635; 93005; 94640; 99284; 99285

== ENCOUNTER → 2025-08-18 08:47 | Outpatient (BNV) | payer OTHER, SELFPAY | PROVIDERS: Emergency Provider Emergency Medicine; PCP Internal Medicine; Visit Provider Radiology Diagnostic Radiology | DX: R05.9 Cough, unspecified (principal) | CPT/HCPCS: 71046 ==

== ENCOUNTER → 2025-08-18 09:19 | Outpatient (BNV) | payer OTHER, SELFPAY | PROVIDERS: Emergency Provider Emergency Medicine; PCP Internal Medicine; Visit Provider Internal Medicine Cardiovascular Disease | DX: R94.31 Abnormal electrocardiogram [ECG] [EKG] (principal); R07.9 Chest pain, unspecified | CPT/HCPCS: 93010 ==

== ENCOUNTER 2025-09-04 08:21 | Outpatient (AMB) | payer OTHER, SELFPAY ==
--- NOTE | 2025-09-04 11:24 | A.OFFVIS_ITS ---
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 Allergies erythromycin base (ERYTHROMYCIN BASE) Allergy (Severe, Verified 09/04/25 11:25) HIVES, SWELLING morphine (MORPHINE) Allergy (Severe, Verified 09/04/25 11:25) SWELLING,HIVES mushroom Allergy (Severe, Verified 09/04/25 11:25) SWELLING/HIVES codeine (Codeine) Allergy (Intermediate, Verified 09/04/25 11:25) HIVES/SWELLING meperidine (From Demerol) Allergy (Intermediate, Verified 09/04/25 11:25) HIVES/SWELLING metronidazole (From Flagyl) Allergy (Intermediate, Verified 09/04/25 11:25) HIVES/SWELLING oxycodone (From Tylox) Allergy (Intermediate, Verified 09/04/25 11:25) HIVES/SWELLING Penicillins Allergy (Intermediate, Verified 09/04/25 11:25) HIVES/SWELLING Sulfa (Sulfonamide Antibiotics) Allergy (Intermediate, Verified 09/04/25 11:25) HIVES/SWELLING tramadol (TRAMADOL) Allergy (Unknown, Verified 09/04/25 11:25) SWELLING ondansetron (From ZOFRAN) Adverse Reaction (Intermediate, Verified 09/04/25 11:25) VOMITING codeine Allergy (Unknown, Uncoded 09/04/25 11:25) swelling, hives demerol Allergy (Unknown, Uncoded 09/04/25 11:25) swelling hives e-mycin Allergy (Unknown, Uncoded 09/04/25 11:25) swelling, hives morphine Allergy (Unknown, Uncoded 09/04/25 11:25) swelling, hives PCN Allergy (Unknown, Uncoded 09/04/25 11:25) swelling, hives sulfa Allergy (Unknown, Uncoded 09/04/25 11:25) swelling, hives toradol Allergy (Unknown, Uncoded 09/04/25 11:25) swelling, hives vicodin Allergy (Unknown, Uncoded 09/04/25 11:25) vomiting From TORADOL Adverse Reaction (Severe, Uncoded 09/04/25 11:25) VOMITING Medication List - Last Reconciled 09/04/25 by Pipe Lundberg MD bupropion HCl SR (Wellbutrin SR) 150 mg PO DAILY losartan mg PO omeprazole mg PO verapamil mg PO HPI HPI 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: Details: Start time: 11.22am, End time: 12.07pm ?I spent 40 minutes speaking with the patient on the phone plus an additional 5 minutes reviewing and updating records for a total of 45 minutes HPI Comments Details: Previous weight loss efforts: Atkins diet, Cabbage diet, exercise Wakes up: 5.30am, Sleeps: 10pm Breakfast: 9am (cheese sticks, yogurt) Lunch: 12pm (chicken wrap) Dinner: 6pm (pasta, meat, beef, ribs, pork, rice, potatoes) Snacks: 10.30am (Fruit bar, pretzels), 7-8pm (ice cream, donuts, bread) Exercise: has a gym membership Beverages: Coffee: (1 cup/d with creamer), Tea: none, Soda: none, Juice: none, ETOH: 2/yr PFSH Medical History (Updated 09/04/25 @ 11:29 by Pipe Lundberg MD) Anxiety Depression Hypertension GERD (gastroesophageal reflux disease) Morbid obesity Hx of nephrolithotomy with removal of calculi Surgical History (Updated 08/13/25 @ 15:14 by Suze Flores CMA) Hx of section Hx of hysterectomy Hx of cholecystectomy Hx of appendectomy Hx of tonsillectomy Family History (Updated 08/13/25 @ 15:16 by Suze Flores CMA) Mother Stroke Brain injury Hypertension Kidney disease Lung cancer Father Hypertension Diabetes 1.5, managed as type 2 Son Phenylketonuria Kidney disease Social History (Updated 08/13/25 @ 15:16 by Suze Flores CMA) Alcohol intake: current Alcohol intake frequency: holidays/special occasions only Tobacco use type: Cigarette Cigarettes Per Day: 3 Telehealth Telehealth Telehealth Platform: Telephone Location of provider rendering services: practice address Location of patient: address on file Patient Identification confirmed using: Name, : Yes Telehealth method: voice only Patient verbally consented to treatment: Yes Patient verbally consented to billing insurance company: Yes Patient informed of any privacy concerns related to visit: Yes Minutes spent on Phone/Video with Pt.: 45 Assessment & Plan Assessment & Plan (1) Morbid obesity: Code(s): E66.01 - Morbid (severe) obesity due to excess calories Category: Medical Plan: 1. As we discussed, based on your present BMI you are approximately 110lbs overweight. In my opinion, for any weight loss strategy to be successful should have a high probability to help you lose at least 100lbs out of 110lbs of the extra weight you carry. We discussed in detail the available therapeutic options: 1) our lifestyle intervention program that has an average weight loss of 10% in 3 months.?Some patients continue it for longer and have lost over 50lbs but this is not common. Our lifestyle program can be provided by me or by using our software donato, the [employer] network donato. I will provide you with a link to use the donato if you choose to do so. We use protein shakes and protein bars to replace some of the meals of the day and cover your appetite better. We will decide together the exact combination. 2) Weight loss medications: these can be used in conjunction with our lifestyle program or you may choose to use them without following a lifestyle program from my program but your own. As we discussed, your insurance requires you to do the lifestyle program for 3 months before they approve the medications but unfortunately as of November 2025 they anoubced that they won't cover them anymore. We also discussed that you can self pay for the first 3 months and the cost is $249 for the first month and $499 for any other month thereafter. These payments go to the drug company directly and not to us. We also discussed the use of a pill called Phentermine but that can raise your blood pressure and you are already on two antihypertensive medications. 3) We also discussed about the lap sleeve gastrectomy. In my opinion this is the best option to solve your problem based on your situation and should be used in conjunction with the two previous options. A good strategy to make this decision to proceed with surgery, is to set some goals with the lifestyle intervention and medication options: If you don't lose at least 10lbs the first 6 weeks after starting the program or at least 10% in 3 months. I will get back to you for a specific meal plan for low oxalate nutritional plan and we discussed how we can prevent kidney stone flare ups postop by prophylactic IV hydrations. ?I emphasized the importance of close follow-up, adherence to instructions and good communication. The surgery does not replace the need to change your lifestlyle which is the cause of the obesity problem. The surgery provides the motivation to try again to change your lifestyle, it reduces the appetite and make the transition to a better lifestyle easier and doubles the amount of weight you would lose compared to doing the lifestyle change without the surgery. You will need to be on a liquid diet with protein shakes for 2 weeks before surgery to maximize weight loss and boost your nutritional status to recover better from surgery and also for the first two weeks after surgery to let the stomach heal before we introduce other foods. After the first 2 weeks we will introduce protein bars and soft foods like scrambled eggs, cottage cheese and yogurt and after the 6th week will introduce meat, fish and cooked vegetables in small amounts. Over time you should be able to eat everything in small amounts. Side effects like nausea, vomiting, heartburn or abdominal pain are not common in the practice unless you are not following in the practice. This operation requires lifetime commitment to following in our practice and communication with me. You will much less weight and experience side effects if you don?t communicate or not following in the practice. Complications are rare and in our practice is about 1/10 of the national average.
[2025-09-04 11:36] VITALS: BMI 42.0
== END 2025-09-04 12:08 | disposition home or self-care (01) ==
LOC: HO.HBS 08:21
PROVIDERS: PCP Internal Medicine; Visit Provider Surgery
DX: E66.01 Morbid (severe) obesity due to excess calories (principal)
CPT/HCPCS: 99204

== ENCOUNTER 2025-09-21 11:34 | Outpatient (REF) | payer OTHER, SELFPAY ==
--- NOTE | ~2025-09-21 | XR_ITS ---
EXAMINATION: XR CHEST CLINICAL INFORMATION: E66.01 - Morbid (severe) obesity due to excess calories COMPARISON: X-ray 08/18/2025 TECHNIQUE: 2 views of the chest were obtained. FINDINGS: No significant abnormality is noted involving the heart, lungs, mediastinum, bony thorax or soft tissues. XR/XR chest 2V IMPRESSION: No acute findings. Electronically signed by: Marcial Liang MD 09/21/2025 11:58 AM EDT
--- NOTE | 2025-09-21 12:03 | ECG_ITS ---
Test Reason : E66.01 - Morbid (severe) obesity due to excess calories Blood Pressure : */* mmHG Vent. Rate : 79 BPM Atrial Rate : 79 BPM P-R Int : 164 ms QRS Dur : 68 ms QT Int : 394 ms P-R-T Axes : 36 9 31 degrees QTcB Int : 451 ms Normal sinus rhythm Normal ECG When compared with ECG of 18-Aug-2025 09:34, Nonspecific T wave abnormality no longer evident in Anterior leads Referred By: Pipe Lundberg Electronically Signed By: ASHLEY BORJA
[2025-09-21 12:40] LABS: MANUAL DIFF FLAG NO
[2025-09-21 13:58] LABS: Hematocrit 42.5 % (37.0-47.0); Hemoglobin 13.7 g/dl (12.0-16.0); Imm Gran Abs Auto 0.11 X10*3/uL (0.00-0.03); Imm Gran Pct Auto 1.1 % (0.0-0.4); Lymphocytes Absolute Auto 3.7 X10*3/uL (1.2-4.9); Mean Corpuscular HGB Conc 32.2 g/dl (31.0-35.0); Mean Corpuscular Hemoglobin 27.7 pg (27.0-33.0); Mean Corpuscular Volume 86.0 fL (80.0-98.0); NRBC Abs Auto 0.000 X10*3/uL (0.0-0.012); NRBC Pct Auto 0.0 /100WBC (0.0-0.2); Platelet Count 226 X10*3/uL (160-400); Red Blood Count 4.94 X10*6/uL (4.20-5.50); White Blood Count 10.1 X10*3/uL (4.8-10.8)
[2025-09-21 14:11] LABS: Total Hemoglobin (HGBA1C) 3506.7248 umol/L
[2025-09-21 14:57] LABS: Alanine Aminotransferase 28 U/L (0-31); Albumin Level 4.5 g/dL (3.5-5.0); Alkaline Phosphatase 93 U/L (39-117); Anion Gap 13 (12-20); Aspartate Amino Transferase 27 U/L (5-31); Blood Urea Nitrogen 14 mg/dL (9-16); Calcium 8.8 mg/dL (8.4-10.2); Carbon Dioxide 25 mmol/L (22-29); Chloride 106 mmol/L (96-108); Cholesterol 221 mg/dL (<200); Estimated Glomerular Filt Rate > 60; Ferritin 80 ng/mL (10-250); HDL Cholesterol 48 mg/dL (>40); Iron 75 mcg/dL (30-160); Percent Iron Saturation 22 % (15-50); Potassium 3.7 mmol/L (3.3-5.1); Sodium 140 mmol/L (135-145); Total Iron Binding Capacity 343 mcg/dL (228-428); Total Protein 7.0 g/dL (6.5-8.0); Triglycerides 201 mg/dL (<150); Unsaturated Iron Binding 268 ug/dL
--- OUTSIDE RECORDS SUMMARY | 2025-09-21 14:58 | XMS_ITS | Encounter Summary ---
Author Organization [facility] Address [address] [place] [address] Care Team Providers Care Dredge Engineer Name Role Phone Woody Boo MD Primary Care Provider [phone] Encounter Details Date Type Department Care Team (Late st Contact Info) Description 12/31/2024 Lab Requisition [facility] Lab [address] [facility] [place] [phone] Salma Lopez PA [address] [employer] [address] [place] [address] Calculus of kidney Social History Tobacco Use [...] Description 11/13/2025 7:30 AM EST Hospital Encounter [facility] Main OR [address] [place] [phone] Tommy Marie MD [address] [place] [address] 11/13/2025 7:30 AM EST - 11/13/2025 8:15 AM EST Surgery [facility] Main OR [address] [place] [phone] Tommy Marie MD [address] [facility] [address] [place] [address] ESWL LEFT [[id number] (CPT )] Scheduled Procedures Name Priority Associated [...] LAB CHEMISTRY METHOD 12/31/2024 7:50 PM EST [facility] Blood Venous blood specimen / Unknown 12/31/2024 3:28 PM EST 12/31/2024 7:02 PM EST us [place] [facility] BLOOD ORDERABLES Final Res ult [facility] [address] [place] [address], * Parathyroid hormone intact (12/31/2024 3:28 PM EST) PTH 67.9 18.5 - 88.0 pcg/mL LAB CHEMISTRY METHOD 12/31/2024 7:51 PM EST [facility] Blood Venous blood specimen / Unknown 12/31/2024 3:28 PM EST 12/31/2024 7:02 PM EST us [place] [facility] BLOOD ORDERABLES Final Res ult [facility] [address] [place] [address], documented in this encounter Visit Diagnoses Diagnosis Calculus of kidney Calculus of kidney documented in this encounter Care Teams Dredge Engineer Relationship Specialty Start Date End Date Woody Boo MD [address] [place] [phone] PCP - General Internal Medicine 12/17/20 documented as of this encounter
--- OUTSIDE RECORDS SUMMARY | 2025-09-21 14:58 | XMS_ITS | Clinical Summary ---
Author Organization [facility] Address [address] [place] [phone] Phone Care Team Providers Care Change Room Attendant Name Role Phone Woody Boo MD Primary Care Provider +1 -[phone] Allergies Active Allergy Reactions Criticality Noted Date Comments Codeine Hives,Other (see comments),Swelling High 10/01/2024 Other Reaction(s): facial swelling, hives, trouble breathing Erythromycin Hives,Other (see comments),Swelling High 10/01/2024 Other Reaction(s): facial swelling, difficulty breathing Hydrocodone-Acetaminoph en High 10/01/2024 Ketorolac Tromethamine 04/03/2025 Other Reaction(s): facial swelling, difficulty breathing Meperidine Hives,Swelling High 10/01/2024 Meperidine Hcl Swelling 04/03/2025 Other Reaction(s): difficulty breathing, full facial swelling Nirmatrelvir-Ritonavir Rash Low 04/03/2025 Oxycodone-Acetaminophen Hives,Swelling High 10/01/20 24 Other Reaction(s): facial swelling, difficulty breathing Penicillins Hives,Other (see comments),Swelling High 10/01/2024 Other Reaction(s): facial swelling, difficulty breathing Tramadol Nausea And Vomiting High 10/01/2024 Medications verapamil (CALAN) 80 MG tablet Take 80 mg by mouth 1 (one) time each day Active losartan (COZAAR) 50 MG tablet Take 50 mg by mouth 1 (one) time each day Active buPROPion SR (WELLBUTRIN SR) 150 MG 12 hr tablet Take 150 mg by mouth 1 (one) time each day 12/29/2024 Active omeprazole (PriLOSEC) [address] capsule Take 40 mg by mouth in the morning. 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 Gastroesophageal reflux disease 04/01/2025 Gout 04/01/2025 Hemiplegic migraine 04/01/2025 Hyperlipidemia 04/01/2025 Hypertension 04/01/2025 Renal stone 04/01/2025 Severe obesity 04/01/2025 Ureteric stone 04/01/2025 Encounters Date Type Department Care Team Description 08/05/2025 Office Communication [facility] [address] [address] Chuyita Arthur 08/03/2025 3:30 PM EDT Office Visit [facility] [address] [phone] Misael Desai MD Renal stone (Primary Dx); Hypertension 07/08/2025 Office Communication [facility] [address] [address] Felicity Su from Last 3 Months Immunizations Immunization Administration Dates Next Due DTaP 01/13/1997, 9,1975,1975,06/1975 Hep B, Unspecified 10/28/2013 IPV 08/18/1980, 6,1975,1975,06/1975 MMR 02/15/2018,10/28/2013,05/06/1976 Pfizer SARS-COV-2 12/06/2020,11/16/2020 Pneumococcal Polysaccharide 10/31/2015 Td, Unspecified 09/04/2015,05/23/2007 Tdap 03/07/2019 Family History Medical History Relation Comments Kidney cancer Father Kidney disease Mother Relation Status Comments Father Mother Social History Tobacco Use Types Packs/Day Years Used Date Smoking Tobacco: Never Assessed Comments Unknown Sex and Gender Information Value Date Recorded Sex Assigned at Not on file Legal Sex Female 5:10 PM EST Gender Identity Not on file Sexual Orientation Not on file Last Filed Vital Signs Vital Sign Reading Time Taken Comments Blood Pressure 150/90 08/03/2025 3:51 PM EDT Pulse 89 08/03/2025 3:51 PM EDT Temperature - - Respiratory Rate - - Oxygen Saturation 98% 08/03/2025 3:51 PM EDT Inhaled Oxygen Concentration - - Weight 103 kg (226 lb 6.4 oz) 08/03/2025 3:51 PM EDT Height - - Body Mass Index - - Plan of Treatment Health Maintenance Due Date Last Done Comments Breast Cancer Screening 1975 Hepatitis B Vaccine (1 of 3 - 19+ 3-dose series) 05/0410/28/2013 Pneumococcal Vaccine: 50+ Years (2 of 2 - PCV) 016 10/31/2015 Colorectal Cancer Screening: Annual FOBT 2024 Colorectal Cancer Screening: Colonoscopy 2024 Colorectal Cancer Screening: Sigmoidoscopy 2024 Influenza Vaccine (#1) 2025 Pneumococcal Vaccine: Peds ( 0 to 5 Years) and At-Risk Patients (6 to 49 Years) Discontinued 10/31/2015 Procedures Procedure Name Priority Date/Time Associated Diagnosis Comments PROTEIN / CREATININE RATIO, URINE Routine 06/23/2025 10:02 AM EDT Renal stone Hypertension VITAMIN D 25 HYDROXY Routine 06/23/2025 10:02 AM EDT Renal stone Hypertension URINALYSIS WITH MICROSCOPIC Routine 06/23/2025 10:02 AM EDT Renal stone Hypertension MAGNESIUM Routine 06/23/2025 10:02 AM EDT Renal stone Hypertension RENAL FUNCTION PANEL Routine 06/23/2025 10:02 AM EDT Renal stone Hypertension PTH, INTACT Routine 06/23/2025 10:02 AM EDT Renal stone Hypertension URIC ACID Routine 06/23/2025 10:02 AM EDT Renal stone Hypertension from Last 3 Months Results * (ABNORMAL) Vitamin D 25 hydroxy (06/23/2025 10:02 AM EDT) Vitamin D, 25-OH, Total 23.8(L) 30.0 - 100.0 ng/mL [facility] Comment: Vitamin D deficiency has been defined by the [place] of Medicine and an Endocrine Society practice guideline as a level of serum 25-OH vitamin D less than 20 ng/mL (1,2). The Endocrine Society went on to further define vitamin D insufficiency as a level between 21 and 29 ng/mL (2). 1. IOM ([place] of Medicine). 2010. Dietary reference intakes for calcium and D. [place]: The National Academies Press. 2. Aleida MF, Snow HONEYCUTT, Serjio SAVAGE, et al. Evaluation, treatment, and prevention of vitamin D deficiency: an Endocrine Society clinical practice guideline. JCEM. 2010; 96(7):1911-30. Blood specimen (specimen) Venous blood / Unknown 06/23/2025 10:02 AM EDT 06/23/2025 Misael Desai MD LAB BLOOD ORDERABLES Final Resu lt Performing Organization Address City/[facility]/ZIP Co de Phone Number [email or web address] [address] [place] [address] * Uric acid (06/23/2025 10:02 AM EDT) Uric Acid 3.9 2.6 - 6.2 mg/dL [facility] Comment:Therapeutic target f or gout patients: <6.0 Blood specimen (specimen) Venous blood / Unknown 06/23/2025 10:02 AM EDT 06/23/2025 Misael Desai MD LAB BLOOD ORDERABLES Final Resu lt [email or web address] [place] [address] [place] [address] * PTH, intact (06/23/2025 10:02 AM EDT) PTH 29 15 - 65 pg/mL [facility] Blood specimen (specimen) Venous blood / Unknown 06/23/2025 10:02 AM EDT 06/23/2025 us Misael Desai MD LAB BLOOD ORDERABLES Final Resu lt Performing Organization Address City/[facility]/ZIP Co de Phone Number [facility] [address] [place] [address] * Magnesium (06/23/2025 10:02 AM EDT) Magnesium 2.0 1.6 - 2.3 mg/dL [facility] Blood specimen (specimen) Venous blood / Unknown 06/23/2025 10:02 AM EDT 06/23/2025 us Misael Desai MD LAB BLOOD ORDERABLES Final Resu lt Performing Organization Address City/[facility]/ZIP Co de Phone Number [facility] [address] [place] [address] * Renal function panel (06/23/2025 10:02 AM EDT) Glucose 92 70 - 99 mg/dL [facility] BUN 14 6 - 24 mg/dL [facility] Creatinine 0.84 0.57 - 1.00 mg/dL [facility] eGFR CKD-EPI CR 2020 85 >59 mL/min/1.7 3 [facility] BUN/Creatinine Ratio 17 9 - 23 [facility] Sodium 139 134 - 144 mmol/L [facility] Potassium 4.2 3.5 - 5.2 mmol/L [facility] Chloride 100 96 - 106 mmol/L [facility] Bicarbonate (CO2) 20 20 - 29 mmol/L [facility] Calcium 9.5 8.7 - 10.2 mg/dL [facility] Albumin 4.8 3.9 - 4.9 g/dL [facility] Phosphorus 3.2 3.0 - 4.3 mg/dL [facility] Blood specimen (specimen) Venous blood / Unknown 06/23/2025 10:02 AM EDT 06/23/2025 us Misael Desai MD LAB BLOOD ORDERABLES Final Resu lt [facility] [address] [place] [phone] from Last 3 Months Insurance Medicaid [place] Medicaid Care Teams Change Room Attendant Relationship Specialty Start Date End Date Woody Boo MD [address] [place] [phone] PCP - General Internal Medicine 01/15/25
--- OUTSIDE RECORDS SUMMARY | 2025-09-21 14:58 | XMS_ITS | Clinical Summary ---
Author Organization [facility] Address [address] [place] [address] Phone Care Team Providers Care Regulator Tester Name Role Phone Woody Boo MD Primary Care Provider +1 [phone] Allergies Active Allergy Reactions Criticality Noted Date [...] HISTORICAL LITHOTRIPSY OTHER SURGICAL HISTORY 11/1981 PROCEDURE: [place] TONSILLECTOMY & ADENOIDECTOMY AGE 12/> SECTION PROCEDURE: HISTORICAL DELIVERY OVARIAN CYST REMOVAL PROCEDURE: [place] OVARIAN CYSTECTOMY UNI/BI OTHER SURGICAL HISTORY PROCEDURE: [place] MISSED FIRST TRIMESTER SURGICAL TOTAL ABDOMINAL [...] (gastroesophageal reflux disease) History of transfusion Cancer ([facility] V24, [facility] V28) Uterine cancer ([facility] V24, [facility] V28) PONV (postoperative nausea and vomiting) Social [...] Description 11/13/2025 7:30 AM EST Hospital Encounter [facility] Main OR [address] [place] [phone] Tommy Marie MD [address] [place] [address] 11/13/2025 7:30 AM EST - 11/13/2025 8:15 AM EST Surgery [facility] Main OR [address] [place] [phone] Tommy Marie MD [address] [place] [address] ESWL LEFT [[id number] (CPT )] Scheduled Procedures Name Priority Associated Diagnoses Date/Ti me ESWL Calculus of kidney 11/13/2025 7:30 AM EST Health Maintenance Due Date Last Done Comments Breast Cancer Screening 1975 Colorectal Cancer Screening: Colonoscopy 1975 Hepatitis B Vaccines (1 of 3 - 19+ 3-dose series) 1994 Cervical Cancer Screening: Pap Smear 1996 Pneumococcal Vaccine: 50+ Years (2 of 2 - PCV) 10/31/2016 10/31/2015 Cholesterol Screening (Lipid Panel) 10/29/2022 HIV Screening 10/29/2022 Hepatitis C Screening 10/29/2022 Social Influencers of Health Screening 10/29/2022 Hypertension/CHF/CAD Annual BMP Blood Test 10/10/2024 Depression Screening 11/26/2024 RSV Immunization Adult Patients (1 - Risk 50-74 years 1-dose series) 2025 Zoster Vaccines (1 of 2) 2025 COVID-19 Vaccine (3 - season) 2025 12/06/2020, 11/16/2020 Influenza Vaccine (#1) [...] patient's age to complete this topic Insurance [facility] Advance Directives Documents on File Type Date Recorded 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
--- OUTSIDE RECORDS SUMMARY | 2025-09-21 14:58 | XMS_ITS | Encounter Summary ---
Author Organization [facility] Address [address] [place] [address] Care Team Providers Care Command Post Superintendent Name Role Phone Woody Boo MD Primary Care Provider +1 [phone] Encounter Details Date Type Department Care Team (Late st Contact Info) Description 01/07/2025 Lab Requisition [facility] Lab [address] [facility] [place] [phone] Salma Lopez PA [address] [place] [address] Urinary tract infection, site not specified Social [...] Description 11/13/2025 7:30 AM EST Hospital Encounter [facility] Main [place] [address] [place] [phone] Tommy Marie MD [address] [place] [address] 11/13/2025 7:30 AM EST - 11/13/2025 8:15 AM EST Surgery [facility] Main OR [address] [place] [phone] Tommy Marie MD [address] [place] [address] ESWL LEFT [[id number] (CPT )] Scheduled Procedures Name Priority Associated [...] if clinically indicated. 01/09/2025 2:08 PM EST [facility] Urine Urine specimen obtained by clean catch procedure / Unknown Non-blood Collection / Unknown 01/07/2025 4:00 PM EST 01/07/2025 6:23 PM EST us Salma IVORY LAB MICROBIOLOGY - GENERAL ORD ERABLES Final Result [facility] [address] [place] [address], documented in this encounter Visit Diagnoses Diagnosis Urinary tract infection, site not specified Calculus of kidney documented in this encounter Care Teams Command Post Superintendent Relationship Specialty Start Date End Date Woody Boo MD [address] [place] [phone] PCP - General Internal Medicine 12/17/20 documented as of this encounter
[2025-09-21 15:38] LABS: Folate 10.2 ng/mL (> or = 4.0); Vitamin B12 289 pg/mL (200-900)
== END 2025-09-21 11:35 | disposition home or self-care (01) ==
LOC: HO.XRAY 11:34
PROVIDERS: PCP Internal Medicine; Visit Provider Surgery
DX: E66.01 Morbid (severe) obesity due to excess calories (principal); K21.9 Gastro-esophageal reflux disease without esophagitis; I10 Essential (primary) hypertension
CPT/HCPCS: 36415; 71046; 80053; 80061; 82306; 82607; 82728; 82746; 83036; 83525; 83540; 84425; 84443; 84590; 84630; 85025; 86140; 93005

== ENCOUNTER → 2025-09-21 11:42 | Outpatient (BNV) | payer OTHER, SELFPAY | PROVIDERS: PCP Internal Medicine; Visit Provider Radiology Diagnostic Ultrasound | DX: E66.01 Morbid (severe) obesity due to excess calories (principal) | CPT/HCPCS: 71046 ==

== ENCOUNTER → 2025-09-21 12:03 | Outpatient (BNV) | payer OTHER, SELFPAY | PROVIDERS: PCP Internal Medicine; Visit Provider Internal Medicine | DX: E66.01 Morbid (severe) obesity due to excess calories (principal); Z68.41 Body mass index [BMI] 40.0-44.9, adult | CPT/HCPCS: 93010 ==

== ENCOUNTER 2025-09-28 08:00 | Outpatient (REF) | payer OTHER, SELFPAY ==
[2025-09-28 15:17] LABS: Creatinine, mg/dL 86.69; Phosphorus mg/dL 45.2 mg/dL
[2025-09-28 19:32] LABS: Total Volume 24 Hour Urine 1575 mL
[2025-10-01 21:24] LABS: Calcium/Creatinine Ratio 146 mg/g creat (30-275); Creatinine 24Hr Urine 1.37 g/24 h (0.50-2.15)
[2025-10-08 03:05] LABS: 24hr Urine Total Volume 1575 mL; Oxalic Acid 24 Urine 32.2 mg/24 h (3.6-38.0)
== END 2025-09-28 08:01 | disposition home or self-care (01) ==
LOC: HO.LNP 08:00
PROVIDERS: Visit Provider Surgery
DX: E83.59 Other disorders of calcium metabolism (principal); N29 Other disorders of kidney and ureter in diseases classified elsewhere
CPT/HCPCS: 82340; 83945; 84105

== ENCOUNTER 2025-10-15 06:49 | Day surgery (SDC) | payer OTHER, SELFPAY ==
--- OUTSIDE RECORDS SUMMARY | 2025-09-22 07:54 | XMS_ITS | Encounter Summary ---
Author Organization [facility] Address [address] [place] [address] Care Team Providers Care Paper Products Supervisor Name Role Phone Woody Boo MD Primary Care Provider [phone] [phone] Encounter Details Date Type Department Care Team (Late st Contact Info) Description 12/31/2024 Lab Requisition [facility] Lab [address] [facility] [place] [phone] Salma Lopez PA [address] [place] [phone] Calculus of kidney Social History Tobacco Use [...] Description 11/13/2025 7:30 AM EST Hospital Encounter [facility] Main OR [address] [place] [phone] Tommy Marie MD [address] [place] [address] 11/13/2025 7:30 AM EST - 11/13/2025 8:15 AM EST Surgery [facility] Main OR [address] [place] [phone] Tommy Marie MD [address] [facility] [address] [place] [address] ESWL LEFT [[id number] (CPT )] Scheduled Procedures Name Priority Associated [...] LAB CHEMISTRY METHOD 12/31/2024 7:50 PM EST [facility] Blood Venous blood specimen / Unknown 12/31/2024 3:28 PM EST 12/31/2024 7:02 PM EST us Salma [facility]ORY LAB BLOOD ORDERABLES Final Res ult [facility] [address] [place] [address], * Parathyroid hormone intact (12/31/2024 3:28 PM EST) PTH 67.9 18.5 - 88.0 pcg/mL LAB CHEMISTRY METHOD 12/31/2024 7:51 PM EST [facility] Blood Venous blood specimen / Unknown 12/31/2024 3:28 PM EST 12/31/2024 7:02 PM EST us Salma IVORY LAB BLOOD ORDERABLES Final Res ult [facility] [address] [place] [address], documented in this encounter Visit Diagnoses Diagnosis Calculus of kidney Calculus of kidney documented in this encounter Care Teams Paper Products Supervisor Relationship Specialty Start Date End Date Woody Boo MD [address] [place] [phone] PCP - General Internal Medicine 12/17/20 documented as of this encounter
--- OUTSIDE RECORDS SUMMARY | 2025-09-22 07:54 | XMS_ITS | Encounter Summary ---
Author Organization [facility] Address [address] [place] [address] Care Team Providers Care Air Moving Technician Name Role Phone Woody Boo MD Primary Care Provider +1 [phone] Encounter Details Date Type Department Care Team (Late st Contact Info) Description 01/07/2025 Lab Requisition [facility] [address] [facility] [place] [phone] Salma Lopez PA [address] [place] [address] Urinary tract infection, site not specified Social [...] [facility] Main OR [address] [place] [phone] Tommy Marie MD [address] [place] [address] 11/13/2025 7:30 AM EST - 11/13/2025 8:15 AM EST Surgery [facility] Main OR [address] [place] [phone] Tommy Marie MD [address] [place] [address] ESWL LEFT [[id number] (CPT )] Scheduled Procedures Name Priority Associated [...] if clinically indicated. 01/09/2025 2:08 PM EST [facility] Urine Urine specimen obtained by clean catch procedure / Unknown Non-blood Collection / Unknown 01/07/2025 4:00 PM EST 01/07/2025 6:23 PM EST us Salma IV[facility] LAB MICROBIOLOGY - GENERAL ORD ERABLES Final Result [facility] [address] [place] [address], documented in this encounter Visit Diagnoses Diagnosis Urinary tract infection, site not specified Calculus of kidney documented in this encounter Care Teams Air Moving Technician Relationship Specialty Start Date End Date Woody Boo MD [address] [place] [phone] PCP - General Internal Medicine 12/17/20 documented as of this encounter
--- OUTSIDE RECORDS SUMMARY | 2025-09-22 07:54 | XMS_ITS | Clinical Summary ---
Author Organization [facility] Address [address] [place] [address] Phone Care Team Providers Care Cable Splicer Apprentice Name Role Phone Woody Boo MD Primary Care Provider +1 [phone] Allergies Active Allergy Reactions Criticality Noted Date [...] HISTORICAL LITHOTRIPSY OTHER SURGICAL HISTORY 11/1981 PROCEDURE: [place] TONSILLECTOMY & ADENOIDECTOMY AGE 12/> SECTION PROCEDURE: HISTORICAL DELIVERY OVARIAN CYST REMOVAL PROCEDURE: [place] OVARIAN CYSTECTOMY UNI/BI OTHER SURGICAL HISTORY PROCEDURE: [place] TX MISSED FIRST TRIMESTER SURGICAL TOTAL ABDOMINAL [...] (gastroesophageal reflux disease) History of transfusion Cancer ([facility] V24, [facility] V28) Uterine cancer ([facility] V24, [facility] V28) PONV (postoperative nausea and vomiting) Social [...] Description 11/13/2025 7:30 AM EST Hospital Encounter [facility] Main OR [address] [place] [phone] Tommy Marie MD [address] [place] [address] 11/13/2025 7:30 AM EST - 11/13/2025 8:15 AM EST Surgery [facility] Main OR [address] [place] [phone] Tommy Marie MD [address] [place] [address] ESWL LEFT [[id number] (CPT )] Scheduled Procedures Name Priority Associated [...] patient's age to complete this topic Insurance 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
--- OUTSIDE RECORDS SUMMARY | 2025-09-22 07:54 | XMS_ITS | Clinical Summary ---
Author Organization [facility] Address [address] [place] [phone] Phone Care Team Providers Care Fruit Picker Machine Operator Name Role Phone Woody Boo MD Primary Care Provider +1 [phone] Allergies Active Allergy Reactions Criticality Noted Date [...] 08/05/2025 Office Communication [facility] [address] [phone] Chuyita Arthur 08/03/2025 3:30 PM EDT Office Visit [facility] [address] [phone] Misael Desai MD Renal stone (Primary Dx); Hypertension 07/08/2025 Office Communication [facility] [address] [phone] Felicity Su from Last 3 Months Immunizations [...] Total 23.8(L) 30.0 - 100.0 ng/mL [facility] Comment: Vitamin D deficiency has been defined by the [place] of [employer] and an Endocrine Society practice guideline as a level of serum 25-OH vitamin D less than 20 ng/mL (1,2). The Endocrine Society went on to further define vitamin D insufficiency as a level between 21 and 29 ng/mL (2). 1. IOM ([place] of [employer]). 2010. Dietary reference intakes for [...] ORDERABLES Final Resu lt Performing Organization Address City/[facility]/ZIP Co de Phone Number [email or web address] [address] [place] [address] * Uric acid (06/23/2025 10:02 AM EDT) Uric Acid 3.9 2.6 - 6.2 mg/dL [facility] Comment:Therapeutic target f or gout patients: <6.0 Blood specimen (specimen) Venous blood / Unknown 06/23/2025 10:02 AM EDT 06/23/2025 Misael Desai MD LAB BLOOD ORDERABLES Final Resu lt [email or web address] [place] [address] [place] [address] * PTH, intact (06/23/2025 10:02 AM EDT) PTH 29 15 - 65 pg/mL [facility] Blood specimen (specimen) Venous blood / Unknown 06/23/2025 10:02 AM EDT 06/23/2025 us Misael Desai MD LAB BLOOD ORDERABLES Final Resu lt Performing Organization Address City/[facility]/ZIP Co de Phone Number [facility] [address] [place] [address] * Magnesium (06/23/2025 10:02 AM EDT) Magnesium 2.0 1.6 - 2.3 mg/dL [facility] Blood specimen (specimen) Venous blood / Unknown 06/23/2025 10:02 AM EDT 06/23/2025 us Misael Desai MD LAB BLOOD ORDERABLES Final Resu lt Performing Organization Address City/[facility]/ZIP Co de Phone Number [facility] [address] [place] [phone] * Renal function panel (06/23/2025 10:02 AM EDT) Glucose 92 70 - 99 mg/dL [facility] BUN 14 6 - 24 mg/dL [facility] Creatinine 0.84 0.57 - 1.00 mg/dL [facility] eGFR CKD-EPI CR 2020 85 >59 mL/min/1.7 3 [facility] BUN/Creatinine Ratio 17 9 - 23 [facility] Sodium 139 134 - 144 mmol/L [facility] Potassium 4.2 3.5 - 5.2 mmol/L [facility] Chloride 100 96 - 106 mmol/L [facility] Bicarbonate (CO2) 20 20 - 29 mmol/L [facility] Calcium 9.5 8.7 - 10.2 mg/dL [facility] Albumin 4.8 3.9 - 4.9 g/dL [facility] Phosphorus 3.2 3.0 - 4.3 mg/dL [facility] Blood specimen (specimen) Venous blood / Unknown 06/23/2025 10:02 AM EDT 06/23/2025 us Misael Desai MD LAB BLOOD ORDERABLES Final Resu lt [facility] [address] [place] [phone] from Last 3 Months Insurance Medicaid [place] Medicaid Care Teams Fruit Picker Machine Operator Relationship Specialty Start Date End Date Woody Boo MD [address] [place] [phone] PCP - General Internal Medicine 01/15/25
--- NOTE | 2025-10-12 12:17 | HO.ANESPROP2 ---
Documented by User: Jovita Lee NP 10/12/25 12:20 HPI - Anesthesia Eval Consult details Narrative: 50yo F for Upper Endoscopy BMI 42 Multiple med allergies with Hives/Swelling PMFSH Active Problems Active Problems: All Active Problems Vitamin B12 deficiency (Acute) Nephrocalcinosis (Acute) Anxiety (Acute) Depression (Acute) Hypertension (Acute) GERD (gastroesophageal reflux disease) (Acute) Morbid obesity (Acute) Past Medical History Medical History Vitamin B12 deficiency Nephrocalcinosis Anxiety Depression Hypertension GERD (gastroesophageal reflux disease) Morbid obesity Hx of nephrolithotomy with removal of calculi Family History Family History Mother Stroke Brain injury Hypertension Kidney disease Lung cancer Father Hypertension Diabetes 1.5, managed as type 2 Son Phenylketonuria Kidney disease Surgical History Surgical History Hx of section Hx of hysterectomy Hx of cholecystectomy Hx of appendectomy Hx of tonsillectomy Social History Social History Alcohol intake: current Alcohol intake frequency: holidays/special occasions only Patient Tobacco Use Status: Current everyday Tobacco user Tobacco use type: Cigarette Cigarettes Per Day: 3 Use of substances other than those prescribed or required for medical reasons: No Advance Directives: No Advance Directives Information Provided: Yes Meds Allergies Allergy/AdvReac Type Severity Reaction Status Date / Time erythromycin base Allergy Severe HIVES, Verified 09/04/25 11:25 (ERYTHROMYCIN BASE) SWELLING morphine (MORPHINE) Allergy Severe SWELLING,HI Verified 09/04/25 11:25 VES mushroom Allergy Severe SWELLING/HI Verified 09/04/25 11:25 VES codeine (Codeine) Allergy Intermediate HIVES/SWELL Verified 09/04/25 11:25 ING meperidine (From Demerol) Allergy Intermediate HIVES/SWELL Verified 09/04/25 11:25 ING metronidazole (From Flagyl) Allergy Intermediate HIVES/SWELL Verified 09/04/25 11:25 ING oxycodone (From Tylox) Allergy Intermediate HIVES/SWELL Verified 09/04/25 11:25 ING Penicillins Allergy Intermediate HIVES/SWELL Verified 09/04/25 11:25 ING Sulfa (Sulfonamide Allergy Intermediate HIVES/SWELL Verified 09/04/25 11:25 Antibiotics) ING tramadol (TRAMADOL) Allergy Unknown SWELLING Verified 09/04/25 11:25 vicodin Allergy Unknown vomiting Uncoded 09/04/25 11:25 Home Medications ?Medication ?Instructions ?Recorded ?Confirmed ?Last Taken ?Type losartan 50 mg tablet 50 mg PO DAILY 08/13/25 10/13/25 Unknown History omeprazole 40 mg capsule,delayed 20 mg PO DAILY 08/13/25 10/13/25 Unknown History release verapamil 80 mg tablet 80 mg PO DAILY 08/13/25 10/13/25 Unknown History Assessment and Plan Assessment Anesthesia Assessment: Chart Reviewed Documented by User: Roseanne Monge MD 10/15/25 07:56 PMF Past Medical History Medical History Vitamin B12 deficiency Nephrocalcinosis Anxiety Depression Hypertension GERD (gastroesophageal reflux disease) Morbid obesity Hx of nephrolithotomy with removal of calculi Family History Family History Mother Stroke Brain injury Hypertension Kidney disease Lung cancer Father Hypertension Diabetes 1.5, managed as type 2 Son Phenylketonuria Kidney disease Surgical History Surgical History Hx of section Hx of hysterectomy Hx of cholecystectomy Hx of appendectomy Hx of tonsillectomy History of Problems with Anesthesia: No Social History Social History Alcohol intake: current Alcohol intake frequency: holidays/special occasions only Patient Tobacco Use Status: Current everyday Tobacco user Tobacco use type: Cigarette Cigarettes Per Day: 3 Use of substances other than those prescribed or required for medical reasons: No Advance Directives: No Advance Directives Information Provided: Yes Meds Allergies Allergy/AdvReac Type Severity Reaction Status Date / Time erythromycin base Allergy Severe HIVES, Verified 09/04/25 11:25 (ERYTHROMYCIN BASE) SWELLING morphine (MORPHINE) Allergy Severe SWELLING,HI Verified 09/04/25 11:25 VES mushroom Allergy Severe SWELLING/HI Verified 09/04/25 11:25 VES codeine (Codeine) Allergy Intermediate HIVES/SWELL Verified 09/04/25 11:25 ING meperidine (From Demerol) Allergy Intermediate HIVES/SWELL Verified 09/04/25 11:25 ING metronidazole (From Flagyl) Allergy Intermediate HIVES/SWELL Verified 09/04/25 11:25 ING oxycodone (From Tylox) Allergy Intermediate HIVES/SWELL Verified 09/04/25 11:25 ING Penicillins Allergy Intermediate HIVES/SWELL Verified 09/04/25 11:25 ING Sulfa (Sulfonamide Allergy Intermediate HIVES/SWELL Verified 09/04/25 11:25 Antibiotics) ING tramadol (TRAMADOL) Allergy Unknown SWELLING Verified 09/04/25 11:25 vicodin Allergy Unknown vomiting Uncoded 09/04/25 11:25 Home Medications ?Medication ?Instructions ?Recorded ?Confirmed ?Last Taken ?Type losartan 50 mg tablet 50 mg PO DAILY 08/13/25 10/13/25 Unknown History omeprazole 40 mg capsule,delayed 20 mg PO DAILY 08/13/25 10/13/25 Unknown History release verapamil 80 mg tablet 80 mg PO DAILY 08/13/25 10/13/25 Unknown History Exam Airway Mallampati Class: III TM Dist: >3cm Neck ROM: Full Loose/Missing/Broken Teeth: No Heart: RRR Lungs: CTA Assessment and Plan Assessment Anesthesia Assessment: Anesthesia Plan Discussed Final Anesthetic Review History of Problems with Anesthesia: No NPO: Yes ASA Class: III Final Preanesthetic Review: Meds/Allgs Chart Reviewed, Consent Obtained/Reviewed and Anes Risks/Benef Reviewed Patient Risk: Intermediate Procedure Risk: Intermediate Anesthetic Plan Anesthetic Plan: MAC: Disposition: Standard PACU
[2025-10-13 11:12] VITALS: BMI 42.0
[2025-10-15 07:06] VITALS: BMI 42.8
[2025-10-15 07:24] VITALS: BP 130/88; PULSE 93; RESP 16; TEMP 36.4; O2SAT 96
--- NOTE | 2025-10-15 08:24 | MHC.SHP ---
Pre-Procedural Eval Section A - 24 Hr Update-Section A only Date of Service: 10/15/25 The patient is an INPATIENT: No The patient has been examined within 24 hours of the surgical procedure. The History & Physical has been completed within 30 days and I have reviewed it.: Yes Section B - Complete if H&P > 30 days Chief Complaint: Morbid (severe) obesity due to excess calories Details of Present Illness: GERD Relevant Family History (Specify if Yes): No Relevant Social History: None Present Medications: None Medical History: No relevant PMH History of Previous Operations: No relevant previous surgery Allergies: Allergies Allergy/AdvReac Type Severity Reaction Status Date / Time erythromycin base Allergy Severe HIVES, Verified 09/04/25 11:25 (ERYTHROMYCIN BASE) SWELLING morphine (MORPHINE) Allergy Severe SWELLING,HI Verified 09/04/25 11:25 VES mushroom Allergy Severe SWELLING/HI Verified 09/04/25 11:25 VES codeine (Codeine) Allergy Intermediate HIVES/SWELL Verified 09/04/25 11:25 ING meperidine (From Demerol) Allergy Intermediate HIVES/SWELL Verified 09/04/25 11:25 ING metronidazole (From Flagyl) Allergy Intermediate HIVES/SWELL Verified 09/04/25 11:25 ING oxycodone (From Tylox) Allergy Intermediate HIVES/SWELL Verified 09/04/25 11:25 ING Penicillins Allergy Intermediate HIVES/SWELL Verified 09/04/25 11:25 ING Sulfa (Sulfonamide Allergy Intermediate HIVES/SWELL Verified 09/04/25 11:25 Antibiotics) ING tramadol (TRAMADOL) Allergy Unknown SWELLING Verified 09/04/25 11:25 vicodin Allergy Unknown vomiting Uncoded 09/04/25 11:25 Review of Systems Sugical H&P ROS: Negative: Constitution, Cardiovascular, Respiratory, Neurological, Psychiatric, Hem-Onc, Allergic/Immunologic, Gastrointestinal, Genitourinary, Musculoskeletal, Integumentary, Endocrine and Eyes/Ears/Nose/Throat Exam Surgical H&P Exam: Normal: HEENT, Normal: Heart, Normal: Lungs, Normal: Extremities, Normal: Abdomen, Normal: Skin and Normal: Neurological Plan Diagnosis/Plan: Unchanged (EGD to assess etiology of GERD. Risks of bleeding and perforation were discussed with the patient and she is in agreement with the plan.) I have reviewed the history and physical and performed a pertinent physical examination on my patient. No changes have occurred unless specified. Time Spent With Patient Time: Total time managing care of this patient today ____ minutes.
--- NOTE | 2025-10-15 08:27 | PM.OP ---
Brief Operative Note Date of Service: 10/15/25 Pre-op diagnosis: GERD Post-op diagnosis: same (& small diaphragmatic hernia) Procedure: PROCEDURE DATE: 10/15/2025 PREOPERATIVE DIAGNOSIS: GERD POSTOPERATIVE DIAGNOSIS: ?Same as above. small diaphragmatic hernia PROCEDURE: [id number] with biopsies Surgeon: ?Venkat Lundberg M.D.. Ph.D. [employer]: None ? Anesthesia: IV sedation Estimated blood loss: ?Minimal FINDINGS AND PROCEDURE: ? OPERATIVE INDICATIONS: ?The patient is a 50 year old female known to me who is interested in bariatric surgery. The patient has GERD. Based on this information I recommended an upper endoscopy to evaluate the patient's symptoms. Risks and complications of the surgery were discussed with the patient in advance particularly the possibility of perforation or bleeding that may require surgical intervention. The patient understood the risks and was in agreement with the plan. ? PROCEDURE: After informed consent was obtained by the patient, the patient was ?transferred to the Operating Room and was placed in the supine position.? After successful induction of IV sedation, a mouth block was inserted and the patient was placed in the left lateral decubitus position. An upper endoscopy was performed next, the oropharynx and esophagus appeared within the normal limits. There was a small 1cm hiatal hernia. The z-line was smooth. Two biopsies were obtained from the distal esophagus 2-3 cm proximal to the GE junction and two additional biopsies from the GE junction. The stomach was entered and it appeared to be of normal size. There was no gastritis. There was no stricture or ulcer. A biopsy was obtained from the gastric fundus and the antrum. No significant bleeding was noted from any of the biopsy sites. Retroflexion of the scope confirmed the presence of a small diaphragmatic hernia. The scope was then advanced into the duodenum all the way to the 4th portion, which appeared to be normal as well. At that point the duodenum ?and the stomach were decompressed and the scope was withdrawn from the patient's mouth. The patient extubated and was transferred in stable condition to the Recovery Room for further care. I was present and performed all steps of the procedure. There were no residents to assist with this case. Venkat Lundberg M.D., Ph.D. Surgeon: Pipe Lundberg MD Anesthesia: MAC Was an [employer] used for this Procedure?: No Estimated blood loss (mL): 0 IV fluids (mL): 400 Urine output (mL): 0 (No Bradshaw to record output) Pathology: other (1) antrum x1, 2) fundus x1, 3) GE junction x2, 4) distal esophagus x2) Condition: stable Disposition: PACU
[2025-10-15 08:50] VITALS: BP 113/68; PULSE 82; RESP 18; TEMP 36.6; O2SAT 96
[2025-10-15 09:05] VITALS: BP 124/72; PULSE 77; RESP 18; O2SAT 95
[2025-10-15 09:20] VITALS: BP 125/74; PULSE 83; RESP 18; TEMP 36.6; O2SAT 97
== END 2025-10-15 10:01 | disposition home or self-care (01) ==
PROVIDERS: PCP Internal Medicine; Visit Provider Surgery
PROC: 0DJ08ZZ Inspection of Upper Intestinal Tract, Via Natural or Artificial Opening Endoscopic (ICD-10-PCS; CPT 43235; principal; 2025-10-15 08:30)
DX: K21.9 Gastro-esophageal reflux disease without esophagitis (principal); E66.01 Morbid (severe) obesity due to excess calories; Z68.41 Body mass index [BMI] 40.0-44.9, adult; K29.50 Unspecified chronic gastritis without bleeding; K44.9 Diaphragmatic hernia without obstruction or gangrene; I10 Essential (primary) hypertension; F32.A Depression, unspecified; F41.9 Anxiety disorder, unspecified; Z87.442 Personal history of urinary calculi; Z79.899 Other long term (current) drug therapy; Z88.0 Allergy status to penicillin; Z88.1 Allergy status to other antibiotic agents; Z88.2 Allergy status to sulfonamides; Z88.5 Allergy status to narcotic agent; Z90.49 Acquired absence of other specified parts of digestive tract; Z90.710 Acquired absence of both cervix and uterus; F17.210 Nicotine dependence, cigarettes, uncomplicated
CPT/HCPCS: 43239; 88305; 88313; 88342; J2003; J2250; J2704

== ENCOUNTER → 2025-10-15 06:49 | Outpatient (BNV) | payer OTHER, SELFPAY | PROVIDERS: PCP Internal Medicine; Visit Provider Surgery | DX: K21.9 Gastro-esophageal reflux disease without esophagitis (principal); K44.9 Diaphragmatic hernia without obstruction or gangrene | CPT/HCPCS: 43239 ==